=== PATIENT | female | born 1940 | race Caucasian/White ===

== ENCOUNTER → 2017-02-15 | Outpatient (CLI) | payer OTHER ==
[~2017-02-15] MED LIST: ACET-1311 PO; ALBUAER19 INH; AMOX500C3 PO; CLB/200 PO; CLOP1TAB15 PO; CLR10 PO; FLNIN NAE; GLUCTAB7 PO; HYZ/10015 PO; LIDO5DIS10 TD; LORA0.5T12 PO; METR0.754 TOP; RANI300T2 PO
[2017-02-15 11:01] LABS: ALT/SGPT 27 U/L (12-78); BLOOD UREA NITROGEN 21 mg/dl (7-18); BUN/CREATININE RATIO 24.6 (10-20); CARBON DIOXIDE 30 mmol/L (21-32); CHLORIDE 99 mmol/L (98-107); CHOLESTEROL 216 mg/dl (0-200); CREATININE 0.87 mg/dl (0.60-1.20); GLUCOSE 93 mg/dl (70-99); POTASSIUM 3.9 mmol/L (3.5-5.1); SODIUM 136 mmol/L (136-145); TRIGLYCERIDES 84 mg/dl (0-150); VERY LOW DENSITY LIPOPROT CALC 17 mg/dl
[2017-02-15 11:11] LABS: ALB/GLOB RATIO 1.3 (0.9-2); ALKALINE PHOSPHATASE 51 U/L (45-117); AST/SGOT 19 U/L (15-37); CHOLESTEROL/HDL RATIO 3.4; HDL CHOLESTEROL 64 mg/dl; LDL CHOLESTEROL CALCULATED 135 mg/dl
[2017-02-15 11:21] LABS: CALCIUM 9.8 mg/dl (8.5-10.1)
[2017-02-15 11:32] LABS: ESTIMATED AVERAGE GLUCOSE 120 mg/dl; HA1C FLAG Normal (Normal)
[2017-02-15 12:05] LABS: RATIO 4.9 mcg/mg (0-30.0)
== END | disposition home or self-care (01) ==
LOC: C.LABBC 08:27
PROVIDERS: ATTEND Family Medicine
DX: E11.9 Type 2 diabetes mellitus without complications (principal); E78.5 Hyperlipidemia, unspecified; I10 Essential (primary) hypertension

== ENCOUNTER → 2017-06-28 | Outpatient (CLI) | payer OTHER ==
--- NOTE | 2017-06-29 14:20 | MAMMOGRAPHY REPORT ---
BILATERAL DIGITAL SCREENING MAMMOGRAM WITH CAD: 06/28/2017 CLINICAL HISTORY: Routine screening. Patient has no complaints. TECHNIQUE: Bilateral CC and MLO views were obtained. Current study was also evaluated with a Compute r Aided Detection (CAD) system. COMPARISON: Comparison is made to exams dated: 06/16/2016 mammogram, 05/01/2015 mammogram, 04/11/2014 m ammogram, 04/10/2013 mammogram, 03/15/2012 mammogram, and 03/12/2011 mammogram - [facility] enter. BREAST COMPOSITION: There are scattered areas of fibroglandular density in both breasts. FINDINGS: Linear scar markers overlie each breast, denoting areas of prior surgical excisions. There are numerous stable groupings of similar appearing punctate microcavitation scattered bilaterally, s table comparing to all available prior mammograms. No new suspicious mass, unexpected area of wisam ectural distortion or cluster of new, suspicious microcalcifications is seen. IMPRESSION: ACR BI-RADS CATEGORY 1: NEGATIVE There is no mammographic evidence of malignancy. A 1 year screening mammogram is recommended. The pa tient will receive written notification of the results. Approximately 10% of breast cancers are not detected with mammography. A negative mammographic report should not delay biopsy if a clinically suggestive mass is present. Verna Frost M.D. ay/:06/28/2017 16:12:27 Correctional Officer Chief: Stephanie JUÁREZ(Danika)(Rebekah), [facility] letter sent: Normal 1/2 BI-RADS Code: ACR BI-RADS Category 1: Negative
== END | disposition home or self-care (01) ==
LOC: C.MAMM 11:30
PROVIDERS: ATTEND Obstetrics & Gynecology
DX: Z12.31 Encounter for screening mammogram for malignant neoplasm of breast (principal)

== ENCOUNTER → 2017-08-10 | Outpatient (CLI) | payer OTHER ==
--- NOTE | 2017-08-10 11:25 | DIAGNOSTIC IMAGING REPORT ---
L-SPINE MIN 4 VIEWS ROUTINE CLINICAL HISTORY: Z79.899 Long-term use of high-risk [id number] COMPARISON STUDY: No previous studies for comparison. FINDINGS: There is an S-shaped thoracolumbar scoliosis. There are moderately advanced multilevel degenerative changes. No acute fractures or traumatic subluxations are visualized. There are postsurgical changes of a total right hip arthroplasty. There are osteoarthritic changes involving the left hip. There is no pathologic bowel dilatation. IMPRESSION: 1. Scoliosis and moderately advanced multilevel degenerative change 2. No acute fractures identified Electronically signed by: Jaime Kaminski M.D. 08/10/2017 11:23 AM Dictated Date/Time: 08/10/2017 11:23 AM
--- NOTE | 2017-08-10 11:27 | DIAGNOSTIC IMAGING REPORT ---
L HIP UNILATERAL 2 VIEWS CLINICAL HISTORY: Z79.899 Long-term use of high-risk [id number] pain COMPARISON: None. DISCUSSION: Moderate rather significant degenerative narrowing left hip joint space. Mild subchondral cyst formation of the acetabulum as well as femoral head. No evidence for acetabular protrusion. Moderate degenerative change sacroiliac joint. Mild reactive osteophytic change lateral aspect left iliac wing. There is no evidence for soft tissue swelling. IMPRESSION: No significant degenerative change left hip. No acute process. The above report was generated using voice recognition software. It may contain grammatical, syntax or spelling errors. Electronically signed by: Titus Parker M.D. 08/10/2017 11:26 AM Dictated Date/Time: 08/10/2017 11:24 AM
== END | disposition home or self-care (01) ==
LOC: C.RAD1850 11:04
PROVIDERS: ATTEND Internal Medicine Rheumatology
DX: Z51.81 Encounter for therapeutic drug level monitoring (principal); Z79.899 Other long term (current) drug therapy; M41.9 Scoliosis, unspecified; M89.8X8 Other specified disorders of bone, other site

== ENCOUNTER 2017-10-18 17:23 | Emergency (ER) | payer OTHER ==
[~2017-10-18] VITALS: Ht 160 cm; Wt 68.2 kg
[2017-10-18 18:05] VITALS: TEMP 36.9; Ht 160 cm; Wt 68.2 kg
--- NOTE | 2017-10-18 19:28 | DIAGNOSTIC IMAGING REPORT ---
R VENOUS DOPP LOWER EXT UNILAT HISTORY: 77 years-old Female R calf pain, tomlinson cyst suspected. Referred for DVT study acute right leg pain COMPARISON: None available TECHNIQUE: Multiple real-time sonographic images of the right lower extremity deep venous structures were obtained assessing grayscale appearance, color and spectral flow FINDINGS: There is normal flow, phasicity, augmentation and compressibility within the right lower extremity deep venous structures. Moderately complex ovoid hypoechoic collection is noted within the popliteal fossa, 5.8 x 2.4 x 4.8 cm IMPRESSION: 1. No sonographic evidence of deep venous thrombosis. 2. Moderately complex Tomlinson's cyst, 5.8 cm. The above report was generated using voice recognition software. It may contain grammatical, syntax or spelling errors. Electronically signed by: Lloyd Black M.D. 10/18/2017 7:27 PM Dictated Date/Time: 10/18/2017 7:25 PM
--- NOTE | 2017-10-18 19:37 | EMERGENCY ROOM VISIT NOTE ---
History First contact with patient: 18:32 Chief Complaint: LEG PAIN,LEG INJURY Stated Complaint: SWOLLEN RT LEG, INTERMITTEN PAIN History of Present Illness The patient is a 77 year old female who presents to the Emergency Room via private vehicle accompanied by with complaints of "swollen right leg, intermittent pain". The patient states that she is here because of pain behind the right knee. She states that she has a Tomlinson cyst in that region. She states that unfortunately there is now pain in the calf and she is concerned about a potential blood clot. She does have a history of clots in the past. There is no chest pain, shortness of breath, fevers or chills. Review of Systems A complete 6-point Review of Systems was discussed with the patient, with pertinent positives and negatives listed in the History of Present Illness. All remaining Review of Systems questions can be considered negative unless otherwise specified. 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 Social History Smoking Status: Former Smoker Marital Status: Housing Status: lives with significant other Current/Historical Medications Scheduled Acetaminophen (Tylenol), 650 MG PO PRN Amoxicillin (Amoxil), 2,000 MG PO UD Celecoxib (CeleBREX), 200 MG PO DAILY Clopidogrel (Plavix), 75 MG PO DAILY Fluticasone Propionate (Flonase Nasal [place]), 1 SPRAY KAMALJIT prn Wxdnkgqntuf-Nvsifjqwtva-Czo C- (Glucosamine Chondroitin), 1 TAB PO BID Hctz/Losartan (Hyzaar 25MG/100MG), 1 TAB PO DAILY Loratadine (Claritin), 10 MG PO DAILY Scheduled PRN Albuterol Inhaler (Ventolin Inhaler), 2 PUFFS INH QID PRN Lidocaine (Lidoderm Patch 5% Patch), 1 PATCH TD Lorazepam (Lorazepam), 0.5 MG PO BID PRN Metronidazole Hcl (Metrocream), 1 APPLN TOP DAILY PRN Ranitidine (Zantac), 300 MG PO HS PRN Physical Exam Vital Signs Date Time Temp Pulse Resp B/P (MAP) Pulse Ox O2 Delivery O2 Flow Rate FiO2 10/18/17 20:00 87 20 147/89 94 10/18/17 18:05 36.9 75 20 168/82 96 Room Air Physical Exam VITAL SIGNS - Vital signs and nursing notes were reviewed. Stable. Hypertensive. Afebrile. GENERAL -77-year-old female appearing her stated age who is in no acute distress. Communicates well with provider and answers questions appropriately. SKIN - Without rashes. No petechial rashes. There is edema noted behind the right knee. EXTREMITIES - No clubbing or peripheral cyanosis. No pretibial edema present. Tenderness to palpation overlying a small mass behind the right knee suspected beer Tomlinson cyst. Positive Homans sign. She is neurovascularly intact in this region. +5/5 strength noted in UE/LE bilaterally. Medical Decision & Procedures ER Provider Diagnostic Interpretation: R VENOUS DOPP LOWER EXT UNILAT HISTORY: 77 years-old Female R calf pain, tomlinson cyst suspected. Referred for DVT study acute right leg pain COMPARISON: None available TECHNIQUE: Multiple real-time sonographic images of the right lower extremity deep venous structures were obtained assessing grayscale appearance, color and spectral flow FINDINGS: There is normal flow, phasicity, augmentation and compressibility within the right lower extremity deep venous structures. Moderately complex ovoid hypoechoic collection is noted within the popliteal fossa, 5.8 x 2.4 x 4.8 cm IMPRESSION: 1. No sonographic evidence of deep venous thrombosis. 2. Moderately complex Tomlinson's cyst, 5.8 cm. The above report was generated using voice recognition software. It may contain grammatical, syntax or spelling errors. Electronically signed by: Lloyd Black M.D. 10/18/2017 7:27 PM Dictated Date/Time: 10/18/2017 7:25 PM Medical Decision Patient was seen and evaluated as above. She presents to us today with right calf pain. There is a known Tomlinson's cyst. I suspect this to be the cause of her pain. Ultrasound was obtained to rule out DVT. Results as above. No DVT noted. The Tomlinson's cyst will need to be followed with orthopedics. She is to call them tomorrow. Her vital signs reveal hypertension. Medication list was reviewed. At this time she appears stable for outpatient management. She was educated upon management, educated upon worrisome symptoms in which to return, had questions answered prior to discharge, and was discharged home in good condition. In the evaluation and treatment of this patient, the following differential diagnoses were considered: Patellar Fracture, DVT, Popliteal cyst, Tibial Plateau Fracture, Distal Femur Fracture, ACL Injury, PCL Injury, Collateral Ligament Injury, Pes Anserine Bursitis, Maisonneuve Fracture. Impression Primary Impression: Leg pain, right Additional Impression: Popliteal cyst Departure Information Dispostion Home / Self-Care Condition GOOD Referrals Jess Hirsch MD (PCP) Patient Instructions My [facility] Additional Instructions You have been treated in the Emergency Department for behind the Knee Pain and calf pain. I recommended elevation and compression of this region Please call Dr. Izquierdo tomorrow to schedule follow-up. Return to the Emergency Department if your current symptoms worsen despite treatment course outlined above. R VENOUS DOPP LOWER EXT UNILAT HISTORY: 77 years-old Female R calf pain, tomlinson cyst suspected. Referred for DVT study acute right leg pain COMPARISON: None available TECHNIQUE: Multiple real-time sonographic images of the right lower extremity deep venous structures were obtained assessing grayscale appearance, color and spectral flow FINDINGS: There is normal flow, phasicity, augmentation and compressibility within the right lower extremity deep venous structures. Moderately complex ovoid hypoechoic collection is noted within the popliteal fossa, 5.8 x 2.4 x 4.8 cm IMPRESSION: 1. No sonographic evidence of deep venous thrombosis. 2. Moderately complex Tomlinson's cyst, 5.8 cm. The above report was generated using voice recognition software. It may contain grammatical, syntax or spelling errors. Electronically signed by: Lloyd Black M.D. 10/18/2017 7:27 PM Dictated Date/Time: 10/18/2017 7:25 PM Problem Qualifiers
[2017-10-18 20:00] VITALS: BP 147/89; PULSE 87; O2SAT 94
[2018-02-02] MEDS ORDERED: ACET-1256 PO (12:35)
[2018-02-02] MEDS ORDERED: VNTHFA/IN INH (12:35)
[2018-02-02] MEDS ORDERED: METR0.754 TOP (12:38)
[2018-02-02] MEDS ORDERED: FLUT0.15 INTNAS (12:38)
[2018-02-02] MEDS ORDERED: LIDO5CRE13 TOP (12:38)
[2018-02-02] MEDS ORDERED: ATOR10TA82 PO (12:40)
[2018-02-02] MEDS ORDERED: ESTRACE PV (12:40)
[2018-02-22] MEDS ORDERED: ACET-24 PO (09:39)
[2018-02-22] MEDS ORDERED: ULT50X PO (09:39)
[2018-02-22] MEDS ORDERED: FRRG PO (09:39)
[2018-02-22] MEDS ORDERED: XRL10 PO (09:39)
== END 2017-10-18 20:01 | disposition home or self-care (01) ==
LOC: C.EDB 17:25 → C.EDD 20:01
DX: M79.661 Pain in right lower leg (principal); M71.21 Synovial cyst of popliteal space [Baker], right knee; I10 Essential (primary) hypertension; Z86.718 Personal history of other venous thrombosis and embolism; Z86.711 Personal history of pulmonary embolism; Z96.649 Presence of unspecified artificial hip joint

== ENCOUNTER → 2017-11-29 | Outpatient (CLI) | payer OTHER | END | disposition home or self-care (01) | LOC: C.PAPS 14:29 | PROVIDERS: ATTEND Obstetrics & Gynecology | DX: Z12.4 Encounter for screening for malignant neoplasm of cervix (principal); N95.2 Postmenopausal atrophic vaginitis; R87.616 Satisfactory cervical smear but lacking transformation zone ==

== ENCOUNTER → 2017-12-26 | Outpatient (CLI) | payer OTHER ==
--- NOTE | 2017-12-26 12:05 | DIAGNOSTIC IMAGING REPORT ---
TWO VIEW CHEST CLINICAL HISTORY: Hemoptysis. FINDINGS: PA and lateral chest radiographs are compared to study dated 08/30/2016. The cardiomediastinal silhouette is unremarkable. The lungs and pleural spaces are clear. There is no pneumothorax. The skeletal structures are osteopenic. Degenerative changes noted throughout the thoracic spine. IMPRESSION: No active disease in the chest. Electronically signed by: Alex Carranza M.D. 12/26/2017 12:04 PM Dictated Date/Time: 12/26/2017 12:03 PM
== END | disposition home or self-care (01) ==
LOC: C.RAD1850 11:50
PROVIDERS: ATTEND Physician Assistant Medical
DX: R04.2 Hemoptysis (principal)

== ENCOUNTER → 2018-01-24 | Outpatient (CLI) | payer OTHER ==
[~2018-01-24] MED LIST changes: +ACET-1256 PO; +ATOR10TA82 PO; +ESTRACE PV; +FLUT0.15 INTNAS; +LIDO5CRE13 TOP; +VNTHFA/IN INH
[2018-01-24 12:27] LABS: BASO % 0.8 %; BASO ABS # 0.04 K/uL (0-0.2); EOS % 5.1 %; EOS ABS # 0.25 K/uL (0-0.5); HEMATOCRIT 39.5 % (37-47); HEMOGLOBIN 13.2 g/dL (12.0-16.0); IG# 0.01 K/uL (0.00-0.02); LYMPH % 17.8 %; LYMPH ABS # 0.87 K/uL (1.2-3.4); MEAN CELL VOLUME 91.6 fL (80-100); MEAN CORPUSCULAR HEMOGLOBIN 30.6 pg (25-34); MEAN CORPUSCULAR HGB CONC 33.4 g/dl (32-36); MEAN PLATELET VOLUME 11.2 fL (7.4-10.4); MONO % 7.4 %; MONO ABS # 0.36 K/uL (0.11-0.59); NEUT % 68.7 %; NEUT ABS # 3.35 K/uL (1.4-6.5); PLATELET COUNT 176 K/uL (130-400); RED CELL DISTRIBUTION WIDTH CV 13.3 % (11.5-14.5); RED CELL DISTRIBUTION WIDTH SD 44.6 fL (36.4-46.3); WHITE BLOOD COUNT 4.88 K/uL (4.8-10.8)
[2018-01-24 12:54] LABS: ALBUMIN 3.8 gm/dl (3.4-5.0); ALT/SGPT 24 U/L (12-78); BLOOD UREA NITROGEN 19 mg/dl (7-18); CALCIUM 8.9 mg/dl (8.5-10.1); CARBON DIOXIDE 27 mmol/L (21-32); CREATININE 0.89 mg/dl (0.60-1.20); GLUCOSE 80 mg/dl (70-99); POTASSIUM 3.9 mmol/L (3.5-5.1); SODIUM 133 mmol/L (136-145)
[2018-01-24 13:05] LABS: ALKALINE PHOSPHATASE 64 U/L (45-117); AST/SGOT 18 U/L (15-37)
== END | disposition home or self-care (01) ==
LOC: C.LAB 11:21
PROVIDERS: ATTEND Psychiatry & Neurology Neurology
DX: M54.40 Lumbago with sciatica, unspecified side (principal); G31.84 Mild cognitive impairment of uncertain or unknown etiology

== ENCOUNTER → 2018-01-30 | Outpatient (CLI) | payer OTHER ==
[~2018-01-30] MED LIST changes: +GADAVIST IV PRN
--- NOTE | 2018-01-30 12:47 | DIAGNOSTIC IMAGING REPORT ---
Brain MRI WITH AND WITHOUT CONTRAST HISTORY: CHRONIC CEREBRAL ISCHEMIA TECHNIQUE: Multiplanar multisequence MRI of the brain was performed both before and after the intravenous administration of contrast. COMPARISON STUDY: Head CT 09/29/2013. FINDINGS: There is no mass, hematoma, midline shift, or acute infarct. The paranasal sinuses are clear. The mastoid air cells are clear. The ventricles and sulci demonstrate mild age-related involutional changes. Scattered foci of T2 hyperintensity seen within the periventricular and subcortical white matter are nonspecific but suggestive of mild microvascular ischemic changes. The major vascular flow voids at the skull base are well-maintained. No abnormal enhancement. Punctate focus of susceptibility artifact within the left occipital lobe favors a calcification. IMPRESSION: No acute intracranial abnormality. Scattered foci of T2 hyperintensity seen within the periventricular and subcortical white matter are nonspecific but favor mild microvascular ischemic change. Electronically signed by: Ryan Rubi M.D. 01/30/2018 12:46 PM Dictated Date/Time: 01/30/2018 12:28 PM
== END | disposition home or self-care (01) ==
LOC: C.MRIBC 11:23
PROVIDERS: ATTEND Psychiatry & Neurology Neurology
DX: G31.84 Mild cognitive impairment of uncertain or unknown etiology (principal); I67.82 Cerebral ischemia

== ENCOUNTER 2018-02-21 05:07 | Inpatient (IN) | payer OTHER ==
[2018-02-02 12:41] VITALS: BMI 27.0
--- NOTE | 2018-02-02 13:49 | PAT Medication Instructions ---
Service Date Feb 02, 2018. Current Home Medication List Acetaminophen (Tylenol), 1,000 MG PO TID PRN for RN Albuterol Hfa (Ventolin Hfa), 2 PUFFS INH Q6H PRN for PRN Amoxicillin (Amoxil), 2,000 MG PO UD Atorvastatin (Lipitor), 10 MG PO 3XWEEK Celecoxib (CeleBREX), 200 MG PO Q2D Clopidogrel (Plavix), 75 MG PO QAM Fluticasone Propionate (Nasal) (Flonase Allergy Relief), 1 SPRAY INTNAS PRN Uyqhohgxyqn-Aqrykhwwsde-Lod C- (Glucosamine Chondroitin), 1 TAB PO BID Hctz/Losartan (Hyzaar 25MG/100MG), 1 TAB PO QAM Lidocaine (Anorectal) (Lidocaine 5%), 1 DOSE TOP PRN Lorazepam (Lorazepam), 0.5 MG PO BID PRN Metronidazole (Topical) (Metrocream), 1 APPLN TOP HS Ranitidine (Zantac), 300 MG PO BID [Estrace Cr], 1 DOSE PV PN Medication Instructions For Your Scheduled Surgery -Continue as needed for dental procedures: Amoxicillin (Amoxil), 2,000 MG PO UD -Check with the surgeon for instructions for: Celecoxib (CeleBREX), 200 MG PO Q2D -Contact your prescriber (Dr. Hirsch) for instructions for: Clopidogrel (Plavix), 75 MG PO QAM - Hold the following medications 2 weeks prior to surgery: Rbkbsffmemz-Mhoocrepqeo-Cil C- (Glucosamine Chondroitin), 1 TAB PO BID - Hold the following medications 24 hours prior to surgery: Lidocaine (Anorectal) (Lidocaine 5%), 1 DOSE TOP PRN Metronidazole (Topical) (Metrocream), 1 APPLN TOP HS [Estrace Cr], 1 DOSE PV PN - Hold the following medications the morning of surgery: Hctz/Losartan (Hyzaar 25MG/100MG), 1 TAB PO QAM - Take the following medications the morning of surgery with a sip of water: Acetaminophen (Tylenol), 1,000 MG PO TID PRN for RN Albuterol Hfa (Ventolin Hfa), 2 PUFFS INH Q6H PRN for PRN Fluticasone Propionate (Nasal) (Flonase Allergy Relief), 1 SPRAY INTNAS PRN Lorazepam (Lorazepam), 0.5 MG PO BID PRN Ranitidine (Zantac), 300 MG PO BID - Take the following medications as scheduled the night before surgery: Acetaminophen (Tylenol), 1,000 MG PO TID PRN for RN Albuterol Hfa (Ventolin Hfa), 2 PUFFS INH Q6H PRN for PRN Atorvastatin (Lipitor), 10 MG PO 3XWEEK Fluticasone Propionate (Nasal) (Flonase Allergy Relief), 1 SPRAY INTNAS PRN Lorazepam (Lorazepam), 0.5 MG PO BID PRN Ranitidine (Zantac), 300 MG PO BID If you have any questions please call us at [phone] or [phone] or [phone]
--- NOTE | 2018-02-02 14:20 | DIAGNOSTIC IMAGING REPORT ---
CHEST 2 VIEWS ROUTINE CLINICAL HISTORY: Preoperative chest COMPARISON STUDY: 12/26/2017 FINDINGS: The cardiac and mediastinal contours are normal. There is no evidence of focal pulmonary consolidation. There is no evidence of failure. No pleural effusions are visualized.[ There is stable as are interstitial thickening IMPRESSION: No active disease in the chest. Electronically signed by: Jaime Kaminski M.D. 02/02/2018 2:19 PM Dictated Date/Time: 02/02/2018 2:18 PM
[2018-02-02 14:24] LABS: PTT PATIENT 30.9 SECONDS (21.0-31.0)
--- NOTE | 2018-02-17 16:07 | HISTORY & PHYSICAL EXAMINATION ---
DATE OF ADMISSION: 02/21/2018 CHIEF COMPLAINT: Left hip pain. HISTORY OF PRESENT ILLNESS: A 77-year-old female well known to me from a previous right hip replacement done about 5 years ago who presents for treatment of her left hip. She has got a several year history of increasing left hip pain and discomfort, has gotten significantly worse over the past several months. She has got groin pain, thigh pain radiating down to her knee. She has got some buttock pain. She has difficulty putting her shoes and socks on. The more she walks, the more she limps. She is happy with the right hip and would like to have her left hip fixed. PAST MEDICAL HISTORY: Significant for: 1. TIA, stroke without residual sequelae, been on Plavix. 2. Hypertension. 3. Elevated cholesterol. 4. 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 5. Back pain/scoliosis. PAST SURGICAL HISTORY: Previous surgeries include; 1. Right total hip replacement done on 02/05/2013. 2. Tonsillectomy. 3. Appendectomy. 4. Tubal ligation. 5. Bilateral carpal tunnel releases. 6. Carotid endarterectomy. 7. Right shoulder surgery. ALLERGIES: LATEX AND CONTRAST DYE. CURRENT MEDICINES: Include; 1. Plavix 75 mg. 2. QVAR inhaler 2 puffs twice a day. 3. ProAir inhaler 2 puffs every 4 hours. 4. Lorazepam 0.5 mg half a tablet twice a day as needed. 5. Celebrex 200 mg every other day. 6. Lidocaine patch. 7. Atorvastatin. 8. Ranitidine. 9. Glucosamine. 10. Methylprednisolone. 11. Losartan/hydrochlorothiazide. 12. Ondansetron. 13. Estradiol cream. 14. Fluticasone nasal suspension. 15. Metronidazole cream. 16. Tylenol. SOCIAL HISTORY: This is a 77-year-old female. She is . She is a retired teacher. Does not smoke. FAMILY HISTORY: Noncontributory. REVIEW OF SYSTEMS: Significant for rheumatoid disease managed by Dr. Pinto in the past. Denies any current chest pain or shortness of breath. She does have the history of DVT and PE after previous hip surgery. No known clotting disorder. She is off blood thinners other than Plavix for her cerebrovascular disease. PHYSICAL EXAMINATION: GENERAL: This is a pleasant, thin, healthy appearing female. Looks to be in good health. HEENT: Benign. NECK: Supple. No lymphadenopathy. LUNGS: Clear to auscultation. HEART: Has a regular rate and rhythm. ABDOMEN: Soft, nontender, nondistended. EXTREMITIES: Grossly neurovascularly intact except as follows. Examination of the left hip and leg reveals the patient walks with an antalgic gait. Leg lengths clinically appear pretty equal. She has got a pretty stiff hip with internal rotation and neutral at best and external rotation to 20 degrees. She has pain with any type of hip motion. Negative straight leg raise. X-RAYS: X-ray of the left hip were reviewed. Shows advanced left hip DJD. She has complete loss of her joint space. She has cystic changes particularly the acetabulum. Right hip replacement looks to be in good position without signs of problems. ASSESSMENT: A 77-year-old female status post a right hip replacement 5 years ago complicated by a pulmonary embolism with advanced left hip degenerative joint disease. She has failed conservative treatment and would like to have her left hip replaced. PLAN: We talked about treatment. We are going to take her to the operating room and do a left total hip replacement. The risks and benefits of this procedure were explained to the patient to include but not limited to DVT, PE, , infection, neurological injury, vascular injury, bleeding problem, pain, limited range of motion, stiffness, failure to relieve symptoms, incomplete relief of symptoms, fracture, leg length inequality, nerve palsy, recurrent dislocation, fracture and is specifically of DVT, PE. The patient understands and desires. Informed consent was obtained. I did explain to her that she is at increased risk of a blood clot due to her history. Told to stop her Plavix a week before and we will likely put her on Xarelto postoperatively. The patient understands and desires to proceed.
[2018-02-21] VITALS (21 sets, daily range): BP systolic 111–143; BP diastolic 57–78; PULSE 60–87; TEMP 34.9–37.3; O2SAT 94–100; Ht 157.5 cm; Wt 66.7 kg
[~2018-02-21] VITALS: Ht 157.5 cm; Wt 66.7 kg
[~2018-02-21 05:07] MED LIST changes: -ACET-1311 PO; -ALBUAER19 INH; -CLR10 PO; -FLNIN NAE; -GADAVIST IV PRN; -LIDO5DIS10 TD
[2018-02-21] MEDS ORDERED: METOCLOPRAMIDE HCL 10 MG TAB PO SCH (06:00)
[2018-02-21] MEDS ORDERED: ACETAMINOPHEN 500 MG TAB PO SCH (06:00)
[2018-02-21] MEDS ORDERED: GABAPENTIN 300 MG CAP PO SCH (06:00)
[2018-02-21] MEDS ORDERED: TRANEXAMIC ACID INJ 1,000 MG x 1 Bag Preop IV SCH ×2 (06:00)
[2018-02-21] MEDS ORDERED: LACTATED RINGER'S 1000ML 1,000 ML IV SCH (06:00)
[2018-02-21] MEDS ORDERED: FAMOTIDINE 20 MG TAB PO SCH (06:00)
[2018-02-21] MEDS ORDERED: LACTATED RINGER'S 1000ML IV SCH (06:00)
[2018-02-21] MEDS ORDERED: CEFAZOLIN 2000MG IV PUSH 15 ML IV SCH (06:00)
[2018-02-21] MEDS ORDERED: FENTANYL CITRATE INJ 50 MCG/1 ML 2 ML VIAL ONE (06:21)
[2018-02-21] MEDS ORDERED: MIDAZOLAM HCL 1 MG/ML 2ML VIAL ONE (06:21)
[2018-02-21] MEDS ORDERED: PROPOFOL IV EMULSION 10 MG/ML 20 ML VIAL ONE (06:21)
[2018-02-21] MEDS ORDERED: BUPIVACAINE/EPINEPHRINE 0.5% MPF 1:200,000 30 ML VIAL ONE ×2 (06:29→06:31)
[2018-02-21] MEDS ORDERED: BACITRACIN 50000 UNIT VIAL ONE (06:29)
[2018-02-21] MEDS ORDERED: MoRPHine SULFATE PF 1 MG/ML 10 ML AMP/VIAL ONE (06:30)
[2018-02-21] MEDS ORDERED: BUPIVACAINE 0.5 % 5 MG/1 ML PF 10ML VIAL ONE ×2 (06:42→06:46)
--- NOTE | 2018-02-21 06:53 | History & Physical Bridge Note ---
H&P Re-Evaluation Bridge Note: I have examined the patient, reviewed the History & Physical and in the interval since the performance of the History & Physical I have noted the following changes of clinical significance: No changes noted
[2018-02-21] MEDS ORDERED: NURSING VERBAL MED ORDER STA (07:20)
[2018-02-21] MEDS ORDERED: ATROPINE SULFATE 0.1 MG/ML 5ML SYR IV PRN (07:30)
[2018-02-21] MEDS ORDERED: FENTANYL CITRATE INJ 50 MCG/1 ML 2 ML VIAL IV PRN (07:30)
[2018-02-21] MEDS ORDERED: ONDANSETRON INJ 2 MG/ML 2 ML VIAL IV PRN ×2 (07:30→09:15)
[2018-02-21] MEDS ORDERED: EpHEDrine SULFATE INJ 50 MG/ML AMP IV PRN ×2 (07:30→09:15)
[2018-02-21] MEDS ORDERED: PHENYLEPHRINE 100MCG/ML 5ML SYR ONE (07:34)
--- NOTE | 2018-02-21 08:23 | [facility] Post Operative Brief Note ---
Immediate Operative Summary Operative Date February 21, 2018. Pre-Operative Diagnosis Left Hip Degenerative Joint Disease Post-Operative Diagnosis Same as Preop Procedure(s) Performed Left Total Hip Arthroplasty Uncemented Surgeon Dr. Izquierdo [employer] Consultant Surgeon(s) Cameron Ely PA-C Estimated Blood Loss 200 ml Findings Consistent with Post-Op Diagnosis Fluids (cc crystalloids) 1500 CC Specimens A. Left Femoral Head Drains None Anesthesia Type Spinal MAC Complication(s) none Disposition Accompanied Pt To Recover: yes Disposition: Recovery Room / PACU
[2018-02-21] MEDS ORDERED: ALBUTEROL HFA 8 GM INHALER INH PRN (08:30)
[2018-02-21] MEDS ORDERED: ALUMINUM/MAGNESIUM/SIMETH (MAALOX MAX) 30 ML UDC PO PRN (08:30)
[2018-02-21] MEDS ORDERED: MAGNESIUM HYDROXIDE SUSP 30 ML UDC PO PRN (08:30)
[2018-02-21] MEDS ORDERED: SILVER SULFADIAZINE 1% CR 50 GM JAR EXT PRN (08:30)
[2018-02-21] MEDS ORDERED: FLUTICASONE PROPIONATE NA SPR 16 GM BTL PRN (08:30)
[2018-02-21] MEDS ORDERED: BISACODYL 10 MG SUPP PR PRN (08:30)
--- NOTE | 2018-02-21 08:58 | DIAGNOSTIC IMAGING REPORT ---
L PELVIS/UNILATERAL HIP 1 VIEW CLINICAL HISTORY: 77 years-old Female presenting with IN PACU - A/P PELVIS and LATERAL HIP INCLUDING ALL OF IMPLANT. TECHNIQUE: Serial frontal view of the pelvis and crosstable lateral view of the left hip were obtained. COMPARISON: 02/13/2018. FINDINGS: There has been interval total left hip arthroplasty. Expected soft tissue emphysema and overlying skin tammy. A Jeffrey catheter is in place. Redemonstration of the total right hip arthroplasty. No periprosthetic fracture. No malalignment. No hardware complication is apparent. Visualized portion of the bony pelvis intact. IMPRESSION: Expected postsurgical changes status post total left hip arthroplasty. Electronically signed by: Elie Camargo M.D. 02/21/2018 8:57 AM Dictated Date/Time: 02/21/2018 8:55 AM
[2018-02-21] MEDS ORDERED: NALOXONE HCL INJ 1 MG in SODIUM CHLORIDE 0.9% 1000ML 1,000 ML IV PRN (09:13)
[2018-02-21] MEDS ORDERED: LACTATED RINGER'S 1000ML 500 ML IV PRN (09:13)
[2018-02-21] MEDS ORDERED: NALOXONE HCL INJ 0.08 MG in SYRINGE 1.8 ML IV PRN (09:13)
[2018-02-21] MEDS ORDERED: SODIUM CHLORIDE 0.9% 1000ML 1,000 ML IV PRN (09:13)
--- NOTE | 2018-02-21 09:13 | Anesthesiology Progress Note ---
Anesthesia Post Op Note Date & Time February 21, 2018 at 09:13 Vital Signs Pain Intensity: 0 Vital Signs Past 12 Hours Date Time Temp Pulse Resp B/P (MAP) Pulse Ox O2 Delivery O2 Flow Rate FiO2 02/21/18 09:05 36.1 73 12 113/54 98 Nasal Cannula 2 02/21/18 08:55 71 12 115/53 98 Nasal Cannula 2 02/21/18 08:45 75 13 119/53 96 Nasal Cannula 2 02/21/18 08:35 77 12 124/55 97 Nasal Cannula 2 02/21/18 08:26 36.1 78 13 123/60 98 Nasal Cannula 2 02/21/18 05:46 36.9 72 18 143/78 97 Room Air Notes Mental Status: alert / awake / arousable, participated in evaluation Pt Amnestic to Procedure: Yes Nausea / Vomiting: adequately controlled Pain: adequately controlled Airway Patency, RR, SpO2: stable & adequate BP & HR: stable & adequate Hydration State: stable & adequate Neuraxial Anesthesia: was administered, sensory block is resolving Anesthetic Complications: no major complications apparent
[2018-02-21] MEDS ORDERED: PROMETHAZINE HCL INJ 6.25 MG in SODIUM CHLORIDE 0.9% 50ML 50 ML IV PRN (09:15)
[2018-02-21] MEDS ORDERED: MoRPHine SULFATE 2 MG/ML CARP IV PRN (09:15)
[2018-02-21] MEDS ORDERED: NO NARCOTICS OR SEDATIVES SCH (09:15)
[2018-02-21] MEDS ORDERED: NALOXONE HCL 0.4 MG/1 ML VIAL/CARP IV PRN (09:15)
[2018-02-21] MEDS ORDERED: LORAZEPAM 1 MG TAB PO PRN (09:15)
[2018-02-21] MEDS ORDERED: KETOROLAC TROMETHAMINE 15 MG/ML VIAL IV. PRN (09:15)
[2018-02-21] MEDS ORDERED: DiphenhydrAMINE HCL 50 MG/ML VIAL IV PRN ×2 (09:15)
[2018-02-21] MEDS ORDERED: LORAZEPAM INJ 0.5 MG in SYRINGE 0.75 ML IV PRN (09:15)
[2018-02-21] MEDS ORDERED: MEPERIDINE HCL 25 MG/ML CARP IV PRN (09:15)
[2018-02-21] MEDS ORDERED: MoRPHine SULFATE PF 1 MG/ML 10 ML AMP/VIAL EPI PRN (09:15)
[2018-02-21] MEDS ORDERED: NALBUPHINE HCL INJ 10 MG/ML AMP IV PRN (09:15)
[2018-02-21] MEDS: D5W AND 1/2NSS + 20MEQ KCL 1,000 ML IV SCH ×2 (12:00→21:41)
[2018-02-21] MEDS: CLOPIDOGREL BISULFATE 75 MG TAB PO SCH (12:01)
[2018-02-21] MEDS: MULTIVITAMIN TAB PO SCH (12:01)
[2018-02-21] MEDS: DOCUSATE SODIUM 100 MG CAP PO SCH ×2 (12:01→21:41)
[2018-02-21] MEDS: PANTOprazole SOD 40 MG TAB PO SCH (12:01)
--- NOTE | 2018-02-21 12:44 | OPERATIVE REPORT ---
DATE OF OPERATION: 02/21/2018 SURGEON: Anthony Izquierdo MD JOURNEYMAN PIPE FITTER: DARY Stringer PREOPERATIVE DIAGNOSIS: Left hip degenerative joint disease. POSTOPERATIVE DIAGNOSIS: Left hip degenerative joint disease. PROCEDURE PERFORMED: Left uncemented ceramic on highly cross-linked poly total hip arthroplasty. COMPLICATIONS: None. ESTIMATED BLOOD LOSS: 200 mL. FLUID REPLACEMENT: 1500 mL crystalloid fluid replacement. ANESTHESIA: Spinal. DRAINS: None. SPECIMENS: Left femoral head sent for pathology. OPERATIVE INDICATIONS: The patient is a 77-year-old female who has had a long history of hip problems. She underwent a right hip replacement 5 years ago and has done well from this. Over the past several years, she developed increased pain and discomfort in the left hip, unresponsive to conservative treatment. X-ray showed advanced hip arthritis. She elected to proceed with total hip arthroplasty. OPERATIVE FINDINGS: Operative findings revealed advanced left hip DJD. 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 Moderate size joint effusion. Mild synovitis. A pretty good bone density. OPERATIVE IMPLANTS: Operative implants consisted of: 1. A Biomet G7 size 50 mm acetabular shell. 2. A 6.5 cancellous acetabular screws, 1 at 35 mm length and 1 at 20 mm in length. 3. An apex hole eliminator. 4. A highly cross-linked polyethylene liner with a 30 mm outer diameter and 32 mm inner diameter. 5. DePuy CORAIL size 12 KLA/coxa vara femoral stem. 6. A +5/32 mm ceramic articular ball. OPERATIVE PROCEDURE: The patient was taken to the operating room, identified and placed on the operative table in supine position. All contact areas were appropriately padded. IV antibiotics followed by anesthesia team. Spinal anesthetic had been implemented in the holding area. Jeffrey catheter was placed in sterile fashion. The patient was then placed in the right lateral decubitus position. An axillary roll was placed. Stlberg hip positioner used for positioning. Left hip and leg were then prepped and draped in usual sterile fashion. A posterolateral approach to the left hip was then performed through a curvilinear incision centered over the greater trochanter. Sharp dissection was carried through subcutaneous tissue down over the IT band and gluteal fascia. The IT band and gluteal fascia were incised longitudinally in line with skin incision. The underlying greater trochanteric bursa was excised. The piriformis external rotators were tagged and taken off the posterior aspect of the femur. Great care was taken throughout the procedure to protect the sciatic nerve at all times. Hip was internally rotated and dislocated. Femoral neck osteotomy cut was made with the final cut 8 mm above the lesser trochanter. Femoral head was removed and sent for pathology. The femur was retracted anteriorly. Attention was then drawn to the acetabulum. The acetabular labrum was excised. The pulvinar fat was excised. Sequential reaming of the acetabulum was then performed beginning with size 43 and progressing up to 49. A 50 mm Biomet G7 acetabular shell was then placed in about 40 degrees of lateral opening and 20 degrees of anteversion. It was fixed with two 6.5 cancellous acetabular screws. A trial liner was placed. Attention was then drawn to the femur. The proximal femur was entered with a cookie cutter followed by canal finder. I then broached beginning with a size 8 and progressing up to a size 12. I got excellent fit at 12. Calcar reamer was used to smoothen off the calcar. We then trialed the hip and the +5 articular ball provided full stability and full extension and external rotation and flexion to 90 degrees, internal rotation to 60+ degrees. I elected to use these implants. All trial implants were removed. An apex hole eliminator was placed. Highly cross-linked polyethylene liner was placed. A DePuy CORAIL a size 12 KLA/coxa vara femoral stem was impacted in position. A +5/32 mm ceramic articular ball was placed. Hip was located and once again found to be stable. Attention was then drawn toward closing. The wound was irrigated with copious amounts of pulsatile lavage solution. I did inject locally with 50 mL of 0.5% Marcaine with epinephrine. The posterior capsule and external rotators were then repaired through drill holes in the posterior trochanter with #2 Ti-Cron suture. The IT band and gluteal fascia were then closed with #1 PDS suture in a running fashion. The subcutaneous tissue was then closed in 2 layers, the deep layer with #1 Vicryl suture and the subcutaneous tissues with 2-0 Dexon suture in a buried interrupted fashion. The skin was closed with skin tammy. Leg was then cleaned and dried and a sterile dressing of Xeroform, 4 x 4's, ABD pad and foam tape was applied. The patient then transferred to the recovery room in stable condition. The patient tolerated the procedure well with no complications. All needle and sponge counts were correct at the end of the operation. I attest to the content of the Intraoperative Record and any orders documented therein. Any exception s are noted below.
--- NOTE | 2018-02-21 13:33 | PROGRESS NOTE ---
DATE: 02/21/2018 SUBJECTIVE: This is a 77-year-old white female, postop from a left hip replacement. She is doing well. Not having any pain yet. No chest pain or shortness of breath. Not feeling dizzy or lightheaded. OBJECTIVE: VITAL SIGNS: Temperature 36.6. Vital signs stable. PHYSICAL EXAMINATION: GENERAL: Physical exam shows a pleasant elderly female. She is sitting up in bed. She is awake, alert, and appropriate. She is talking to her family. LUNGS: Clear to auscultation. HEART: Heart has a regular rate and rhythm. ABDOMEN: Soft, nontender, nondistended. EXTREMITIES: Grossly neurovascularly intact except as follows: Examination of the left hip and leg reveals the leg to be well-aligned. Hip is located. Dressing is clean, dry, and intact. She can dorsiflex and plantarflex her foot appropriately. X-RAYS: X-rays of the right hip from recovery room reviewed. Shows left uncemented total hip arthroplasty. Components are in good position. No signs of problems. ASSESSMENT: This is a 77-year-old white female, postop from a left hip replacement, doing well. Pain is controlled. She is neurologically intact. 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 PLAN: 1. DVT prophylaxis including thigh-high TEDs, SCDs, and we will put her back on her Plavix and we will start Xarelto 24 hours postop for 1-month. 2. PT/OT. Weightbear as tolerated. Left total knee protocol. 3. Pain control, doing well with current pain regimen. 4. IV antibiotics x24 hours. 5. Disposition: She is hoping to be discharged home with some home health once adequately recovered.
[2018-02-21] MEDS: FERROUS GLUCONATE 324 MG TAB PO SCH ×2 (13:40→17:45)
[2018-02-21] MEDS: ACETAMINOPHEN 500 MG TAB PO SCH ×2 (13:41→21:41)
[2018-02-21] MEDS: CEFAZOLIN IV 1,000 MG in SYRINGE 0 ML IV SCH ×2 (13:42→21:38)
[2018-02-21] MEDS: METRONIDAZOLE TOP SCH (21:00)
[2018-02-21] MEDS: SENNA 8.6 MG TAB PO SCH (21:43)
[2018-02-21] MEDS: RANITIDINE HCL 150 MG TAB PO SCH (21:44)
[2018-02-21] MEDS: ATORVASTATIN 10 MG TAB PO SCH (21:44)
[2018-02-22] VITALS (13 sets, daily range): BP systolic 95–130; BP diastolic 57–67; PULSE 70–84; TEMP 36.7–37.9; O2SAT 87–100
[2018-02-22] MEDS: ACETAMINOPHEN 500 MG TAB PO SCH ×3 (06:04→21:06)
[2018-02-22 06:16] LABS: BASO % 0.1 %; BASO ABS # 0.01 K/uL (0-0.2); EOS % 0.1 %; EOS ABS # 0.01 K/uL (0-0.5); HEMATOCRIT 30.2 % (37-47); IG# 0.02 K/uL (0.00-0.02); LYMPH % 7.7 %; LYMPH ABS # 0.58 K/uL (1.2-3.4); MEAN CELL VOLUME 91.5 fL (80-100); MEAN CORPUSCULAR HEMOGLOBIN 30.3 pg (25-34); MEAN CORPUSCULAR HGB CONC 33.1 g/dl (32-36); MEAN PLATELET VOLUME 10.7 fL (7.4-10.4); MONO % 10.8 %; MONO ABS # 0.82 K/uL (0.11-0.59); NEUT ABS # 6.13 K/uL (1.4-6.5); PLATELET COUNT 128 K/uL (130-400); RED CELL DISTRIBUTION WIDTH CV 13.5 % (11.5-14.5); RED CELL DISTRIBUTION WIDTH SD 45.2 fL (36.4-46.3); WHITE BLOOD COUNT 7.57 K/uL (4.8-10.8)
[2018-02-22 06:42] LABS: CREATININE 0.74 mg/dl (0.60-1.20); POTASSIUM 3.9 mmol/L (3.5-5.1)
[2018-02-22] MEDS ORDERED: DC INTRASPINAL MORPHINE SCH (07:00)
[2018-02-22] MEDS ORDERED: HYDROmorphone INJ 0.5 MG/0.5 ML SYR IV PRN (07:01)
[2018-02-22] MEDS ORDERED: METOCLOPRAMIDE HCL INJ 5 MG/ML 2 ML VIAL IV PRN (07:01)
[2018-02-22] MEDS ORDERED: ZOLPIDEM TARTRATE 5 MG TAB PO PRN (07:01)
[2018-02-22] MEDS ORDERED: LORAZEPAM 0.5 MG TAB PO PRN (07:01)
[2018-02-22] MEDS ORDERED: ONDANSETRON INJ 2 MG/ML 2 ML VIAL IV PRN (07:01)
[2018-02-22] MEDS: KETOROLAC TROMETHAMINE 15 MG/ML VIAL IV. SCH ×3 (08:18→20:57)
[2018-02-22] MEDS: FERROUS GLUCONATE 324 MG TAB PO SCH ×3 (08:18→18:28)
[2018-02-22] MEDS: DOCUSATE SODIUM 100 MG CAP PO SCH ×2 (08:19→20:57)
[2018-02-22] MEDS: RIVAROXABAN 10 MG TAB PO SCH (08:19)
[2018-02-22] MEDS: PANTOprazole SOD 40 MG TAB PO SCH (08:20)
[2018-02-22] MEDS: RANITIDINE HCL 150 MG TAB PO SCH ×2 (08:20→20:57)
[2018-02-22] MEDS: MULTIVITAMIN TAB PO SCH (08:21)
[2018-02-22] MEDS: CLOPIDOGREL BISULFATE 75 MG TAB PO SCH (08:21)
[2018-02-22] MEDS: LOSARTAN/HCTZ 50-12.5 EA TAB PO SCH (08:21)
[2018-02-22] MEDS: D5W AND 1/2NSS + 20MEQ KCL 1,000 ML IV SCH (08:30)
[2018-02-22] MEDS: TRAMADOL HCL 50 MG TAB PO PRN ×2 (09:14→23:42)
[2018-02-22] MEDS ORDERED: ULT50X PO (09:39)
[2018-02-22] MEDS ORDERED: FRRG PO (09:39)
[2018-02-22] MEDS ORDERED: ACET-24 PO (09:39)
[2018-02-22] MEDS ORDERED: XRL10 PO (09:39)
--- NOTE | 2018-02-22 10:06 | PROGRESS NOTE ---
DATE: 02/22/2018 SUBJECTIVE: This is a 77-year-old white female, postop day 1 from a left total hip replacement. She is doing well. The hip is a little sore. She took some tramadol and doing better. No chest pain or shortness of breath. Not feeling dizzy or lightheaded. OBJECTIVE: VITAL SIGNS: Temperature is 37.9. Vital signs stable. PHYSICAL EXAMINATION: GENERAL: Physical examination shows a pleasant elderly female. She is sitting up in her bedside chair reading the newspaper. She looks entirely comfortable. LUNGS: Clear to auscultation. HEART: Regular rate and rhythm. ABDOMEN: Soft, nontender, nondistended. EXTREMITY EXAMINATION: Grossly neurovascularly intact except as follows: Examination of the left hip and leg reveals the dressing to be clean, dry, and intact. Thigh is soft and supple. Hip is located. She is neurologically intact. LABORATORIES: Hemoglobin 10.0. Hematocrit 30.2. Electrolytes are stable. ASSESSMENT: This is a 77-year-old white female, postop day 1 from a left total hip replacement, doing quite well. 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 No signs of thrombosis. Pain is controlled. She is neurologically intact. PLAN: 1. DVT prophylaxis including thigh-high TEDs, SCDs, and she is back on Plavix. We are also going to use Xarelto for 4 weeks. 2. PT/OT. Weightbear as tolerated. Left total hip protocol. 3. Pain control, doing well with current pain regimen. 4. Disposition: Plan to discharge to home with some home health once adequately recovered.
[2018-02-22] MEDS: SENNA 8.6 MG TAB PO SCH (20:57)
[2018-02-22] MEDS: ATORVASTATIN 10 MG TAB PO SCH (20:57)
[2018-02-22] MEDS: METRONIDAZOLE TOP SCH (20:57)
--- NOTE | 2018-02-22 21:26 | Discharge Instructions ---
Discharge Instructions Date of Service February 22, 2018. Admission Reason for Admission: Left Hip Degenerative Joint Disease Discharge Discharge Diagnosis / Problem: Left Hip Replacement Discharge Goals Goal(s): Decrease discomfort, Improve function, Increase independence, Improve disease control, Therapeutic intervention Activity Recommendations Activity Limitations: per Instructions/Follow-up section (Total Hip Precautions ) Weightbearing Status: Left weightbearing . Instructions / Follow-Up Instructions / Follow-Up ACTIVITY RECOMMENDATIONS: Physical Therapy: * Aggressive physical therapy is not usually needed. You will learn to take care of yourself safely and walk. * Follow the "Hip Precautions Instructions." * In some cases, the social media assistant at the hospital will arrange to have a therapist come to your house for the first couple of weeks to help you learn these skills. * You need to practice on your own or with the help of a family member as needed. * When you learn these skills, most of the therapy can be done on your own. Home Exercise: * You were shown a series of exercises in the hospital. Do these exercises three to four times each day including the exercises you were shown in physical therapy. Walking: * Get up and walk several times each day. For the first four weeks, try not to stand or walk for more than one hour at a time. If you do stand or walk for more than one hour, you will not hurt anything, but your leg will likely swell. * As you feel comfortable, you may change from the walker or crutches to a cane and then to independent walking. MEDICATIONS: New Medicine: * You will likely be taking one or more of these medicines: 1. Tramadol - Take, as directed, when you need it, every four to six hours to control your pain. 2. Iron Sulfate - Take two times each day for the month after surgery to help you replace the blood lost during surgery. 3. Xarelto - Thins your blood to lessen the chance of forming a blood clot. * The most common side effects of pain medicine and iron are nausea and constipation. If nausea or constipation is too much of a problem or if you have any questions about your new medicines or doses, call [facility] at [phone]. We will try to help you manage these issues. VERY IMPORTANT TO READ AND REVIEW" Pain: * The immediate post-operative period after hip replacement surgery is often quite painful. * You are given a prescription for pain medicine. You should take it, as directed, when you need it, especially before physical therapy and before going to bed. Pain that interferes with sleep is very common and can last several months. * You will likely need pain medicine for the first two to four weeks. It will not stop all of the pain. The pain will lessen and as you feel better, you may change to milder pain medicine such as Tylenol. * The most common side effects of pain medicine are nausea and constipation, so don't take more than you need. SPECIAL CARE INSTRUCTIONS: TEDs/Elastic Stockings: * The white elastic stockings help limit swelling and prevent blood clots from forming in your legs. The more you wear them, the more they work. * Wear them for six weeks. Prevention of Infection: * Take antibiotics one hour before any dental cleaning, dental work, urological procedure, gastrointestinal procedure or any invasive surgery in order to prevent your new joint from getting infected. * You may get the antibiotics from the doctor performing the procedure or you may call our office at before and we will call in a prescription to the pharmacy of your choice. Things to Watch For: * Drainage from the incision site that occurs more than one week after your surgery. * Severely increased leg pain or swelling. * Increased redness at the incision site. * Fever above 102 degrees Fahrenheit. * Unusual chest pain or shortness of breath. * Unusual pain or burning with urination. Call [facility] at with any of the above problems or if you have any questions about your medicines or recovery. FOLLOW UP VISIT: Make an appointment to see your doctor for approximately two weeks after surgery for a progress check and staple removal by calling the office at . Current Hospital Diet Patient's current hospital diet: Regular Diet Discharge Diet Recommended Diet: Regular Diet Procedures Procedures Performed: Left Total Hip Arthroplasty Uncemented Pending Studies Studies pending at discharge: no Medical Emergencies . Who to Call and When: Medical Emergencies: If at any time you feel your situation is an emergency, please call [phone] immediately. . Non-Emergent Contact Non-Emergency issues call your: Surgeon . "Provider Documentation" section prepared by Anthony Izquierdo. .
[2018-02-23] MEDS: KETOROLAC TROMETHAMINE 15 MG/ML VIAL IV. SCH (01:56)
[2018-02-23] MEDS: ACETAMINOPHEN 500 MG TAB PO SCH (05:55)
[2018-02-23 06:59] VITALS: BP 103/46; PULSE 75; TEMP 36.9; O2SAT 94
[2018-02-23 07:33] VITALS: O2SAT 94
--- NOTE | 2018-02-23 08:01 | PROGRESS NOTE ---
DATE: 02/23/2018 SUBJECTIVE: A 77-year-old white female postop day 2 from a left uncemented total hip arthroplasty. She is doing well. Pain is controlled. Had a little abdominal discomfort and then passed some gas last night and doing better. No chest pain or shortness of breath. Not feeling dizzy or lightheaded. OBJECTIVE: VITAL SIGNS: Temperature 36.9. Vital signs stable. PHYSICAL EXAMINATION: GENERAL: Reveals a pleasant elderly female. Lying in bed, looks comfortable. EXTREMITIES: Examination of the left hip and leg reveals the incision to be clean, dry and intact. Leg lengths were equal. She is neurologically intact. ASSESSMENT: A 77-year-old white female postop day 2 from left total hip replacement, doing well. Pain is controlled. She is neurologically intact. PLAN: 1. DVT prophylaxis including thigh-high TEDs, SCDs, Xarelto and also on Plavix due to her history of PE in the past. 2. PT/OT. Weight bear as tolerated. Left total hip protocol. 3. Pain control, doing well with current pain regimen. 4. Disposition: Plan to discharge to home with home health later today.
[2018-02-23] MEDS: RIVAROXABAN 10 MG TAB PO SCH (08:58)
[2018-02-23] MEDS: LOSARTAN/HCTZ 50-12.5 EA TAB PO SCH (08:58)
[2018-02-23] MEDS: FERROUS GLUCONATE 324 MG TAB PO SCH (08:59)
[2018-02-23] MEDS: CLOPIDOGREL BISULFATE 75 MG TAB PO SCH (08:59)
[2018-02-23] MEDS: MULTIVITAMIN TAB PO SCH (08:59)
[2018-02-23] MEDS: DOCUSATE SODIUM 100 MG CAP PO SCH (08:59)
[2018-02-23] MEDS: PANTOprazole SOD 40 MG TAB PO SCH (08:59)
[2018-02-23] MEDS: RANITIDINE HCL 150 MG TAB PO SCH (09:00)
[2018-02-23 09:50] VITALS: BP 103/46; PULSE 75; TEMP 36.9; O2SAT 94
== END 2018-02-23 11:06 | disposition home or self-care (01) | DRG 470 ==
LOC: C.ACU 05:07 → C.3E 06:35 → ENRESERV 09:13
PROVIDERS: ADMIT Orthopaedic Surgery Sports Medicine; ATTEND Orthopaedic Surgery Sports Medicine
PROC: 0SRB04A Replacement of Left Hip Joint with Ceramic on Polyethylene Synthetic Substitute, Uncemented, Open Approach (ICD-10-PCS; principal; 2018-02-21 07:00)
DX: M16.12 Unilateral primary osteoarthritis, left hip (principal); I67.82 Cerebral ischemia; M25.452 Effusion, left hip; M65.9 Synovitis and tenosynovitis, unspecified; F01.50 Vascular dementia, unspecified severity, without behavioral disturbance, psychotic disturbance, mood disturbance, and anxiety; J45.909 Unspecified asthma, uncomplicated; I10 Essential (primary) hypertension; E78.00 Pure hypercholesterolemia, unspecified; K21.9 Gastro-esophageal reflux disease without esophagitis; G62.9 Polyneuropathy, unspecified; M54.9 Dorsalgia, unspecified; M41.9 Scoliosis, unspecified; F41.9 Anxiety disorder, unspecified; Z96.641 Presence of right artificial hip joint; Z86.73 Personal history of transient ischemic attack (TIA), and cerebral infarction without residual deficits; Z86.711 Personal history of pulmonary embolism; Z91.040 Latex allergy status; Z91.041 Radiographic dye allergy status; Z79.02 Long term (current) use of antithrombotics/antiplatelets; Z79.1 Long term (current) use of non-steroidal anti-inflammatories (NSAID); Z79.2 Long term (current) use of antibiotics; Z79.51 Long term (current) use of inhaled steroids; Z79.52 Long term (current) use of systemic steroids; Z79.899 Other long term (current) drug therapy

== ENCOUNTER 2021-12-11 12:33 | Observation (INO) ==
[2021-12-11] MEDS ORDERED: ASPIRIN CHEW 324 MG PO STA (13:01)
[2021-12-11 13:12] LABS: Basophils # (auto) 0.02 K/uL (0-0.2); Basophils % (auto) 0.2 %; Eosinophils % (auto) 0.9 %; Hematocrit (blood only) 44.4 % (37-47); Hemoglobin 14.8 g/dL (12.0-16.0); Immature Granulocytes # (auto) 0.02 K/uL (0.00-0.02); Immature Granulocytes % (auto) 0.2 %; Lymphocytes # (auto) 0.98 K/uL (1.2-3.4); Lymphocytes % (auto) 8.6 %; Mean Corpuscular Hemoglobin 30.6 pg (25-34); Mean Corpuscular Hgb Conc 33.3 g/dL (32-36); Mean Corpuscular Volume 91.9 fL (80-100); Mean Platelet Volume 10.8 fL (7.4-10.4); Monocytes # (auto) 0.55 K/uL (0.11-0.59); Monocytes % (auto) 4.8 %; Neutrophils # (auto) 9.73 K/uL (1.4-6.5); Neutrophils % (auto) 85.3 %; Platelet Count 206 K/uL (130-400); RDW Coefficient of Variation 13.6 % (11.5-14.5); Red Blood Count 4.83 M/uL (4.2-5.4)
--- NOTE | 2021-12-11 13:12 | XRay Report ---
SINGLE VIEW CHEST CLINICAL HISTORY: Atypical chest pain FINDINGS: An AP, portable, upright chest radiograph is compared to study dated 11/24/2018. The cardiome diastinal silhouette is top normal for projection. Enlargement of the central pulmonary arteries is u nchanged and suggests pulmonary artery hypertension. The lungs and pleural spaces are clear. No pneum othorax is seen. The skeletal structures are osteopenic. The bony thorax is grossly intact. IMPRESSION: No active disease in the chest. ACT 112: Negative or not required by law. Electronically signed by: Alex Carranza M.D. 12/11/2021 1:11 PM
[2021-12-11 13:24] LABS: Troponin I < 0.03 ng/ml (0-0.04)
--- NOTE | 2021-12-11 13:31 | Emergency Department Note ---
History of Present Illness General Chief Complaint: Cardiac Assessment Stated Complaint: LT SIDE CHEST PAIN, RADIATES INTO SHOULDER Time Seen by Provider: 12/11/21 13:00 History of Present Illness Provider Complaint: chest pain Onset (ago): hour(s) 1 Duration: now resolved Onset: during rest Pain Location: left chest Pain Radiation: LUE Severity: moderate Maximum Pain Intensity: 5 Current Pain Intensity: 0 Quality: + sharp and + dull Relieved By: + nothing Exacerbated By: + nothing Context: no recent illness, no recent surgery, no recent immobilization, no recent travel or no trauma/injury Associated symptoms: no nausea, no vomiting, no diaphoresis, no dyspnea, no syncope, no palpitations, no fever, no cough or no leg swelling Home Medications Medication Instructions Recorded Confirmed Type beclomethasone dipropionate 40 2 puff INHALATION QAM 10/14/18 12/11/21 History mcg/actuation HFA breath activated aerosol metronidazole 0.75 % topical cream 1 applic TOPICAL BID 10/14/18 12/11/21 History estradiol 1 g VAGINAL 2XWK #42.5 gm 02/11/20 12/11/21 Rx acetaminophen 500 mg tablet 500 mg PO BID PRN tab 06/17/20 12/11/21 History (Tylenol Extra Strength) albuterol sulfate 90 mcg/actuation 2 puff INHALATION .COMPLEX PRN 07/01/20 12/11/21 Rx aerosol inhaler (Ventolin HFA) #8.5 g fluticasone propionate 50 2 spray INTRANASAL DAILY #15.8 ml 10/02/20 12/11/21 Rx mcg/actuation nasal spray,suspension clopidogrel 75 mg tablet 75 mg PO DAILY #90 tab 06/15/21 12/11/21 Rx famotidine 40 mg tablet 40 mg PO BID #60 tab 07/01/21 12/11/21 Rx atorvastatin 10 mg tablet 10 mg PO 3XWK #90 tab 07/13/21 12/11/21 Rx memantine 10 mg tablet 10 mg PO BID tab 09/24/21 12/11/21 History losartan 100 mg tablet 100 mg PO DAILY #90 tab 11/26/21 12/11/21 Rx methocarbamol 500 mg tablet 500 mg PO BID PRN #60 tab 12/04/21 12/11/21 Rx prednisone 5 mg tablet 5 mg PO DAILY #30 tab 12/09/21 12/11/21 Rx Allergies Allergy/AdvReac Type Severity Reaction Status Date / Time Iodinated Contrast Media Allergy Intermediate hives Verified 12/11/21 14:35 latex Allergy Unknown SKIN TEAR Verified 12/11/21 14:35 WHERE ADHESIVE WAS. PAPER TAPE OK promethazine AdvReac Intermediate DELIRIUM Verified 12/11/21 14:35 Past Med/Surg History Medical History (Updated 12/11/21 @ 16:28 by Martin Jackson) Anxiety Asthma INHALER PRN Carotid artery stenosis Chronic cerebral ischemia GERD (gastroesophageal reflux disease) Hyperlipidemia Hypertension Memory loss of unknown cause ON MEMANTINE ? D/T TIA---FOLLOWS W DR. 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 History of carpal tunnel release History of cataract surgery History of colonoscopy History of esophagogastroduodenoscopy (EGD) History of tonsillectomy and adenoidectomy History of tooth extraction WISDOM TEETH History of total left hip replacement History of total right hip replacement Status post laminectomy Family History Mother Family history of diabetes mellitus Myocardial infarction Family/Other Family history of diabetes mellitus MATERNAL AUNTS/UNCLES (TOTAL OF 3) Father Prostate cancer Cancer liver Brother Lung disease pulmonary fibrosis Other No family history of adverse response to anesthesia Denies family history of Ovarian cancer Breast cancer Colorectal cancer Social History Smoking Status: Former smoker Tobacco Type: Cigarettes Age Started Using Tobacco: 20; Age Quit Using Tobacco: 53; packs per day: 1; Second Hand Exposure: No (parents smoked); Hx Alcohol Use: Yes Alcohol type: wine Alcohol Intake Frequency: Monthly or Less Hx Substance Use: No Preferred Language: Barbadian Communication Ability: Effective Visual Impairment: Limited Hearing Ability: Normal 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 Beliefs That Will Affect Care: None marital status: Current Living Situation: Spouse current occupational status: retired Feels Safe at Home: Yes Childhood Exposure to Second-Hand Smoke: Yes caffeine: Yes Dental Care, Regularly: Yes Physical Activity Frequency: Does not Exercise Seatbelt Use: always Sunscreen Use: Yes Do you think of yourself as: straight/heterosexual Assistive Devices: Glasses Review of Systems A total of 10 systems reviewed and were otherwise negative Physical Exam Vital Signs Vital Signs - 24 hr 12/11/21 12:34 12/11/21 12:56 12/11/21 13:21 Pulse Rate 74 92 H Pulse Rate [Apical] 60 Pulse Rhythm Regular Regular Pulse Rhythm [Apical] Regular Pulse Strength Normal Pulse Strength [Apical] Normal Respiratory Rate 20 18 18 Respiratory Effort / Characteristics Non-Labored Spontaneous Non-Labored Respiratory Depth Normal Normal Respiratory Pattern Regular Regular Blood Pressure 188/76 H Blood Pressure [Left Arm] 132/63 Blood Pressure Mean 113 Blood Pressure Mean [Left Arm] 86 Blood Pressure Position Sitting Blood Pressure Position [Left Arm] Lying Pulse Oximetry 96 95 95 Oxygen Delivery Method Room Air Room Air Room Air Sepsis Recent Fever Within 48 Hours No Sepsis New/Unexplained Change in Mental Status No Sepsis Action Taken by Nursing No Action Required 12/11/21 14:51 Pulse Rate Pulse Rate [Apical] 64 Pulse Rhythm Pulse Rhythm [Apical] Regular Pulse Strength Pulse Strength [Apical] Normal Respiratory Rate 18 Respiratory Effort / Characteristics Non-Labored Respiratory Depth Normal Respiratory Pattern Regular Blood Pressure Blood Pressure [Left Arm] 141/74 H Blood Pressure Mean Blood Pressure Mean [Left Arm] 96 Blood Pressure Position Blood Pressure Position [Left Arm] Lying Pulse Oximetry 98 Oxygen Delivery Method Room Air Sepsis Recent Fever Within 48 Hours Sepsis New/Unexplained Change in Mental Status Sepsis Action Taken by Nursing Physical Exam GENERAL: She is oriented to person, place, and time. She appears well-developed and well-nourished. She does not appear distressed. HENT: Exam performed. -Head: Normocephalic and atraumatic. -Right Ear: External ear normal. No mastoid tenderness. -Left Ear: External ear normal. No mastoid tenderness. -Mouth/Throat: The oropharynx is clear and moist. No trismus in the jaw. No dental abscesses or uvula swelling. No oropharyngeal exudate or tonsillar abscesses. EYES: Conjunctivae and EOM are normal. Pupils are equal, round, and reactive to light. Right eye exhibits no discharge. Left eye exhibits no discharge. No scleral icterus. NECK: Normal range of motion. Neck supple. No JVD present. No spinous process tenderness present. No carotid bruit present. No rigidity. No tracheal deviation and normal range of motion present. No Brudzinski's sign and no Kernig's sign noted. CV: Normal rate, regular rhythm, normal heart sounds and intact distal pulses. There is no peripheral edema. Palpable radial pulses bue. PULM/CHEST: Effort normal and breath sounds normal. No respiratory distress. No stridor. She has no wheezes. She has no rales. -Chest Wall: She exhibits no tenderness. ABD: The abdomen is soft. Bowel sounds are normal. She has no distension. No mass is present. There is no tenderness. There is no rebound, no guarding, no Gardner's sign and no tenderness at McBurney's point. Rovsig negative MUSC/SKEL: Normal range of motion. There is no peripheral edema, tenderness or deformity. LYMPH: No cervical adenopathy. NEURO: She is alert and oriented to person, place, and time. She has normal strength. No cranial nerve deficit or sensory deficit. Coordination and gait normal. GCS eye subscore is 4. GCS verbal subscore is 5. GCS motor subscore is 6. Cerebellar tests wnl. SKIN: Skin is warm and dry. She is not diaphoretic. PSYCH: She has a normal mood and affect. Behavior is normal. Judgment and thought content normal. Course Course 1300: The patient was evaluated in room B4. A complete history and physical exam was performed Cardiac monitoring: An order was placed for continuous cardiac monitoring. The monitor shows a rate of 90 with sinus rhythm 1515: Vital signs stable. Labs and imaging within normal limits. Patient observation for chest pain rule out ACS and family agreed to this. Dr.Tussey Dale hospitalist service will be contacted. Administered Medications Discontinued Medications Aspirin (Aspirin Chew 324 Mg) 324 mg PO NOW STA Stop: 12/11/21 13:02 Last Admin: 12/11/21 13:17 Dose: 324 mg Documented by: [id number] Medical Decision Making Laboratory Data Result diagrams: 12/11/21 12:52 12/11/21 12:52 Labs: Lab Results 12/11/21 12/11/21 Range/Units 12:52 12:52 WBC 11.40 H (4.8-10.8) K/uL RBC 4.83 (4.2-5.4) M/uL Hgb 14.8 (12.0-16.0) g/dL Hct 44.4 (37-47) % MCV 91.9 (80-100) fL MCH 30.6 (25-34) pg MCHC 33.3 (32-36) g/dL RDW Std Deviation 46.0 (36.4-46.3) fL RDW Coeff of Yadira 13.6 (11.5-14.5) % Plt Count 206 (130-400) K/uL MPV 10.8 H (7.4-10.4) fL Immature Gran % (Auto) 0.2 % Neut % (Auto) 85.3 % Lymph % (Auto) 8.6 % [place] % (Auto) 4.8 % Eos % (Auto) 0.9 % Baso % (Auto) 0.2 % Neut # (Auto) 9.73 H (1.4-6.5) K/uL Lymph # (Auto) 0.98 L (1.2-3.4) K/uL [place] # (Auto) 0.55 (0.11-0.59) K/uL Eos # (Auto) 0.10 (0-0.5) K/uL Baso # (Auto) 0.02 (0-0.2) K/uL Immature Gran # (Auto) 0.02 (0.00-0.02) K/uL Sodium 135 L (136-145) mmol/L Potassium 3.9 (3.5-5.1) mmol/L Chloride 99 (98-107) mmol/L Carbon Dioxide 26 (21-32) mmol/L Anion Gap 10 (3-11) BUN 15 (6-23) mg/dl Creatinine 1.01 (0.6-1.2) mg/dl Est Cr Clr Drug Dosing Not Reportable Est GFR ( Amer) 59.6 ml/min Est GFR (Non-Af Amer) 51.4 ml/min BUN/Creatinine Ratio 14.9 (10-20) Glucose 107 H (70-99(Fasting)) mg/dl Calcium 9.5 (8.5-10.1) mg/dl Troponin I < 0.03 (0-0.04) ng/ml Lipase 35 (11-82) U/L Imaging Data Chest x-ray: Radiologist's impression: Chest X-Ray 12/11/21 13:01 SINGLE VIEW CHEST CLINICAL HISTORY: Atypical chest pain FINDINGS: An AP, portable, upright chest radiograph is compared to study dated 11/24/2018. The cardiomediastinal silhouette is top normal for projection. Enlar gement of the central pulmonary arteries is unchanged and suggests pulmonary artery hypertension. The lungs and pleural spaces are clear. No pneumothorax is seen. The skeletal structures are osteopenic. The bony thorax is grossly intact. IMPRESSION: No active disease in the chest. ACT 112: Negative or not required by law. Electronically signed by: Alex Carranza M.D. 12/11/2021 1:11 PM ECG Data Additional Comments: EKG #1 at 1245: Sinus rhythm with rate of 69. CA QRS and QTc intervals within normal limits. No ST elevation or ST depression. EKG #2 at 1333: Sinus rhythm with rate of 63. CA QRS and QTc intervals within normal limits. No ST elevation or ST depression. MDM Narrative Vital signs stable. Labs and imaging within normal limits. Patient observation for chest pain rule out ACS and family agreed to this. Dr.Tussey Dale hospitalist service will be contacted. Impression & Plan Chest pain Discharge Plan Visit Data Chief Complaint: Cardiac Assessment Stated Complaint: LT SIDE CHEST PAIN, RADIATES INTO SHOULDER ED Provider: Martin Jackson Discharge Problem: Chest pain Patient Disposition: Being Evaluated by Hospitalist Forms Stand Alone Forms: My [facility] [employer] Prescriptions Prescriptions: No Action estradiol 0.01 % (0.1 mg/gram) cream 1 g VAGINAL 2XWK Qty: 42.5 RF: 3 fluticasone propionate 50 mcg/actuation spray,suspension 2 spray Intranasal DAILY Qty: 15.8 RF: 11 clopidogrel 75 mg tablet 75 mg PO DAILY Qty: 90 RF: 1 famotidine 40 mg tablet 40 mg PO BID Qty: 60 RF: 11 atorvastatin 10 mg tablet 10 mg PO 3XWK Qty: 90 RF: 3 losartan 100 mg tablet 100 mg PO DAILY Qty: 90 RF: 3 prednisone 5 mg tablet 5 mg PO DAILY Qty: 30 RF: 5 albuterol sulfate [Ventolin HFA] 90 mcg/actuation HFA aerosol inhaler 2 puff INHALATION .COMPLEX PRN (Reason: shortness of breath) Qty: 8.5 RF: 3 methocarbamol 500 mg tablet 500 mg PO BID PRN (Reason: spasms) Qty: 60 RF: 1 memantine 10 mg tablet 10 mg PO BID RF: 0 metronidazole 0.75 % cream 1 applic topical BID RF: 0 beclomethasone dipropionate 40 mcg/actuation HFA aerosol breath activated 2 puff Inhalation QAM RF: 0 acetaminophen [Tylenol Extra Strength] 500 mg tablet 500 mg PO BID PRN (Reason: Pain) RF: 0 Referrals Referrals: Jess Hirsch MD [Primary Care Provider] -
[2021-12-11 13:36] LABS: Anion Gap 10 (3-11); BUN Creatinine Ratio 14.9 (10-20); Blood Urea Nitrogen 15 mg/dl (6-23); Calcium 9.5 mg/dl (8.5-10.1); Carbon Dioxide 26 mmol/L (21-32); Chloride 99 mmol/L (98-107); Est GFR (African American) 59.6 ml/min; Est GFR (Non-African American) 51.4 ml/min; Glucose 107 mg/dl (70-99(Fasting)); Lipase 35 U/L (11-82); Sodium 135 mmol/L (136-145)
[2021-12-11 13:39] LABS: Potassium 3.9 mmol/L (3.5-5.1)
--- NOTE | 2021-12-11 14:38 | Electrocardiogram Report ---
Test Reason : Blood Pressure : / mmHG Vent. Rate : 069 BPM Atrial Rate : 069 BPM P-R Int : 158 ms QRS Dur : 084 ms QT Int : 380 ms P-R-T Axes : 057 001 062 degrees QTc Int : 407 ms Normal sinus rhythm Possible Left atrial enlargement Borderline ECG When compared with ECG of 14-OCT-2018 10:35, Premature ventricular complexes are no longer Present Confirmed by Omer Obando ([id number]) on 12/11/2021 2:38:22 PM Referred By: Confirmed By:Costa Obando
--- NOTE | 2021-12-11 15:39 | History & Physical Report ---
Date of Service December 11, 2021 Assessment & Plan (1) Chest pain: Plan: Atypical chest pain left-sided radiating to the left shoulder that was sharp in nature that came on at rest and went away at rest. Does have risk factors for CAD of age and hypertension, remote history of smoking Initial ECG with nonspecific T wave changes in V1 V2, troponin negative Her vitals are stable and her pulse ox 97% on room air. She does have a remote history of a PE postoperatively from a hip replacement, but I do not suspect PE at this time and she does not need work-up for this Suspect this is most likely related to GI process given recent start on daily prednisone-could be esophageal spasm -Bring in on observation to medical floor with telemetry -Trend serial troponin -Trend serial ECG -Check echocardiogram for wall motion abnormalities -Tomorrow is Tuesday and she does not need an inpatient stress test, but could have stress test as an outpatient arranged after discharge -Start Protonix 40 mg p.o. twice daily as she would like to continue on the daily prednisone which is really helping her chronic lower back pain -Check lipid panel in the morning and consider increasing dose and frequency of atorvastatin if uncontrolled -Continue home Plavix (2) Benign hypertension: Plan: Blood pressures are controlled typically but mildly elevated here likely secondary to anxiety but also recently started on prednisone Continue home losartan Consider addition of thiazide diuretic or beta-gilda (3) GERD (gastroesophageal reflux disease): Plan: Continue home famotidine Adding Protonix as above (4) Carotid artery stenosis: Plan: Status post right carotid endarterectomy many years ago Follows with vascular surgery, stable on the right, 50% stenosis on the left Continue Plavix and statin (5) DJD (degenerative joint disease), lumbar: Plan: Followed by neurosurgery at [facility] Had lumbar surgery in 2020 but no longer wants to pursue any further surgical measures Pain control as needed with Tylenol, Robaxin Now recently started on prednisone 5 mg daily (6) Dyslipidemia: Plan: Continue atorvastatin Checking lipid panel (7) Generalized osteoarthritis of multiple sites: Plan: Continue Tylenol as needed (8) Mild cognitive impairment: Plan: Supportive care Continue home memantine Follows with neurology (9) Postmenopausal atrophic vaginitis: Plan: Hold home estradiol (10) Asthma: Plan: No acute issues Continue albuterol as needed and daily maintenance inhaler (11) Transient ischemic attack (TIA): Plan: History of such Continue Plavix, statin Plan: DVT prophylaxis-Lovenox SQ Disposition-bring in on observation to medical floor telemetry, expect discharge tomorrow if work-up for cardiac issues is negative DNR/DNI as per discussion with patient with her and daughter present at the bedside History of Present Illness Chief Complaint: Chest pain Primary Care Provider: Jess Hirsch MD This patient is an 81-year-old female with history of HTN, mild cognitive impairment, PE, hyperlipidemia, PREETI, lumbar spine pain and spinal stenosis on chronic prednisone recently started 1 week ago, GERD, and asthma, who presents to the ER with left-sided chest pain radiating into the left shoulder that resolved on its own after taking aspirin and Tums prior to arrival. She reports she was getting ready to go somewhere with her and had acute onset of left-sided pain that was very sharp in nature and radiating to the shoulder. It was not associated with shortness of breath, diaphoresis, nausea, or lightheadedness. It was a 6-7/10 in severity. She initially took 2 Tums given to her by her and this did not do much for the pain. She then took a baby aspirin and he brought her to the hospital. In the ER her chest pain resol lakia after 10 minutes for a total sustained time of 90 minutes of pain. She has never had anything like this in the past. She does report that she recently started on low-dose prednisone a week ago for her chronic severe lower back pain as she has now decided to defer further surgical management. The prednisone is helping tremendously with her pain and she wants to stay on it. Her work-up in the ER showed troponin and ECG both normal. Laboratory work-up otherwise unremarkable. Chest x-ray negative for acute disease. She will be admitted for work-up for chest pain. Allergies Allergy/AdvReac Type Severity Reaction Status Date / Time Iodinated Contrast Media Allergy Intermediate hives Verified 12/11/21 14:35 latex Allergy Unknown SKIN TEAR Verified 12/11/21 14:35 WHERE ADHESIVE WAS. PAPER TAPE OK promethazine AdvReac Intermediate DELIRIUM Verified 12/11/21 14:35 Home Medications Medication Instructions Recorded Confirmed Type beclomethasone dipropionate 40 2 puff INHALATION QAM 10/14/18 12/11/21 History mcg/actuation HFA breath activated aerosol metronidazole 0.75 % topical cream 1 applic TOPICAL BID 10/14/18 12/11/21 History estradiol 1 g VAGINAL 2XWK #42.5 gm 02/11/20 12/11/21 Rx acetaminophen 500 mg tablet 500 mg PO BID PRN tab 06/17/20 12/11/21 History (Tylenol Extra Strength) albuterol sulfate 90 mcg/actuation 2 puff INHALATION .COMPLEX PRN 07/01/20 12/11/21 Rx aerosol inhaler (Ventolin HFA) #8.5 g fluticasone propionate 50 2 spray INTRANASAL DAILY #15.8 ml 10/02/20 12/11/21 Rx mcg/actuation nasal spray,suspension clopidogrel 75 mg tablet 75 mg PO DAILY #90 tab 06/15/21 12/11/21 Rx famotidine 40 mg tablet 40 mg PO BID #60 tab 07/01/21 12/11/21 Rx atorvastatin 10 mg tablet 10 mg PO 3XWK #90 tab 07/13/21 12/11/21 Rx memantine 10 mg tablet 10 mg PO BID tab 09/24/21 12/11/21 History losartan 100 mg tablet 100 mg PO DAILY #90 tab 11/26/21 12/11/21 Rx methocarbamol 500 mg tablet 500 mg PO BID PRN #60 tab 12/04/21 12/11/21 Rx prednisone 5 mg tablet 5 mg PO DAILY #30 tab 12/09/21 12/11/21 Rx Past Med/Surg History Medical History (Updated 12/11/21 @ 16:28 by Martin Jackson) Anxiety Asthma INHALER PRN Carotid artery stenosis Chronic cerebral ischemia GERD (gastroesophageal reflux disease) Hyperlipidemia Hypertension Memory loss of unknown cause ON MEMANTINE ? D/T TIA---FOLLOWS W DR. 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 History of carpal tunnel release History of cataract surgery History of colonoscopy History of esophagogastroduodenoscopy (EGD) History of tonsillectomy and adenoidectomy History of tooth extraction WISDOM TEETH History of total left hip replacement History of total right hip replacement Status post laminectomy Family History Mother Family history of diabetes mellitus Myocardial infarction Family/Other Family history of diabetes mellitus MATERNAL AUNTS/UNCLES (TOTAL OF 3) Father Prostate cancer Cancer liver Brother Lung disease pulmonary fibrosis Other No family history of adverse response to anesthesia Denies family history of Ovarian cancer Breast cancer Colorectal cancer Social History Smoking Status: Former smoker Tobacco Type: Cigarettes Age Started Using Tobacco: 20; Age Quit Using Tobacco: 53; packs per day: 1; Second Hand Exposure: No (parents smoked); Hx Alcohol Use: Yes Alcohol type: wine Alcohol Intake Frequency: Monthly or Less Hx Substance Use: No Preferred Language: Sudanese Communication Ability: Effective Visual Impairment: Limited Hearing Ability: Normal Php Software Engineer Required: No Beliefs That Will Affect Care: None marital status: Current Living Situation: Spouse current occupational status: retired Feels Safe at Home: Yes Childhood Exposure to Second-Hand Smoke: Yes caffeine: Yes Dental Care, Regularly: Yes Physical Activity Frequency: Does not Exercise Seatbelt Use: always Sunscreen Use: Yes Do you think of yourself as: straight/heterosexual Assistive Devices: Glasses Review of Systems Review of Systems: All systems reviewed & are unremarkable except as noted in HPI & below Physical Exam Constitutional: WD/WN, vitals as above Eyes: PERRL, conjunctivae normal, anicteric sclerae ENMT: external ear and nose normal, oropharynx normal Neck: trachea midline, no thyromegaly Respiratory: normal respiratory effort, lungs clear to auscultation Cardiovascular: RRR, no murmur, no edema Vessels: no JVD and no carotid bruit Chest (Breasts): Chest: normal inspection of chest Additional Comments: No tenderness palpation over chest wall Gastrointestinal (Abdomen): normal bowel sounds, soft, nontender, no hepatosplenomegaly Musculoskeletal: Extremities: extremities normal to inspection; no cyanosis and no clubbing Skin: no rashes, warm and dry Neurologic: moves all extremities and awake; no focal motor deficits Psychiatric: A+Ox3, euthymic affect Lymphatic: no lymphedema Results & Data Results & Data ([facility]) Vital Signs (Past 12 Hours) Vital Signs Pulse Pulse Resp BP BP Pulse Ox 12/11/21 14:51 64 18 141/74 H 98 12/11/21 13:21 92 H 18 95 12/11/21 12:56 60 18 132/63 95 12/11/21 12:34 74 20 188/76 H 96 Laboratory Results 12/11/21 12/11/21 Range/Units 12:52 12:52 WBC 11.40 H (4.8-10.8) K/uL RBC 4.83 (4.2-5.4) M/uL Hgb 14.8 (12.0-16.0) g/dL Hct 44.4 (37-47) % MCV 91.9 (80-100) fL MCH 30.6 (25-34) pg MCHC 33.3 (32-36) g/dL RDW Std Deviation 46.0 (36.4-46.3) fL RDW Coeff of Yadira 13.6 (11.5-14.5) % Plt Count 206 (130-400) K/uL MPV 10.8 H (7.4-10.4) fL Immature Gran % (Auto) 0.2 % Neut % (Auto) 85.3 % Lymph % (Auto) 8.6 % [place] % (Auto) 4.8 % Eos % (Auto) 0.9 % Baso % (Auto) 0.2 % Neut # (Auto) 9.73 H (1.4-6.5) K/uL Lymph # (Auto) 0.98 L (1.2-3.4) K/uL [place] # (Auto) 0.55 (0.11-0.59) K/uL Eos # (Auto) 0.10 (0-0.5) K/uL Baso # (Auto) 0.02 (0-0.2) K/uL Immature Gran # (Auto) 0.02 (0.00-0.02) K/uL Sodium 135 L (136-145) mmol/L Potassium 3.9 (3.5-5.1) mmol/L Chloride 99 (98-107) mmol/L Carbon Dioxide 26 (21-32) mmol/L Anion Gap 10 (3-11) BUN 15 (6-23) mg/dl Creatinine 1.01 (0.6-1.2) mg/dl Est Cr Clr Drug Dosing Not Reportable Est GFR ( Amer) 59.6 ml/min Est GFR (Non-Af Amer) 51.4 ml/min BUN/Creatinine Ratio 14.9 (10-20) Glucose 107 H (70-99(Fasting)) mg/dl Calcium 9.5 (8.5-10.1) mg/dl Troponin I < 0.03 (0-0.04) ng/ml Lipase 35 (11-82) U/L Diagnostic Findings Chest X-Ray 12/11/21 13:01 SINGLE VIEW CHEST CLINICAL HISTORY: Atypical chest pain FINDINGS: An AP, portable, upright chest radiograph is compared to study dated 11/24/2018. The cardiomediastinal silhouette is top normal for projection. Enlargement of the central pulmonary arteries is unchanged and suggests pulmonary artery hypertension. The lungs and pleural spaces are clear. No pneumothorax is seen. The skeletal structures are osteopenic. The bony thorax is grossly intact. IMPRESSION: No active disease in the chest. ACT 112: Negative or not required by law. Electronically signed by: Alex Carranza M.D. 12/11/2021 1:11 PM ECG Additional Comments: ECG on 12/11/2021 at 1245 with normal sinus rhythm, rate 69, T wave inversions in V1 V2, with the T wave inversion in V2 change from previous ECG on 12/11/2021 at 1333 with normal sinus rhythm, rate 63, T wave flattening in V2 and V3 Code Status & VTE Plan Code Status DNR/DNI VTE Prophylaxis Plan VTE Prophylaxis will be ordered: Yes PG Care Time/CCT Total # of Minutes Spent Total Time Spent with Patient: Total time spent is greater than 50% in coordination of care (as documented) at patient's floor/unit and/or counseling patient: Coding Level of Care Code INT OBSERVATION CARE 70M LVL 3 Diagnoses Asthma J45.909 Benign hypertension I10 Carotid artery stenosis I65.29 DJD (degenerative joint disease), lumbar M47.816 Dyslipidemia E78.5 Generalized osteoarthritis of multiple sites M15.9 Mild cognitive impairment G31.84 Postmenopausal atrophic vaginitis N95.2 Transient ischemic attack (TIA) G45.9 Chest pain R07.9 GERD (gastroesophageal reflux disease) K21.9
[2021-12-11] MEDS ORDERED: PANTOprazole 40 MG TAB PO STA (16:41)
--- NOTE | 2021-12-11 17:30 | Electrocardiogram Report ---
Test Reason : Blood Pressure : / mmHG Vent. Rate : 063 BPM Atrial Rate : 063 BPM P-R Int : 170 ms QRS Dur : 086 ms QT Int : 396 ms P-R-T Axes : 055 -04 031 degrees QTc Int : 405 ms Normal sinus rhythm Possible Left atrial enlargement Borderline ECG When compared with ECG of 11-DEC-2021 12:45, No significant change was found Confirmed by Omer Obando ([id number]) on 12/11/2021 5:30:11 PM Referred By: REFERRED SELF Confirmed By:Costa Obando
[2021-12-11] MEDS ORDERED: METHOCARBAMOL 500 MG TABLET PO PRN (19:56)
[2021-12-11] MEDS ORDERED: ONDANSETRON INJ 2 MG/ML 2 ML VIAL IV PRN (19:56)
[2021-12-11] MEDS ORDERED: ACETAMINOPHEN 500 MG TAB PO PRN (19:56)
[2021-12-11] MEDS ORDERED: NITROGLYCERIN SL 0.4 MG/TAB TAB SL PRN (19:56)
[2021-12-11] MEDS ORDERED: ALBUTEROL HFA 8 GM INHALER INH PRN (19:56)
[2021-12-11] MEDS ORDERED: ATORVASTATIN 10 MG TAB PO SCH (21:00)
[2021-12-11] MEDS: ENOXAPARIN INJ 40 MG/0.4 ML SYR SQ SCH (21:19)
[2021-12-11] MEDS: FAMOTIDINE 40 MG TABLET PO SCH (21:20)
[2021-12-11] MEDS: MEMANTINE HCL 10 MG TAB PO SCH (21:21)
[2021-12-12] MEDS: MoRPHine SULFATE 2 MG/ML CARP IV PRN ×3 (01:18→08:28)
[2021-12-12 06:24] LABS: Basophils # (auto) 0.04 K/uL (0-0.2); Basophils % (auto) 0.6 %; Eosinophils # (auto) 0.28 K/uL (0-0.5); Eosinophils % (auto) 4.3 %; Hematocrit (blood only) 39.4 % (37-47); Hemoglobin 13.2 g/dL (12.0-16.0); Immature Granulocytes # (auto) 0.01 K/uL (0.00-0.02); Immature Granulocytes % (auto) 0.2 %; Lymphocytes # (auto) 1.77 K/uL (1.2-3.4); Lymphocytes % (auto) 27.1 %; Mean Corpuscular Hemoglobin 30.6 pg (25-34); Mean Corpuscular Hgb Conc 33.5 g/dL (32-36); Mean Corpuscular Volume 91.2 fL (80-100); Mean Platelet Volume 10.6 fL (7.4-10.4); Monocytes % (auto) 9.2 %; Neutrophils # (auto) 3.84 K/uL (1.4-6.5); Neutrophils % (auto) 58.6 %; Platelet Count 169 K/uL (130-400); RDW Coefficient of Variation 13.4 % (11.5-14.5); RDW Standard Deviation 44.8 fL (36.4-46.3); Red Blood Count 4.32 M/uL (4.2-5.4); White Blood Count 6.54 K/uL (4.8-10.8)
[2021-12-12 06:53] LABS: BUN Creatinine Ratio 18.5 (10-20); Calcium 8.8 mg/dl (8.5-10.1); Chol HDL Ratio 4.8 (0-5); Creatinine Clr Calc Pharmacy 46.4 ml/min; Est GFR (African American) 77.8 ml/min; Est GFR (Non-African American) 67.2 ml/min; Magnesium 1.8 mg/dl (1.7-2.4)
[2021-12-12] MEDS: MEMANTINE HCL 10 MG TAB PO SCH ×2 (08:36→20:18)
[2021-12-12] MEDS: PANTOprazole 40 MG TAB PO SCH ×2 (08:36→20:18)
[2021-12-12] MEDS: predniSONE 5 MG TAB PO SCH ×2 (08:36→10:51)
[2021-12-12] MEDS: LOSARTAN POTASSIUM 50 MG TAB PO SCH (08:36)
[2021-12-12] MEDS: FAMOTIDINE 40 MG TABLET PO SCH ×2 (08:36→20:18)
[2021-12-12] MEDS: CLOPIDOGREL BISULFATE 75 MG TAB PO SCH (08:36)
[2021-12-12] MEDS: FLUTICASONE PROPIONATE NA SPR 16 GM BTL NAE SCH (08:37)
[2021-12-12] MEDS: FLUTICASONE FUROATE 100MCG 14 PUFFS/INHALER INH SCH (08:37)
--- NOTE | 2021-12-12 10:33 | Electrocardiogram Report ---
Test Reason : Blood Pressure : / mmHG Vent. Rate : 067 BPM Atrial Rate : 067 BPM P-R Int : 176 ms QRS Dur : 090 ms QT Int : 392 ms P-R-T Axes : 056 -01 041 degrees QTc Int : 414 ms Normal sinus rhythm Normal ECG When compared with ECG of 11-DEC-2021 13:33, T wave inversion no longer evident in Anterior leads Confirmed by Alfredo Gramajo ([id number]) on 12/12/2021 10:33:10 AM Referred By: REFERRED SELF Confirmed By:Alfredo Gramajo
[2021-12-12] MEDS: MAGNESIUM SULFATE / D5W 1 GM/100 ML BAG IV SCH ×2 (10:50→12:58)
--- NOTE | 2021-12-12 10:58 | Hospitalist Progress Note ---
Date of Service December 12, 2021 Assessment & Plan (1) Chest pain: Plan: Atypical chest pain left-sided radiating to the left shoulder that was sharp in nature that came on at rest and went away at rest. Does have risk factors for CAD of age and hypertension, remote history of smoking Initial ECG with nonspecific T wave changes in V1 V2, troponin negative. These T wave changes have resolved on today's EKG. Her vitals are stable and her pulse ox 97% on room air. She does have a remote history of a PE postoperatively from a hip replacement in 2002, but I do not suspect PE at this time and she does not need work-up for this Suspect this is most likely related to GI process given recent start on daily prednisone-could be esophageal spasm * Patient reports that she has been on steroids for the last 3 weeks. Initially started on methylprednisolone [address] Izquierdo. Then converted to prednisone [address] Hirsch for chronic back/hip pain. * Discontinue steroids * Patient also reports history of gastritis and previously followed with Dr. Bustillos of the [facility] Gastroenterology group. * Do a trial of Carafate, ambulate patient, out of bed to chair, and see if this improves. -Continue observation with telemetry -Serial troponin is negative -Consider stress test as an outpatient arranged after discharge by PCP -Continue Protonix 40 mg p.o. twice daily. Will discontinue daily prednisone Per discussion with patient and family related to gastritis and tracheomalacia as possible complications -Previously followed with Dr. Juarez from [facility] for chronic low back and hip pain. Recommend patient reestablish with him next week on discharge -Continue home Plavix (2) Benign hypertension: Plan: Blood pressures are controlled typically but mildly elevated here likely secondary to anxiety but also recently started on prednisone which will be discontinued Continue home losartan Consider addition of thiazide diuretic or beta-gilda per outpatient management (3) GERD (gastroesophageal reflux disease): Plan: Continue home famotidine Adding Protonix 40 mg p.o. twice daily (4) Carotid artery stenosis: Plan: Status post right carotid endarterectomy many years ago Follows with vascular surgery, stable on the right, 50% stenosis on the left Continue Plavix and statin (5) DJD (degenerative joint disease), lumbar: Plan: Followed by neurosurgery at [facility] Had lumbar surgery in 2020 but no longer wants to pursue any further surgical measures Pain control as needed with Tylenol, Jyotsna Now recently started on Steroids Reestablish with Dr. Juarez on discharge (6) Dyslipidemia: Plan: Continue atorvastatin (7) Generalized osteoarthritis of multiple sites: Plan: Continue Tylenol as needed (8) Mild cognitive impairment: Plan: Supportive care Continue home memantine Follows with neurology (9) Postmenopausal atrophic vaginitis: Plan: Hold home estradiol (10) Asthma: Plan: No acute issues Continue albuterol as needed and daily maintenance inhaler (11) Transient ischemic attack (TIA): Plan: History of such Continue Plavix, statin Plan: DVT prophylaxis-Lovenox SQ Disposition-bring in on observation to medical floor telemetry, expect discharge tomorrow Per discussion with patient, daughter, . DNR/DNI as per discussion with patient with her and daughter present at the bedside Admission and Anticipated Discharge Date Admission Date: December 11, 2021 Subjective Attending: Dr. Alex Patient was seen and examined in room 280. She continues to have intermittent pain that is mostly located in the mid epigastric region. She does describe some pain that starts in the throat or extends her chest and under her abdomen. She reports that she has been on methylprednisolone as prescribed by Dr. Izquierdo and then changed to prednisone by Dr. Hirsch or back and hip pain. She is currently on 3 weeks of Steroids.Cardiac markers are within normal limits. She had some T wave inversion yesterday. This is resolved on today's EKG. Is a slight decrease in magnesium of 1.8. Otherwise her electrolytes are balanced.She denies any nausea or vomiting. He has no hematemesis, melena, hematochezia, bright red blood per rectum.Patient does have a history of gastritis and was previously followed by Dr. Bustillos.Previous symptoms were similar to this admission.This was treated successfully with Carafate. Patient denies any fever, chills, sweats, rigors.Aside from the above described pain, she has no acute complaints. Review of Systems Review of Systems: All systems reviewed & are unremarkable except as noted in Subjective Physical Exam Physical Exam: GENERAL : No acute distress EYES: No icterus, gaze conjugate NOSE: No evidence of epistaxis MOUTH: No lesions or candidiasis NECK: Supple LUNGS: CTA B/L, no wheezes, rales or rhonchi HEART: Regular, rate controlled ABDOMEN: Soft, ND, BS Present. Mild tenderness in the midepigastric region with palpation. EXTREMITIES: No LE edema, pedal pulses intact NEURO: A&OX3 Results & Data Results & Data ([facility]) Vital Signs (Past 12 Hours) Vital Signs Temp Pulse Pulse Resp BP BP Pulse Ox 12/12/21 07:17 59 L 12/12/21 07:00 36.5 C 56 L 18 134/69 97 12/12/21 06:00 65 20 153/76 H 97 12/12/21 03:11 36.6 C 62 18 117/68 97 12/12/21 02:20 68 12/12/21 02:12 61 16 116/65 97 12/12/21 01:26 61 18 127/75 98 12/12/21 01:05 71 22 170/71 H 12/12/21 00:51 67 18 170/78 H 94 12/11/21 23:39 68 12/11/21 23:30 36.8 C 71 18 122/73 93 Critical Care Results & Data Vital Signs (Past 12 Hours) Vital Signs Temp Pulse Pulse Resp BP BP Pulse Ox 12/12/21 11:00 36.6 C 66 18 133/71 93 12/12/21 07:17 59 L 12/12/21 07:00 36.5 C 56 L 18 134/69 97 12/12/21 06:00 65 20 153/76 H 97 12/12/21 03:11 36.6 C 62 18 117/68 97 12/12/21 02:20 68 12/12/21 02:12 61 16 116/65 97 12/12/21 01:26 61 18 127/75 98 12/12/21 01:05 71 22 170/71 H 12/12/21 00:51 67 18 170/78 H 94 12/11/21 23:39 68 12/11/21 23:30 36.8 C 71 18 122/73 93 Lab & Micro Results (Past 24 Hours) 2 RBC 4.32 M/uL (4.2-5.4) 12/12/21 WBC 6.54 K/uL (4.8-10.8) 12/12/21 Hgb 13.2 g/dL (12.0-16.0) 12/12/21 Hct 39.4 % (37-47) 12/12/21 MCV 91.2 fL (80-100) 12/12/21 MCH 30.6 pg (25-34) 12/12/21 MCHC 33.5 g/dL (32-36) 12/12/21 RDW Standard Deviation 44.8 fL (36.4-46.3) 12/12/21 RDW Coefficient of Variation 13.4 % (11.5-14.5) 12/12/21 Plt Count 169 K/uL (130-400) 12/12/21 MPV 10.6 fL (7.4-10.4) H 12/12/21 Neutrophils (%) (Auto) 58.6 % 12/12/21 Lymphocytes (%) (Auto) 27.1 % 12/12/21 Monocytes # (Auto) 0.60 K/uL (0.11-0.59) H 12/12/21 Eosinophils # (Auto) 0.28 K/uL (0-0.5) 12/12/21 Immature Granulocyte % (Auto) 0.2 % 12/12/21 Neutrophils # (Auto) 3.84 K/uL (1.4-6.5) 12/12/21 Lymphocytes # (Auto) 1.77 K/uL (1.2-3.4) 12/12/21 Monocytes # (Auto) 0.60 K/uL (0.11-0.59) H 12/12/21 Eosinophils # (Auto) 0.28 K/uL (0-0.5) 12/12/21 Basophils # (Auto) 0.04 K/uL (0-0.2) 12/12/21 Immature Granulocyte # (Auto) 0.01 K/uL (0.00-0.02) 12/12/21 Na 136 mmol/L (136-145) 12/12/21 K 4.0 mmol/L (3.5-5.1) 12/12/21 Cl 102 mmol/L (98-107) 12/12/21 CO2 26 mmol/L (21-32) 12/12/21 Anion Gap 8 (3-11) 12/12/21 BUN 15 mg/dl (6-23) 12/12/21 Creatinine 0.81 mg/dl (0.6-1.2) 12/12/21 Estimated GFR ( Amer) 77.8 ml/min 12/12/21 Estimated GFR (Non-Af Amer) 67.2 ml/min 12/12/21 BUN/Creatinine Ratio 18.5 (10-20) 12/12/21 Glu 87 mg/dl (70-99(Fasting)) 12/12/21 Ca 8.8 mg/dl (8.5-10.1) 12/12/21 Mg 1.8 mg/dl (1.7-2.4) 12/12/21 06:04 12/12/21 Calcium Level 8.8 mg/dl (8.5-10.1) 12/12/21 06:04 12/12/21 Diagnostic Findings (Past 24 Hours) Chest X-Ray 12/11/21 13:01 SINGLE VIEW CHEST CLINICAL HISTORY: Atypical chest pain FINDINGS: An AP, portable, upright chest radiograph is compared to study dated 11/24/2018. The cardiomediastinal silhouette is top normal for projection. Enlargement of the central pulmonary arteries is unchanged and suggests pulmonary artery hypertension. The lungs and pleural spaces are clear. No pne umothorax is seen. The skeletal structures are osteopenic. The bony thorax is grossly intact. IMPRESSION: No active disease in the chest. ACT 112: Negative or not required by law. Electronically signed by: Alex Carranza M.D. 12/11/2021 1:11 PM I & O Totals 24 Hours 12/11/21 12/12/21 12/13/21 06:59 06:59 06:59 Intake Total 400 / 400 Balance 400 / 400 Cumulative 12/11/21 12:33 thru 12/12/21 06:35 Intake Total 400 Balance 400 RT Ventilator Mngmt (Last Documented) Ventilator Ordered Settings Respiratory Rate 18 12/12/21 11:00 Ventilator - PT Measurements Respiratory Rate 18 PG Care Time/CCT Total # of Minutes Spent Total Time Spent with Patient: Total time spent is greater than 50% in coordination of care (as documented) at patient's floor/unit and/or counseling patient:30 minutes including discussion with family Coding Level of Care Code 73578 Subseq Obs Care Lvl 2 Diagnoses Chest pain R07.9 Chest pain type: unspecified Benign hypertension I10 GERD (gastroesophageal reflux disease) K21.9 Carotid artery stenosis I65.29 DJD (degenerative joint disease), lumbar M47.816 Dyslipidemia E78.5 Generalized osteoarthritis of multiple sites M15.9 Mild cognitive impairment G31.84 Postmenopausal atrophic vaginitis N95.2 Asthma J45.909 Transient ischemic attack (TIA) G45.9 Time Spent (min) 30 (1) Chest pain Chest pain type: unspecified Qualified Code(s): R07.9 - Chest pain, unspecified
--- NOTE | 2021-12-12 12:25 | XCELERA ---
[id number]
[2021-12-12] MEDS: SUCRALFATE 1 GM/10 ML UDC PO SCH ×3 (14:05→20:18)
[2021-12-12] MEDS: ENOXAPARIN INJ 40 MG/0.4 ML SYR SQ SCH (20:17)
[2021-12-13] MEDS: CLOPIDOGREL BISULFATE 75 MG TAB PO SCH (08:45)
[2021-12-13] MEDS: FAMOTIDINE 40 MG TABLET PO SCH (08:45)
[2021-12-13] MEDS: PANTOprazole 40 MG TAB PO SCH (08:45)
[2021-12-13] MEDS: LOSARTAN POTASSIUM 50 MG TAB PO SCH (08:45)
[2021-12-13] MEDS: MEMANTINE HCL 10 MG TAB PO SCH (08:45)
[2021-12-13] MEDS: FLUTICASONE FUROATE 100MCG 14 PUFFS/INHALER INH SCH (08:46)
[2021-12-13] MEDS: SUCRALFATE 1 GM/10 ML UDC PO SCH (08:46)
[2021-12-13] MEDS: FLUTICASONE PROPIONATE NA SPR 16 GM BTL NAE SCH (08:47)
--- NOTE | 2021-12-13 12:33 | Electrocardiogram Report ---
Test Reason : Blood Pressure : / mmHG Vent. Rate : 061 BPM Atrial Rate : 061 BPM P-R Int : 194 ms QRS Dur : 088 ms QT Int : 398 ms P-R-T Axes : 055 -06 035 degrees QTc Int : 400 ms Normal sinus rhythm Nonspecific ST abnormality Abnormal ECG When compared with ECG of 12-DEC-2021 00:46, No significant change was found Confirmed by Alfredo Gramajo ([id number]) on 12/13/2021 12:33:37 PM Referred By: REFERRED SELF Confirmed By:Alfredo Gramajo
--- NOTE | 2021-12-13 12:56 | Discharge Summary ---
Date of Service December 13, 2021 Admission HPI Per Admitting Provider This patient is an 81-year-old female with history of HTN, mild cognitive impairment, PE, hyperlipidemia, PREETI, lumbar spine pain and spinal stenosis on chronic prednisone recently started 1 week ago, GERD, and asthma, who presents to the ER with left-sided chest pain radiating into the left shoulder that resolved on its own after taking aspirin and Tums prior to arrival. She reports she was getting ready to go somewhere with her and had acute onset of left-sided pain that was very sharp in nature and radiating to the shoulder. It was not associated with shortness of breath, diaphoresis, nausea, or l ightheadedness. It was a 6-7/10 in severity. She initially took 2 Tums given to her by her and this did not do much for the pain. She then took a baby aspirin and he brought her to the hospital. In the ER her chest pain resolved after 10 minutes for a total sustained time of 90 minutes of pain. She has never had anything like this in the past. She does report that she recently started on low-dose prednisone a week ago for her chronic severe lower back pain as she has now decided to defer further surgical management. The prednisone is helping tremendously with her pain and she wants to stay on it. Her work-up in the ER showed troponin and ECG both normal. Laboratory work-up otherwise unremarkable. Chest x-ray negative for acute disease. She will be admitted for work-up for chest pain. Principal Diagnosis chest pain Discharge Exam Constitutional WD/WN, vitals as above Eyes PERRL, conjunctivae normal, anicteric sclerae ENMT external ear and nose normal, oropharynx normal Neck trachea midline, no thyromegaly Respiratory normal respiratory effort, lungs clear to auscultation Cardiovascular RRR, no murmur, no edema Vessels: no JVD and no carotid bruit Chest (Breasts) Chest: normal inspection of chest Gastrointestinal (Abdomen) normal bowel sounds, soft, nontender, no hepatosplenomegaly Musculoskeletal Extremities: extremities normal to inspection; no cyanosis and no clubbing Skin no rashes, warm and dry Neurologic moves all extremities and awake; no focal motor deficits Psychiatric A+Ox3, euthymic affect Lymphatic no lymphedema Discharge Data Allergies Allergy/AdvReac Type Severity Reaction Status Date / Time Iodinated Contrast Media Allergy Intermediate hives Verified 12/11/21 14:35 latex Allergy Unknown SKIN TEAR Verified 12/11/21 14:35 WHERE ADHESIVE WAS. PAPER TAPE OK promethazine AdvReac Intermediate DELIRIUM Verified 12/11/21 14:35 Consultations 12/11/21 15:22 ED Decision to Admit Stat Hospital Course (1) Chest pain: Atypical chest pain left-sided radiating to the left shoulder that was sharp in nature that came on at rest and went away at rest. Does have risk factors for CAD of age and hypertension, remote history of smoking Initial ECG with nonspecific T wave changes in V1 V2, troponin negative. These T wave changes have resolved on today's EKG. Her vitals are stable and her pulse ox 97% on room air. She does have a remote history of a PE postoperatively from a hip replacement in 2002, but I do not suspect PE at this time and she does not need work-up for this Suspect this is most likely related to GI process given recent start on daily prednisone-could be esophageal spasm * Patient reports that she has been on steroids for the last 3 weeks. Initially started on methylprednisolone [address] Izquierdo. Then converted to prednisone [address] Hirsch for chronic back/hip pain. * Discontinue steroids * Patient also reports history of gastritis and previously followed with Dr. Bustillos of the [facility]. * Do a trial of Carafate, ambulate patient, out of bed to chair, and see if this improves. -Continue observation with telemetry -Serial troponin is negative -Consider stress test as an outpatient arranged after discharge by PCP -Continue Protonix 40 mg p.o. twice daily. Will discontinue daily prednisone Per discussion with patient and family related to gastritis and tracheomalacia as possible complications -Previously followed with Dr. Juarez from [facility] for chronic low back and hip pain. Recommend patient reestablish with him next week on discharge -Continue home Plavix On 12/13 Trops were negative. Echo was benign. Symptoms did not return. Discussed with daughter Blessing and patient. Patient appeared forgetful and does suffer from dementia. She should likely followup with her PCP and neurologist. In regards to her chest pain, patient may benefit from an outpatient stress test. will defer to PCP, may need outpatient followup with [facility] cardio. Had a curbside discussion with mission commander manager validation, who recommended outpatient stress test. If this workup is negative, then will recommend GI followup. (2) Benign hypertension: Blood pressures are controlled typically but mildly elevated here likely secondary to anxiety but also recently started on prednisone which will be discontinued Continue home losartan Consider addition of thiazide diuretic or beta-gilda per outpatient management (3) GERD (gastroesophageal reflux disease): Continue home famotidine Adding Protonix 40 mg p.o. twice daily (4) Carotid artery stenosis: Status post right carotid endarterectomy many years ago Follows with vascular surgery, stable on the right, 50% stenosis on the left Continue Plavix and statin (5) DJD (degenerative joint disease), lumbar: Followed by neurosurgery at [facility] Had lumbar surgery in 2020 but no longer wants to pursue any further surgical measures Pain control as needed with Tylenol, Robaxin Now recently started on Steroids Reestablish with Dr. Juarez on discharge (6) Dyslipidemia: Continue atorvastatin (7) Generalized osteoarthritis of multiple sites: Continue Tylenol as needed (8) Mild cognitive impairment: Supportive care Continue home memantine Follows with neurology (9) Postmenopausal atrophic vaginitis: Hold home estradiol (10) Asthma: No acute issues Continue albuterol as needed and daily maintenance inhaler (11) Transient ischemic attack (TIA): History of such Continue Plavix, statin DVT prophylaxis-Lovenox SQ Disposition-bring in on observation to medical floor telemetry, expect discharge tomorrow Per discussion with patient, daughter, . DNR/DNI as per discussion with patient with her and daughter present at the bedside Total Time Total Time Spent Total Time Spent (In Minutes): 32 Discharge Plan Discharge Items Patient Disposition: Home - Self-Care Reason For Visit: CHEST PAIN Discharge Diagnosis: chest pain Activity: Resume your previous activity Non-emergency contact: Primary Care Provider Call non-emergency contact if: you have any medication questions Follow-up/Referrals: Jess Hirsch MD [Primary Care Provider] - 12/21/21 4:00 pm Diet: Regular Addtl Attending Provider Instructions: Recommend close followup with your PCP. May recommend outpatient stress test. -Your work up in the hospital was negative. -Continue Protonix 40 mg p.o. twice daily. Will slowly taper and then discontinue daily prednisone; Per discussion with patient and family related to gastritis and tracheomalacia as possible complications -Previously followed with Dr. Juarez from pain for chronic low back and hip pain. Recommend patient reestablish with him next week on discharge -Continue home Plavix Pending Studies at Discharge: No Stand-Alone Forms: My [facility], Smoking Cessation Medications and DC Order Prescriptions: New pantoprazole 40 mg Tablet,Delayed Release (Dr/Ec) 40 mg PO BID Qty: 60 RF: 0 prednisone 1 mg tablet 1 mg PO DAILY Qty: 30 RF: 0 Continued estradiol 0.01 % (0.1 mg/gram) cream 1 g VAGINAL 2XWK Qty: 42.5 RF: 3 fluticasone propionate 50 mcg/actuation spray,suspension 2 spray Intranasal DAILY Qty: 15.8 RF: 11 clopidogrel 75 mg tablet 75 mg PO DAILY Qty: 90 RF: 1 famotidine 40 mg tablet 40 mg PO BID Qty: 60 RF: 11 atorvastatin 10 mg tablet 10 mg PO 3XWK Qty: 90 RF: 3 losartan 100 mg tablet 100 mg PO DAILY Qty: 90 RF: 3 albuterol sulfate [Ventolin HFA] 90 mcg/actuation HFA aerosol inhaler 2 puff INHALATION .COMPLEX PRN (Reason: shortness of breath) Qty: 8.5 RF: 3 methocarbamol 500 mg tablet 500 mg PO BID PRN (Reason: spasms) Qty: 60 RF: 1 memantine 10 mg tablet 10 mg PO BID RF: 0 metronidazole 0.75 % cream 1 applic topical BID RF: 0 beclomethasone dipropionate 40 mcg/actuation HFA aerosol breath activated 2 puff Inhalation QAM RF: 0 acetaminophen [Tylenol Extra Strength] 500 mg tablet 500 mg PO BID PRN (Reason: Pain) RF: 0 Discontinued prednisone 5 mg tablet 5 mg PO DAILY Qty: 30 RF: 5 Discharge Orders: Discharge Order (Routine); Ordered 12/13/21 Ordered By: Ranjith Linn Admission Data Admit Date/Time: 12/11/21 16:41 Attending Provider: Ranjith Linn Admit Provider: Darlene Gonzalez Primary Care Provider: Jess Hirsch Other Providers: Darlene Gonzalez Other Interventions: Discharge Summary Assessment (RN) Last Done: 12/13/21 11:42 Coding Level of Care Code D/C DAY MANAGEMENT >30 MINS Diagnoses Chest pain R07.9 Chest pain type: unspecified Benign hypertension I10 GERD (gastroesophageal reflux disease) K21.9 Carotid artery stenosis I65.29 DJD (degenerative joint disease), lumbar M47.816 Dyslipidemia E78.5 Generalized osteoarthritis of multiple sites M15.9 Mild cognitive impairment G31.84 Postmenopausal atrophic vaginitis N95.2 Asthma J45.909 Transient ischemic attack (TIA) G45.9
--- NOTE | 2021-12-13 12:57 | Electrocardiogram Report ---
Test Reason : Blood Pressure : / mmHG Vent. Rate : 074 BPM Atrial Rate : 074 BPM P-R Int : 166 ms QRS Dur : 090 ms QT Int : 362 ms P-R-T Axes : 054 006 041 degrees QTc Int : 401 ms Normal sinus rhythm Normal ECG When compared with ECG of 12-DEC-2021 05:49, (unconfirmed) No significant change was found Confirmed by Alfredo Gramajo ([id number]) on 12/13/2021 12:56:47 PM Referred By: REFERRED SELF Confirmed By:Alfredo Gramajo
== END 2021-12-13 12:04 | disposition home or self-care (01) ==
LOC: 2N 12:33 → ED 12:33 → SUATTDRO 16:41 → 2N 18:54

== ENCOUNTER 2024-05-12 19:18 | Observation (INO) ==
[2024-05-12 20:01] LABS: Albumin Globulin Ratio 1.6 (0.9-2); Albumin Level 4.3 gm/dl (3.4-5.0); Bilirubin,Total 0.7 mg/dl (0.2-1.0); Calcium 9.5 mg/dl (8.6-10.3); Creatinine Clr Calc Pharmacy 39.5 ml/min; Est GFR (African American) 59.5 ml/min; Est GFR (Non-African American) 51.3 ml/min; Globulin 2.7 gm/dl (2.5-4.0); Potassium 3.9 mmol/L (3.5-5.1)
[2024-05-12 20:03] LABS: Hemoglobin 13.4 g/dl (12.0-16.0); Mean Corpuscular Hemoglobin 30.1 pg (25.0-34.0); Mean Corpuscular Hgb Conc 33.5 g/dL (32.0-36.0); Mean Corpuscular Volume 89.9 fL (80.0-100.0); Mean Platelet Volume 11.4 fL (9.4-12.4); Platelet Count 146 K/uL (130-400); RDW Coefficient of Variation 13.9 % (11.5-14.5); RDW Standard Deviation 45.1 fL (36.4-46.3); Red Blood Count 4.45 M/uL (4.20-5.40); White Blood Count 8.25 K/ul (4.8-10.8)
[2024-05-12 20:04] LABS: Basophils # (auto) 0.03 K/uL (0.00-0.20); Basophils % (auto) 0.4 %; Eosinophils # (auto) 0.22 K/uL (0.00-0.50); Eosinophils % (auto) 2.7 %; Immature Granulocytes # (auto) 0.04 K/uL (0.01-0.20); Immature Granulocytes % (auto) 0.5 %; Lymphocytes # (auto) 0.85 K/uL (1.20-3.40); Lymphocytes % (auto) 10.3 %; Monocytes # (auto) 0.47 K/uL (0.11-0.59); Monocytes % (auto) 5.7 %; Neutrophils # (auto) 6.64 K/uL (1.40-6.50); Neutrophils % (auto) 80.4 %
--- NOTE | 2024-05-12 20:04 | XRay Report ---
XR chest 1V not portable HISTORY: 83 years-old Female Chest pain, nonspecific COMPARISON: 01/20/2024 TECHNIQUE: AP view chest FINDINGS: Cardiac silhouette is unchanged. Mild right hemidiaphragmatic elevation. No pneumothorax, pleural eff usion or airspace consolidation. Emphysema. Bones appear intact. IMPRESSION: Emphysema without acute process of the chest. ACT 112: Negative or not required by law. The above report was generated using voice recognition software. It may contain grammatical, syntax o r spelling errors. Electronically signed by: Tung Black M.D. 05/12/2024 8:03 PM
[2024-05-12 20:07] LABS: Troponin I High Sensitivity 4.6 pg/ml (0-14)
[2024-05-12 20:14] LABS: INR 0.9 (0.9-1.1); Partial Thromboplastin Ratio 0.8; Partial Thromboplastin Time 21 Seconds (21-31); Prothrombin Time 10.3 Seconds (9.0-12.0)
[2024-05-12] MEDS: ONDANSETRON 4 MG OD TAB PO STA (20:56)
[2024-05-12] MEDS: ASPIRIN 81 MG CHEW PO STA (20:57)
--- NOTE | 2024-05-12 21:12 | Emergency Department Note ---
History of Present Illness General Chief Complaint: Chest Pain Stated Complaint: Nausea, Chest Pain Time Seen by Provider: 05/12/24 19:38 History of Present Illness Provider Complaint: chest pain Time: 17:30 Duration: improved and now resolved Onset: during rest Pain Location: substernal Pain Radiation: none Severity: moderate Current Pain Intensity: 0 Quality: + aching, + heaviness and + dull Relieved By: + nothing Exacerbated By: + nothing Context: no recent illness, no recent surgery, no recent travel or no trauma/injury Associated symptoms: + nausea; no vomiting, no diaphoresis, no dyspnea, no syncope, no palpitations, no cough or no leg swelling Home Medications Medication Instructions Recorded Confirmed Type acetaminophen 500 mg tablet 500 mg PO BID PRN Pain 06/17/20 04/25/24 History (Tylenol Extra Strength) L.acidophil-L.casei-B.bifid-B.longum-FOS 1 cap PO HS 02/08/22 04/25/24 History 2 billion cell-50 mg capsule (Probiotic Blend) albuterol sulfate 90 mcg/actuation 2 puff inhalation .COMPLEX PRN 12/22/22 04/25/24 Rx aerosol inhaler (Ventolin HFA) shortness of breath #8.5 grams sucralfate 100 mg/mL oral 10 ml PO QID PRN 12/22/22 04/25/24 History suspension (Carafate) atorvastatin 10 mg tablet 10 mg PO 3XWK #90 tabs 09/30/23 04/25/24 Rx losartan 100 mg tablet 100 mg PO QAM #90 tabs 11/07/23 04/25/24 Rx metronidazole 0.75 % topical cream 1 applic topical BID PRN 11/23/23 04/25/24 History terbinafine HCl 250 mg tablet 250 mg PO DAILY 12 weeks #84 tabs 11/23/23 04/25/24 Rx methocarbamol 500 mg tablet 500 mg PO BID spasms #60 tabs 12/05/23 04/25/24 Rx famotidine 40 mg tablet 40 mg PO BID #180 tabs 01/20/24 04/25/24 Rx pantoprazole 40 mg tablet,delayed See Rx Instructions .Route 01/20/24 04/25/24 Rx release .COMPLEX #60 tabs solifenacin 5 mg tablet (Vesicare) 5 mg PO DAILY #90 tabs 02/01/24 04/25/24 Rx galantamine 4 mg tablet 4 mg PO BID #180 tabs 02/15/24 04/25/24 Rx memantine 10 mg tablet 10 mg PO BID #180 tabs 02/15/24 04/25/24 Rx lidocaine 5 % topical patch 1 patch topical .twice daily #15 ea 04/25/24 04/25/24 Rx prednisone 10 mg tablet See Rx Instructions .Route 04/25/24 04/25/24 Rx .COMPLEX #10.5 tabs benzonatate 100 mg capsule 100 mg PO BID PRN cough #90 caps 05/02/24 Rx clopidogrel 75 mg tablet See Rx Instructions .Route 05/02/24 Rx .COMPLEX #90 tabs Allergies Allergy/AdvReac Type Severity Reaction Status Date / Time Iodinated Contrast Media Allergy Intermediate hives Verified 04/25/24 13:50 latex Allergy Intermediate SKIN TEAR Verified 04/25/24 13:50 WHERE ADHESIVE WAS. PAPER TAPE OK promethazine AdvReac Intermediate DELIRIUM Verified 04/25/24 13:50 Past Med/Surg History Problem List Chest pain (Acute) Cerumen impaction Interstitial lung disease Chronic coughing Benign hypertension (Chronic 02/25/13) Postmenopausal atrophic vaginitis (Acute) Mild cognitive impairment (Acute) Lumbar radiculopathy (Acute) Generalized osteoarthritis of multiple sites (Acute) Dyslipidemia (Chronic) DJD (degenerative joint disease), lumbar Arthritis of knee, left History of bilateral total hip arthroplasty Gastritis Epigastric pain GERD (gastroesophageal reflux disease) Transient ischemic attack (TIA) 01/2003--MEMORY LOSS--ON PLAVIX Asthma INHALER PRN Spinal stenosis Sensorineural hearing loss (SNHL) of both ears Chronic cerebral ischemia (Acute) Carotid artery stenosis (Acute) Status post laminectomy @ [facility] 02/2021 Medical History Respiratory crackles at both lung bases Osteoarthritis Scoliosis On anticoagulant therapy PLAVIX DAILY Pulmonary embolism 2012 Anxiety Memory loss of unknown cause ON MEMANTINE ? D/T TIA---FOLLOWS W DR. 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) Rotator cuff tear arthropathy (02/25/13) Surgical History History of carpal tunnel release History of cataract surgery History of esophagogastroduodenoscopy (EGD) last 10/2018 H/O breast surgery BILT BREASTS---CYSTS REMOVAL (BENIGN) H/O repair of right rotator cuff History of total right hip replacement History of total left hip replacement History of appendectomy History of bilateral tubal ligation History of colonoscopy History of tooth extraction WISDOM TEETH History of tonsillectomy and adenoidectomy History of carotid endarterectomy 2002 R SIDE @ [facility]---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 Family History Mother Family history of diabetes mellitus Myocardial infarction Family/Other Family history of diabetes mellitus MATERNAL AUNTS/UNCLES (TOTAL OF 3) Father Prostate cancer Cancer liver Brother Lung disease pulmonary fibrosis Other No family history of adverse response to anesthesia Denies family history of Ovarian cancer Breast cancer Colorectal cancer Social History Smoking Status: Former smoker Tobacco Type: Cigarettes Age Started Using Tobacco: 20; Age Quit Using Tobacco: 53; packs per day: 1; Second Hand Exposure: No; Do You Dip or Chew Tobacco: No; Hx Alcohol Use: Yes Alcohol type: wine Alcohol Intake Frequency: Monthly or Less Hx Substance Use: No Preferred Language: Citizen Of [place] Communication Ability: Effective Visual Impairment: Limited 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 Beliefs That Will Affect Care: None marital status: Current Living Situation: Spouse current occupational status: retired Feels Safe at Home: Yes Childhood Exposure to Second-Hand Smoke: Yes Diet: regular caffeine: Yes Dental Care, Regularly: Yes Physical Activity Frequency: Does not Exercise Seatbelt Use: always Sunscreen Use: Yes Do you think of yourself as: straight/heterosexual Assistive Devices: Glasses and Walker Physical Exam Vital Signs Vital Signs - 24 hr 05/12/24 19:27 05/12/24 19:27 05/12/24 19:28 Temperature Temperature Source Pulse Rate 69 69 77 Pulse Rate from SpO2 Sensor 76 Pulse Rhythm Regular Respiratory Rate 20 20 Respiratory Effort / Characteristics Respiratory Depth Respiratory Pattern Blood Pressure 186/138 H Blood Pressure Mean 154 Pulse Oximetry 97 100 Oxygen Delivery Method Room Air Room Air Sepsis Recent Fever Within 48 Hours Sepsis New/Unexplained Change in Mental Status Sepsis Action Taken by Nursing 05/12/24 19:29 05/12/24 19:49 05/12/24 20:00 Temperature 36.6 C Temperature Source Oral Pulse Rate 77 70 71 Pulse Rate from SpO2 Sensor 70 72 Pulse Rhythm Regular Respiratory Rate 20 15 19 Respiratory Effort / Characteristics Non-Labored Spontaneous Respiratory Depth Normal Respiratory Pattern Regular Blood Pressure 186/138 H 165/72 H 158/81 H Blood Pressure Mean 154 118 118 Pulse Oximetry 100 99 97 Oxygen Delivery Method Room Air Room Air Room Air Sepsis Recent Fever Within 48 Hours No Sepsis New/Unexplained Change in Mental Status No Sepsis Action Taken by Nursing No Action Required 05/12/24 20:30 05/12/24 21:00 Temperature Temperature Source Pulse Rate 69 73 Pulse Rate from SpO2 Sensor 68 71 Pulse Rhythm Respiratory Rate 17 20 Respiratory Effort / Characteristics Respiratory Depth Respiratory Pattern Blood Pressure 164/92 H 168/82 H Blood Pressure Mean 105 110 Pulse Oximetry 94 99 Oxygen Delivery Method Room Air Room Air Sepsis Recent Fever Within 48 Hours Sepsis New/Unexplained Change in Mental Status Sepsis Action Taken by Nursing Physical Exam GENERAL: She is oriented to person, place, and time. She appears well-developed and well-nourished. She does not appear distressed. HENT: Exam performed. -Head: Normocephalic and atraumatic. -Right Ear: External ear normal. No mastoid erythema -Left Ear: External ear normal. No mastoid erythema -Mouth/Throat: The oropharynx is clear and moist. No trismus in the jaw. No dental abscesses or uvula swelling. No oropharyngeal exudate or tonsillar abscesses. EYES: Conjunctivae and EOM are normal.Right eye exhibits no discharge. Left eye exhibits no discharge. No scleral icterus. NECK: Normal range of motion. Neck supple. No JVD present. No tracheal deviation and normal range of motion present. CV: Normal rate, regular rhythm, normal heart sounds and intact distal pulses. There is no peripheral edema. Palpable radial pulses bue. PULM/CHEST: Effort normal and breath sounds normal. No respiratory distress. No stridor. She has no wheezes. She has no rales. -Chest Wall: She exhibits no tenderness. ABD: The abdomen is soft. Bowel sounds are normal. She has no distension. No mass is present. There is no tenderness. There is no rebound, no guarding, no Gardner's sign and no tenderness at McBurney's point. Rovsig negative MUSC/SKEL: Normal range of motion. There is no peripheral edema, tenderness or deformity. NEURO: Motor and sensation grossly intact. SKIN: Skin is warm and dry. She is not diaphoretic. PSYCH: She has a normal mood and affect. Behavior is normal. Judgment and thought content normal. Course Course 1937: The patient was evaluated in room A12. A complete history and physical exam was performed Cardiac monitoring: An order was placed for continuous cardiac monitoring. The monitor shows a rate of 70 with sinus rhythm interpreted by ok 2044: Vital signs stable. Labs and imaging within normal limits. Patient will be observed in the hospital for chest pain rule out ACS. Dr. Dinero [facility] hospitalist will be notified. Administered Medications Discontinued Medications Aspirin (Aspirin 81 Mg Chew) 324 mg PO NOW STA Stop: 05/12/24 20:48 Last Admin: 05/12/24 20:57 Dose: 324 mg Documented By: PILAR Ondansetron HCl (Ondansetron 4 Mg Od Tab) 4 mg PO NOW STA Stop: 05/12/24 20:48 Last Admin: 05/12/24 20:56 Dose: 4 mg Documented By: PILAR Medical Decision Making Laboratory Data Attestation: I reviewed the patient's lab results. 05/12/24 19:10 05/12/24 19:10 Labs: Lab Results 05/12/24 Range/Units 19:10 WBC 8.25 (4.8-10.8) K/ul RBC 4.45 (4.20-5.40) M/uL Hgb 13.4 (12.0-16.0) g/dl Hct 40.0 (37.0-47.0) % MCV 89.9 (80.0-100.0) fL MCH 30.1 (25.0-34.0) pg MCHC 33.5 (32.0-36.0) g/dL RDW Std Deviation 45.1 (36.4-46.3) fL RDW Coeff of Yadira 13.9 (11.5-14.5) % Plt Count 146 (130-400) K/uL MPV 11.4 (9.4-12.4) fL Immature Gran % (Auto) 0.5 % Neut % (Auto) 80.4 % Lymph % (Auto) 10.3 % [place] % (Auto) 5.7 % Eos % (Auto) 2.7 % Baso % (Auto) 0.4 % Neut # (Auto) 6.64 H (1.40-6.50) K/uL Lymph # (Auto) 0.85 L (1.20-3.40) K/uL [place] # (Auto) 0.47 (0.11-0.59) K/uL Eos # (Auto) 0.22 (0.00-0.50) K/uL Baso # (Auto) 0.03 (0.00-0.20) K/uL Immature Gran # (Auto) 0.04 (0.01-0.20) K/uL PT 10.3 (9.0-12.0) Seconds INR 0.9 (0.9-1.1) APTT 21 (21-31) Seconds PTT Ratio 0.8 Sodium 139 (136-145) mmol/L Potassium 3.9 (3.5-5.1) mmol/L Chloride 105 (98-107) mmol/L Carbon Dioxide 23 (21-32) mmol/L Anion Gap 11 (3-11) BUN 18 (6-23) mg/dl Creatinine 1.00 (0.6-1.2) mg/dl Est Cr Clr Drug Dosing 39.5 ml/min Est GFR ( Amer) 59.5 ml/min Est GFR (Non-Af Amer) 51.3 ml/min BUN/Creatinine Ratio 18.0 (10-20) Glucose 101 H (70-99(Fasting)) mg/dl Calcium 9.5 (8.6-10.3) mg/dl Total Bilirubin 0.7 (0.2-1.0) mg/dl AST 19 (13-39) U/L ALT 14 (7-52) U/L Alkaline Phosphatase 60 (34-104) U/L Troponin I High Sens 4.6 (0-14) pg/ml Total Protein 7.0 (6.0-8.3) gm/dl Albumin 4.3 (3.4-5.0) gm/dl Globulin 2.7 (2.5-4.0) gm/dl Albumin/Globulin Ratio 1.6 (0.9-2) Imaging Data Chest x-ray: Attestation: I personally reviewed and interpreted this imaging study as follows: My impression: Chest x-ray negative. Airway clear. No pneumothorax. No consolidation. No cardiomegaly or cephalization.. No free air under the diaphragm. No fractures of the skeletal structures. Radiologist's impression: Chest X-Ray 05/12/24 19:28 XR chest 1V not portable HISTORY: 83 years-old Female Chest pain, nonspecific COMPARISON: 01/20/2024 TECHNIQUE: AP view chest FINDINGS: Cardiac silhouette is unchanged. Mild right hemidiaphragmatic elevation. No pneumothorax, pleural effusion or airspace consolidation. Emphysema. Bones appear intact. IMPRESSION: Emphysema without acute process of the chest. ACT 112: Negative or not required by law. The above report was generated using voice recognition software. It may contain grammatical, syntax or spelling errors. Electronically signed by: Tung Black M.D. 05/12/2024 8:03 PM ECG Data Attestation: I personally reviewed and interpreted this ECG as follows: Rate (beats per minute): 70 Rhythm: normal sinus Findings: no ST depression, no ST elevation or no prolonged QT [facility] Narrative 1938: The patient was evaluated in room A12. A complete history and physical exam was performed Cardiac monitoring: An order was placed for continuous cardiac monitoring. The monitor shows a rate of 70 with sinus rhythm interpreted by me 2044: Vital signs stable. Labs and imaging within normal limits. Patient will be observed in the hospital for chest pain rule out ACS. Dr. Dinero [facility] hospitalist will be notified. Impression & Plan Chest pain Discharge Plan Visit Data Chief Complaint: Chest Pain Stated Complaint: Nausea, Chest Pain ED Provider: Martin Jackson Discharge Problem: Chest pain Patient Disposition: Being Evaluated by Hospitalist Forms Stand Alone Forms: [facility] Prescriptions Prescriptions: No Action atorvastatin 10 mg tablet 10 mg PO 3XWK Qty: 90 3RF losartan 100 mg tablet 100 mg PO QAM Qty: 90 3RF methocarbamol 500 mg tablet 500 mg PO BID Qty: 60 5RF pantoprazole 40 mg tablet,delayed release (DR/EC) See Rx Instructions .ROUTE .COMPLEX Qty: 60 5RF Dose Instruction: TAKE 1 TABLET BY MOUTH TWO TIMES DAILY Rx Instructions: TAKE 1 TABLET BY MOUTH TWO TIMES DAILY famotidine 40 mg tablet 40 mg PO BID Qty: 180 1RF Rx Instructions: TAKE 1 TABLET BY MOUTH TWO TIMES DAILY solifenacin [Vesicare] 5 mg tablet 5 mg PO DAILY Qty: 90 3RF clopidogrel 75 mg tablet See Rx Instructions .ROUTE .COMPLEX Qty: 90 1RF Dose Instruction: TAKE 1 TABLET BY MOUTH EVERY MORNING Rx Instructions: TAKE 1 TABLET BY MOUTH EVERY MORNING benzonatate 100 mg capsule 100 mg PO BID PRN (Reason: cough) Qty: 90 2RF galantamine 4 mg tablet 4 mg PO BID Qty: 180 3RF Rx Instructions: administer with AM and PM meals memantine 10 mg tablet 10 mg PO BID Qty: 180 3RF sucralfate [Carafate] 100 mg/mL suspension 10 ml PO QID PRN Rx Instructions: swish in mouth and swallow; use after food/drink albuterol sulfate [Ventolin HFA] 90 mcg/actuation HFA aerosol inhaler 2 puff INHALATION .COMPLEX PRN (Reason: shortness of breath) Qty: 8.5 3RF Rx Instructions: 2 puffs inhalation q4-6 hrs PRN; terbinafine HCl 250 mg tablet 250 mg PO DAILY 84 Days Qty: 84 0RF prednisone 10 mg tablet See Rx Instructions .Route .COMPLEX Qty: 10.5 0RF Rx Instructions: Take two tablets PO QD x 3 days, then one tablet PO QD x 3 days, then 1/2 tablet PO QD x 3 daysx; lidocaine 5 % adhesive patch,medicated 1 patch topical .twice daily Qty: 15 0RF Rx Instructions: leave on most painful area for up to 12 hrs metronidazole 0.75 % cream 1 applic topical BID PRN acetaminophen [Tylenol Extra Strength] 500 mg tablet 500 mg PO BID PRN (Reason: Pain) Patient Comments: Patient states she took 4 doses yesterday Probiotic Blend 2 billion cell-50 mg Capsule 1 cap PO HS Referrals Referrals: Jess Hirsch MD [Primary Care Provider] - Discharge Problem: Chest pain Qualifiers: Chest pain type: unspecified Qualified Code(s): R07.9 - Chest pain, unspecified
--- NOTE | 2024-05-12 21:48 | History & Physical Report ---
Date of Service May 12, 2024 Assessment & Plan (1) Nausea without vomiting: (2) Chest pain: (3) Interstitial lung disease: (4) Benign hypertension: (5) Mild cognitive impairment: (6) Lumbar radiculopathy: (7) Transient ischemic attack (TIA): (8) Chronic cerebral ischemia: (9) Status post laminectomy: Plan Nausea, worsening reflux, without vomiting- This is her most persistent symptom. N.p.o. this evening. To be resuming cardiac diet in the a.m. as long as nausea is improved Patient does not feel she will be able to take her evening medications Give Protonix 40 mg IV, and famotidine 20 mg IV this evening, and change both to p.o. twice daily per usual starting tomorrow morning Zofran 4 mg IV every 6 hours as needed KUB added, with no suggestion of ileus or bowel obstruction If cardiac workup is negative, patient should be considered for an endoscopy Chest pressure- This was noted to be initially on the right side, which moved toward midline, and since has disappeared spontaneously without intervention Troponin 4.6, with no acute findings on EKG The patient will be admitted to telemetry for serial cardiac enzymes, serial EKG's, cardiac rhythm monitoring and a 2-D echocardiogram with Dopplers. Most recent echo on 12/12/2021 with ejection fraction 60-65% COPD/chronic interstitial lung disease- Has had chronic crackles at lung bases for a a considerable length of time Continue usual inhalers as needed Chronic cerebral ischemia/- Cognitive impairment we will hold galantamine and memantine this evening, due to nausea, which she and family report galantamine in particular aggravates Can restart in the a.m. as long as nausea is controlled CODE STATUS: DNR/DNI As reviewed with patient and who is in attendance History of Present Illness Chief Complaint: The patient presents to the emergency department, with family, who helped reinforce her history due to issues with underlying dementia. Around 4:00 this afternoon patient developed some nausea, and then went and slept for about an hour. When she woke she was complaining of right-sided chest pain, that then moved to the midline. At around 530 this evening, her called EMS, who when arrived reported her blood pressure was elevated. The patient's chest pain has resolved completely, but the nausea has been persistent and intermittent since 4:00 this afternoon. She denies any vomiting. She denies any recent travels or sick exposures. She denies any unusual food intakes or concerning food intakes. She has had no previous occurrence of this type of discomfort or nausea. Primary Care Provider: Jess Hirsch MD The patient is an 83-year-old female with a past medical history including interstitial lung disease, hypertension, mild cognitive impairment, dyslipidemia, lumbar DJD and dextroscoliosis, history of bilateral total hip arthroplasty, gastritis, GERD, TIA, spinal stenosis, chronic cerebral ischemia, carotid artery stenosis and status post laminectomy. She presents to the emergency department symptoms as noted above. Allergies Allergy/AdvReac Type Severity Reaction Status Date / Time Iodinated Contrast Media Allergy Intermediate hives Verified 05/12/24 21:25 latex Allergy Intermediate SKIN TEAR Verified 05/12/24 21:25 WHERE ADHESIVE WAS. PAPER TAPE OK promethazine AdvReac Intermediate DELIRIUM Verified 05/12/24 21:25 Home Medications Medication Instructions Recorded Confirmed Type acetaminophen 500 mg tablet 500 mg PO BID PRN Pain 06/17/20 05/12/24 History (Tylenol Extra Strength) L.acidophil-L.casei-B.bifid-B.longum-FOS 1 cap PO HS 02/08/22 05/12/24 History 2 billion cell-50 mg capsule (Probiotic Blend) albuterol sulfate 90 mcg/actuation 2 puff inhalation .COMPLEX PRN 12/22/22 05/12/24 Rx aerosol inhaler (Ventolin HFA) shortness of breath #8.5 grams atorvastatin 10 mg tablet 10 mg PO 3XWK #90 tabs 09/30/23 05/12/24 Rx losartan 100 mg tablet 100 mg PO QAM #90 tabs 11/07/23 05/12/24 Rx metronidazole 0.75 % topical cream 1 applic topical BID PRN Skin 11/23/23 05/12/24 History Irritation methocarbamol 500 mg tablet 500 mg PO BID spasms #60 tabs 12/05/23 05/12/24 Rx famotidine 40 mg tablet 40 mg PO BID #180 tabs 01/20/24 05/12/24 Rx solifenacin 5 mg tablet (Vesicare) 5 mg PO DAILY #90 tabs 02/01/24 05/12/24 Rx memantine 10 mg tablet 10 mg PO BID #180 tabs 02/15/24 05/12/24 Rx lidocaine 5 % topical patch 1 patch topical .twice daily #15 ea 04/25/24 05/12/24 Rx benzonatate 100 mg capsule 100 mg PO BID PRN cough #90 caps 05/02/24 05/12/24 Rx clopidogrel 75 mg tablet 75 mg PO QAM 05/12/24 05/12/24 History galantamine 4 mg tablet 4 mg PO BIDM 05/12/24 05/12/24 History pantoprazole 40 mg tablet,delayed 40 mg PO BID 05/12/24 05/12/24 History release Past Med/Surg History Problem List Nausea without vomiting Chest pain (Acute) Cerumen impaction Interstitial lung disease Chronic coughing Benign hypertension (Chronic 02/25/13) Postmenopausal atrophic vaginitis (Acute) Mild cognitive impairment (Acute) Lumbar radiculopathy (Acute) Generalized osteoarthritis of multiple sites (Acute) Dyslipidemia (Chronic) DJD (degenerative joint disease), lumbar Arthritis of knee, left History of bilateral total hip arthroplasty Gastritis Epigastric pain GERD (gastroesophageal reflux disease) Transient ischemic attack (TIA) 01/2003--MEMORY LOSS--ON PLAVIX Asthma INHALER PRN Spinal stenosis Sensorineural hearing loss (SNHL) of both ears Chronic cerebral ischemia (Acute) Carotid artery stenosis (Acute) Status post laminectomy @ [facility] 02/2021 Medical History Respiratory crackles at both lung bases Osteoarthritis Scoliosis On anticoagulant therapy PLAVIX DAILY Pulmonary embolism 2012 Anxiety Memory loss of unknown cause ON MEMANTINE ? D/T TIA---FOLLOWS W DR. 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) Rotator cuff tear arthropathy (02/25/13) Surgical History History of carpal tunnel release History of cataract surgery History of esophagogastroduodenoscopy (EGD) last 10/2018 H/O breast surgery BILT BREASTS---CYSTS REMOVAL (BENIGN) H/O repair of right rotator cuff History of total right hip replacement History of total left hip replacement History of appendectomy History of bilateral tubal ligation History of colonoscopy History of tooth extraction WISDOM TEETH History of tonsillectomy and adenoidectomy History of carotid endarterectomy 2002 R SIDE @ [facility]---NO DIABETIC EDUCATOR Family History Mother Family history of diabetes mellitus Myocardial infarction Family/Other Family history of diabetes mellitus MATERNAL AUNTS/UNCLES (TOTAL OF 3) Father Prostate cancer Cancer liver Brother Lung disease pulmonary fibrosis Other No family history of adverse response to anesthesia Denies family history of Ovarian cancer Breast cancer Colorectal cancer Social History Smoking Status: Former smoker Tobacco Type: Cigarettes Age Started Using Tobacco: 20; Age Quit Using Tobacco: 53; packs per day: 1; Second Hand Exposure: No; Do You Dip or Chew Tobacco: No; Hx Alcohol Use: Yes Alcohol type: wine Alcohol Intake Frequency: Monthly or Less Hx Substance Use: No Preferred Language: Icelandic Communication Ability: Effective Visual Impairment: Limited Hearing Ability: Normal Employment Assistant Required: No Beliefs That Will Affect Care: None marital status: Current Living Situation: Spouse current occupational status: retired Feels Safe at Home: Yes Childhood Exposure to Second-Hand Smoke: Yes Diet: regular caffeine: Yes Dental Care, Regularly: Yes Physical Activity Frequency: Does not Exercise Seatbelt Use: always Sunscreen Use: Yes Do you think of yourself as: straight/heterosexual Assistive Devices: Glasses and Walker Review of Systems Review of Systems: The patient, with family's help, denies palpitations, shortness of breath, dyspnea on exertion, cough, lower extremity swelling, sore throat, fevers, chills, sweats, nausea, vomiting, diarrhea , constipation, blood in urine or stool, dysuria, urinary frequency or urgency, lightheadedness, dizziness, headache, loss of c onsciousness, rash, abnormal bruising or bleeding, imbalance, focal or generalized weakness, numbness or tingling in arms or legs, generalized arthralgias or myalgias, neck pain, or night sweats. The review of systems is otherwise negative other than for that already noted above, and at least 10 systems have been reviewed. Physical Exam Physical Exam: The patient is awake, alert and oriented 3, well developed and well nourished, normocephalic and atraumatic, lying in bed and in no acute distress. HEENT--PERRL, EOMI, mucous membranes and oropharynx mildly dry. Neck--supple. No JVD. No bruits. Thyroid normal, trachea midline, no adenopathy. Heart--normal S1 and S2. No murmurs, rubs or gallops. Lungs--crackles at the bases bilaterally, left greater than right. No respiratory distress, no accessory muscle use. Abdomen--normal bowel sounds and soft. Nontender. Nondistended Extremities--no cyanosis or clubbing. No edema. Dermatologic--normal skin turgor, normal color, no abnormal lymph nodes, no rash. Neurologic--cranial nerves II through XII grossly intact. Rheumatologic--normal range of motion. Psychiatric--normal affect. Results & Data Results & Data Vital Signs (Past 12 Hours) Vital Signs Temp Pulse Resp BP Pulse Ox O2 Del Method 05/12/24 21:00 73 20 168/82 H 99 Room Air 05/12/24 20:30 69 17 164/92 H 94 Room Air 05/12/24 20:00 71 19 158/81 H 97 Room Air 05/12/24 19:49 70 15 165/72 H 99 Room Air 05/12/24 19:29 36.6 C 77 20 186/138 H 100 Room Air 05/12/24 19:28 77 20 100 Room Air 05/12/24 19:27 69 20 186/138 H 97 Room Air 05/12/24 19:27 69 Laboratory Results Laboratory Results WBC 8.25 K/ul (4.8-10.8) 05/12/24 19:10 RBC 4.45 M/uL (4.20-5.40) 05/12/24 19:10 Hgb 13.4 g/dl (12.0-16.0) 05/12/24 19:10 Hct 40.0 % (37.0-47.0) 05/12/24 19:10 MCV 89.9 fL (80.0-100.0) 05/12/24 19:10 MCH 30.1 pg (25.0-34.0) 05/12/24 19:10 MCHC 33.5 g/dL (32.0-36.0) 05/12/24 19:10 RDW Std Deviation 45.1 fL (36.4-46.3) 05/12/24 19:10 RDW Coeff of Yadira 13.9 % (11.5-14.5) 05/12/24 19:10 Plt Count 146 K/uL (130-400) 05/12/24 19:10 MPV 11.4 fL (9.4-12.4) 05/12/24 19:10 Immature Gran % (Auto) 0.5 % 05/12/24 19:10 Neut % (Auto) 80.4 % 05/12/24 19:10 Lymph % (Auto) 10.3 % 05/12/24 19:10 [place]leton % (Auto) 5.7 % 05/12/24 19:10 Eos % (Auto) 2.7 % 05/12/24 19:10 Baso % (Auto) 0.4 % 05/12/24 19:10 Neut # (Auto) 6.64 K/uL (1.40-6.50) H 05/12/24 19:10 Lymph # (Auto) 0.85 K/uL (1.20-3.40) L 05/12/24 19:10 [place] # (Auto) 0.47 K/uL (0.11-0.59) 05/12/24 19:10 Eos # (Auto) 0.22 K/uL (0.00-0.50) 05/12/24 19:10 Baso # (Auto) 0.03 K/uL (0.00-0.20) 05/12/24 19:10 Immature Gran # (Auto) 0.04 K/uL (0.01-0.20) 05/12/24 19:10 PT 10.3 Seconds (9.0-12.0) 05/12/24 19:10 INR 0.9 (0.9-1.1) 05/12/24 19:10 APTT 21 Seconds (21-31) 05/12/24 19:10 PTT Ratio 0.8 05/12/24 19:10 Sodium 139 mmol/L (136-145) 05/12/24 19:10 Potassium 3.9 mmol/L (3.5-5.1) 05/12/24 19:10 Chloride 105 mmol/L (98-107) 05/12/24 19:10 Carbon Dioxide 23 mmol/L (21-32) 05/12/24 19:10 Anion Gap 11 (3-11) 05/12/24 19:10 BUN 18 mg/dl (6-23) 05/12/24 19:10 Creatinine 1.00 mg/dl (0.6-1.2) 05/12/24 19:10 Est Cr Clr Drug Dosing 39.5 ml/min 05/12/24 19:10 Est GFR ( Amer) 59.5 ml/min 05/12/24 19:10 Est GFR (Non-Af Amer) 51.3 ml/min 05/12/24 19:10 BUN/Creatinine Ratio 18.0 (10-20) 05/12/24 19:10 Glucose 101 mg/dl (70-99(Fasting)) H 05/12/24 19:10 Calcium 9.5 mg/dl (8.6-10.3) 05/12/24 19:10 Total Bilirubin 0.7 mg/dl (0.2-1.0) 05/12/24 19:10 AST 19 U/L (13-39) 05/12/24 19:10 ALT 14 U/L (7-52) 05/12/24 19:10 Alkaline Phosphatase 60 U/L (34-104) 05/12/24 19:10 Troponin I High Sens 4.6 pg/ml (0-14) 05/12/24 19:10 Total Protein 7.0 gm/dl (6.0-8.3) 05/12/24 19:10 Albumin 4.3 gm/dl (3.4-5.0) 05/12/24 19:10 Globulin 2.7 gm/dl (2.5-4.0) 05/12/24 19:10 Albumin/Globulin Ratio 1.6 (0.9-2) 05/12/24 19:10 Impressions Chest X-Ray 05/12/24 19:28 XR chest 1V not portable HISTORY: 83 years-old Female Chest pain, nonspecific COMPARISON: 01/20/2024 TECHNIQUE: AP view chest FINDINGS: Cardiac silhouette is unchanged. Mild right hemidiaphragmatic elevation. No pneumothorax, pleural effusion or airspace consolidation. Emphysema. Bones appear intact. IMPRESSION: Emphysema without acute process of the chest. ACT 112: Negative or not required by law. The above report was generated using voice recognition software. It may contain grammatical, syntax or spelling errors. Electronically signed by: Tung Black M.D. 05/12/2024 8:03 PM Code Status & VTE Plan Code Status DNR/DNI VTE Prophylaxis Plan VTE Prophylaxis will be ordered: Yes PG Care Time/CCT Total # of Minutes Spent Total Time Spent with Patient: Total time spent is greater than 50% in coordination of care (as documented) at patient's floor/unit and/or counseling patient: Coding Level of Care Code 88845 INT INP/OBS CARE 3/75MIN Diagnoses Nausea without vomiting R11.0 Chest pain R07.9 Chest pain type: unspecified Interstitial lung disease J84.9 Benign hypertension I10 Mild cognitive impairment G31.84 Lumbar radiculopathy M54.16 Transient ischemic attack (TIA) G45.9 Chronic cerebral ischemia I67.82 Status post laminectomy Z98.890 (2) Chest pain Chest pain type: unspecified Qualified Code(s): R07.9 - Chest pain, unspecified
[2024-05-12] MEDS: GALANTAMINE HYDROBROMIDE 4 MG TAB PO STA (21:54)
[2024-05-12] MEDS: PANTOprazole 40 MG TAB PO STA (21:55)
[2024-05-12] MEDS: SACCHAROMYCES BOULARDII 250 MG CAP PO STA (21:55)
[2024-05-12] MEDS: MEMANTINE HCL 10 MG TAB PO STA (21:55)
[2024-05-12] MEDS: FAMOTIDINE 40 MG TABLET PO STA (21:55)
[2024-05-12] MEDS: FAMOTIDINE 20MG IV PUSH 20 MG/5 ML SYR IV STA (22:08)
[2024-05-12] MEDS: NSS + 20MEQ KCL 20 MEQ/1,000 ML BAG IV STA (22:08)
[2024-05-12] MEDS: PANTOprazole 40 MG in SYRINGE 0 ML IV ONE (22:22)
[2024-05-13] MEDS ORDERED: ONDANSETRON INJ 2 MG/ML 2 ML VIAL IV PRN (00:01)
[2024-05-13] MEDS ORDERED: ACETAMINOPHEN 500 MG TAB PO PRN (00:01)
[2024-05-13] MEDS ORDERED: SUCRALFATE 1 GM/10 ML UDC PO PRN (00:01)
[2024-05-13] MEDS ORDERED: ALBUTEROL HFA 8 GM INHALER INH PRN (00:01)
[2024-05-13 04:33] LABS: Basophils # (auto) 0.04 K/uL (0.00-0.20); Basophils % (auto) 0.5 %; Eosinophils # (auto) 0.23 K/uL (0.00-0.50); Eosinophils % (auto) 2.9 %; Hematocrit (blood only) 36.8 % (37.0-47.0); Hemoglobin 12.1 g/dl (12.0-16.0); Immature Granulocytes # (auto) 0.02 K/uL (0.01-0.20); Immature Granulocytes % (auto) 0.3 %; Lymphocytes # (auto) 1.33 K/uL (1.20-3.40); Lymphocytes % (auto) 16.9 %; Mean Corpuscular Hgb Conc 32.9 g/dL (32.0-36.0); Mean Corpuscular Volume 91.3 fL (80.0-100.0); Mean Platelet Volume 10.8 fL (9.4-12.4); Monocytes # (auto) 0.67 K/uL (0.11-0.59); Monocytes % (auto) 8.5 %; Neutrophils # (auto) 5.56 K/uL (1.40-6.50); Neutrophils % (auto) 70.9 %; Platelet Count 177 K/uL (130-400); RDW Coefficient of Variation 13.8 % (11.5-14.5); RDW Standard Deviation 46.5 fL (36.4-46.3); Red Blood Count 4.03 M/uL (4.20-5.40); White Blood Count 7.85 K/ul (4.8-10.8)
[2024-05-13 04:50] LABS: Albumin Globulin Ratio 1.5 (0.9-2); Albumin Level 3.7 gm/dl (3.4-5.0); BUN Creatinine Ratio 16.3 (10-20); Bilirubin,Total 0.8 mg/dl (0.2-1.0); Calcium 9.3 mg/dl (8.6-10.3); Creatinine Clr Calc Pharmacy 40.3 ml/min; Est GFR (Non-African American) 52.6 ml/min; Globulin 2.4 gm/dl (2.5-4.0); Potassium 4.1 mmol/L (3.5-5.1); Total Protein 6.1 gm/dl (6.0-8.3)
[2024-05-13 04:56] LABS: Troponin I High Sensitivity 9.2 pg/ml (0-14)
--- NOTE | 2024-05-13 08:40 | XRay Report ---
KUB HISTORY: Acute nodule with generalized abdominal pain nausea, abdominal pain COMPARISON: 07/29/2020 FINDINGS: Nonobstructive bowel gas pattern. Renal shadows are obscured by bowel gas. Pelvic basin rach cifications are suggestive of probable phleboliths. Moderate to extensive colonic fecal retention. N o renal calculi. No ureteral calculi. No pneumoperitoneum or pneumatosis. Bilateral hip arthroplastie s. No fracture. IMPRESSION: 1. Nonobstructive bowel gas pattern. 2. Moderate to extensive colonic fecal retention. ACT 112: Negative or not required by law. The above report was generated using voice recognition software. It may contain grammatical, syntax o r spelling errors. Electronically signed by: Tung Black M.D. 05/13/2024 8:39 AM
[2024-05-13] MEDS: PANTOprazole 40 MG TAB PO SCH (08:57)
[2024-05-13] MEDS: LOSARTAN POTASSIUM 50 MG TAB PO SCH (08:57)
[2024-05-13] MEDS: MEMANTINE HCL 10 MG TAB PO SCH (08:57)
[2024-05-13] MEDS: CLOPIDOGREL BISULFATE 75 MG TAB PO SCH (08:57)
[2024-05-13] MEDS: OXYBUTYNIN CHLORIDE XL 5 MG TABCR PO SCH (08:57)
[2024-05-13] MEDS: FAMOTIDINE 40 MG TABLET PO SCH (08:57)
[2024-05-13] MEDS: LIDOCAINE 5% 1 PATCH TD SCH (08:58)
[2024-05-13] MEDS: GALANTAMINE HYDROBROMIDE 4 MG TAB PO SCH (09:46)
[2024-05-13] MEDS: amLODIPine BESYLATE 5 MG TAB PO SCH (10:17)
--- NOTE | 2024-05-13 15:57 | Discharge Summary ---
Discharge Summary Date of Service May 13, 2024 Principal Dx & Hospital Course #1 = Principal Diagnosis (1) Nausea without vomitin-year-old woman admitted for observation with persistent nausea and right sided chest pressure. she has a history of interstitial lung disease, chronic cerebral ischemia, dementia, hypertension as well as significant GERD and gastritis on both PPI and Pepcid however no known cardiac disease. she was admitted for observation because of the chest pressure symptom. She had serial EKGs and troponins which were not concerning for an acute coronary syndrome. Her symptoms had resolved by this morning. It is reassuring that she did have a normal dobutamine stress echo in January of this year with a normal EF, low risk for ischemia, and has above average exercise tolerance. her nausea also resolved by this morning and she ate all of her breakfast. Her KUB film appeared constipated. She denied constipation but is a poor historian. I think the chest pressure was related to gastrointestinal symptoms and possibly gas and nausea precipitated by constipation. she will continue her twice daily PPI and twice daily famotidine for her significant GERD, I also recommended a bowel regimen with daily MiraLAX and senna. (2) Chest pain: (3) Interstitial lung disease: Stable, she has chronic cough. She was not hypoxic or dyspneic (4) Benign hypertension: continue losartan. she was very hypertensive in the ED BPs ranged from 150- 180 / 70-100s -I added amlodipine 2.5 mg daily -follow up in primary care CKD stage III with stable with creatinine around 1 which is her baseline (5) Mild cognitive impairment: continue galantamine and memantine (6) Chronic cerebral ischemia: continue Plavix Notes For Next Care Provider constipation hypertension Medication Changes From Visit added bowel regimen and amlodipine 2.5 mg daily Admission HPI Per Admitting Provider The patient is an 83-year-old female with a past medical history including interstitial lung disease, hypertension, mild cognitive impairment, dyslipidemia, lumbar DJD and dextroscoliosis, history of bilateral total hip arthroplasty, gastritis, GERD, TIA, spinal stenosis, chronic cerebral ischemia, carotid artery stenosis and status post laminectomy. She presents to the emergency department symptoms as noted above. Discharge Exam PHYSICAL EXAMINATION Last 24h vital signs reviewed, see documentation in flowsheet General: comfortable appearing, no distress, sitting on the edge of the ED [email or web address] HEENT: Normocephalic, atraumatic, pupils round and equal, sclerae anicteric, no conjunctival injection, moist mucus membranes Lungs: Normal respiratory effort. bibasilar coarse crackles, no wheezing Heart: Regular rate and rhythm, no murmurs. No JVD Abdomen: Soft, nontender, nondistended. Bowel sounds present. Extremities: Warm, dry, well-perfused. No extremity edema. Neuro: Alert and oriented x ED and basic situation able to answer direct questions well, vague historian, face symmetric, moves 4 extremities well Psych: Normal affect and behavior Updated Medication List Medication Instructions Recorded Confirmed Type acetaminophen 500 mg tablet 500 mg PO BID PRN Pain 06/17/20 05/12/24 History (Tylenol Extra Strength) L.acidophil-L.casei-B.bifid-B.longum-FOS 1 cap PO HS 02/08/22 05/12/24 History 2 billion cell-50 mg capsule (Probiotic Blend) albuterol sulfate 90 mcg/actuation 2 puff inhalation .COMPLEX PRN 12/22/22 05/12/24 Rx aerosol inhaler (Ventolin HFA) shortness of breath #8.5 grams atorvastatin 10 mg tablet 10 mg PO 3XWK #90 tabs 09/30/23 05/12/24 Rx losartan 100 mg tablet 100 mg PO QAM #90 tabs 11/07/23 05/12/24 Rx metronidazole 0.75 % topical cream 1 applic topical BID PRN Skin 11/23/23 05/12/24 History Irritation methocarbamol 500 mg tablet 500 mg PO BID spasms #60 tabs 12/05/23 05/12/24 Rx famotidine 40 mg tablet 40 mg PO BID #180 tabs 01/20/24 05/12/24 Rx solifenacin 5 mg tablet (Vesicare) 5 mg PO DAILY #90 tabs 02/01/24 05/12/24 Rx memantine 10 mg tablet 10 mg PO BID #180 tabs 02/15/24 05/12/24 Rx lidocaine 5 % topical patch 1 patch topical .twice daily #15 ea 04/25/24 05/12/24 Rx benzonatate 100 mg capsule 100 mg PO BID PRN cough #90 caps 05/02/24 05/12/24 Rx clopidogrel 75 mg tablet 75 mg PO QAM 05/12/24 05/12/24 History galantamine 4 mg tablet 4 mg PO BIDM 05/12/24 05/12/24 History pantoprazole 40 mg tablet,delayed 40 mg PO BID 05/12/24 05/12/24 History release amlodipine 2.5 mg tablet 2.5 mg PO DAILY #30 tabs 05/13/24 Rx Hospital Stay Data Consultations 05/12/24 20:47 ED Decision to Admit Stat Diagnostic Imagining Performed Chest X-Ray 05/12/24 19:28 XR chest 1V not portable HISTORY: 83 years-old Female Chest pain, nonspecific COMPARISON: 01/20/2024 TECHNIQUE: AP view chest FINDINGS: Cardiac silhouette is unchanged. Mild right hemidiaphragmatic elevation. No pneumothorax, pleural effusion or airspace consolidation. Emphysema. Bones appear intact. IMPRESSION: Emphysema without acute process of the chest. ACT 112: Negative or not required by law. The above report was generated using voice recognition software. It may contain grammatical, syntax or spelling errors. Electronically signed by: Tung Black M.D. 05/12/2024 8:03 PM KUB X-Ray 05/12/24 21:32 KUB HISTORY: Acute nodule with generalized abdominal pain nausea, abdominal pain COMPARISON: 07/29/2020 FINDINGS: Nonobstructive bowel gas pattern. Renal shadows are obscured by bowel gas. Pelvic basin calcifications are suggestive of probable phleboliths. Moderate to extensive colonic fecal retention. No renal calculi. No ureteral calculi. No pneumoperitoneum or pneumatosis. Bilateral hip arthroplasties. No fracture. IMPRESSION: 1. Nonobstructive bowel gas pattern. 2. Moderate to extensive colonic fecal retention. ACT 112: Negative or not required by law. The above report was generated using voice recognition software. It may contain grammatical, syntax or spelling errors. Electronically signed by: Tung Black M.D. 05/13/2024 8:39 AM Pending Results Patient Have Any Pending Studies at Discharge: No Discharge Instructions Given to Patient (Per Discharging Provider) You were evaluated for nausea and right sided chest pressure These symptoms seem to have been gastrointestinal-related and have resolved. We don't see any signs of serious illness. EKGs and blood tests did not show any signs of a heart attack. You had a normal stress test in January this year, which is reassuring. You might be constipated - a common cause of nausea and gas pain. Make sure you are having regular bowel movements. If you are constipated you can use 1 capful of miralax once or twice a day as needed and/or 1-2 tabs of senna per day -these medications are also available over the counter Your blood pressure has been running too high -continue the losartan -I sent a prescription for a low dose of another BP medication (amlodipine) -follow up with your primary care in 1-2 weeks for a blood pressure check It was a pleasure taking care of you in the hospital Luiza Peck MD Total Time Total Time Spent Total Time Spent (In Minutes): <30 minutes Coding Level of Care Code 45620 IN/OBS DISCH 30 MIN/LESS Diagnoses Nausea without vomiting R11.0 Chest pain R07.9 Chest pain type: unspecified Interstitial lung disease J84.9 Benign hypertension I10 Mild cognitive impairment G31.84 Chronic cerebral ischemia I67.82
[2024-05-13] MEDS ORDERED: ADVANCED PROBIOTIC 625 MG CAPSULE PO SCH (21:00)
--- NOTE | 2024-05-13 21:06 | Electrocardiogram Report ---
Test Reason : Blood Pressure : / mmHG Vent. Rate : 070 BPM Atrial Rate : 070 BPM P-R Int : 178 ms QRS Dur : 084 ms QT Int : 398 ms P-R-T Axes : 036 -04 048 degrees QTc Int : 429 ms Normal sinus rhythm Nonspecific ST abnormality Abnormal ECG When compared with ECG of 20-JAN-2024 18:42, No significant change was found Confirmed by Devante Rm ([id number]) on 05/13/2024 9:05:41 PM Referred By: REFERRED SELF Confirmed By:Devante Rm
[2024-05-14] MEDS ORDERED: ATORVASTATIN 10 MG TAB PO SCH (09:00)
== END 2024-05-13 10:47 | disposition home or self-care (01) ==
LOC: ED 19:18 → EDINP 19:18 → SUATTDRO 21:48 → EDINP 05-13 00:02

== ENCOUNTER 2024-11-29 21:25 | Inpatient (IN) ==
[2024-11-29 22:07] LABS: Hematocrit (blood only) 47.1 % (37.0-47.0); Hemoglobin 15.6 g/dl (12.0-16.0); Mean Corpuscular Hemoglobin 29.6 pg (25.0-34.0); Mean Corpuscular Hgb Conc 33.1 g/dL (32.0-36.0); Mean Corpuscular Volume 89.4 fL (80.0-100.0); Mean Platelet Volume 11.3 fL (9.4-12.4); Platelet Count 173 K/uL (130-400); RDW Coefficient of Variation 13.8 % (11.5-14.5); RDW Standard Deviation 44.9 fL (36.4-46.3); Red Blood Count 5.27 M/uL (4.20-5.40); White Blood Count 7.59 K/ul (4.8-10.8)
[2024-11-29 22:25] LABS: Albumin Globulin Ratio 1.5 (0.9-2); Albumin Level 4.9 gm/dl (3.4-5.0); BUN Creatinine Ratio 18.5 (10-20); Bilirubin,Total 0.4 mg/dl (0.2-1.0); Calcium 9.6 mg/dl (8.6-10.3); Creatinine Clr Calc Pharmacy 34.7 ml/min; Globulin 3.2 gm/dl (2.5-4.0); Potassium 4.4 mmol/L (3.5-5.1); Total Protein 8.1 gm/dl (6.0-8.3)
[2024-11-29 22:35] LABS: Basophils # (auto) 0.01 K/uL (0.00-0.20); Basophils % (auto) 0.1 %; Immature Granulocytes # (auto) 0.02 K/uL (0.01-0.20); Immature Granulocytes % (auto) 0.3 %; Lymphocytes # (auto) 0.25 K/uL (1.20-3.40); Lymphocytes % (auto) 3.3 %; Monocytes # (auto) 0.22 K/uL (0.11-0.59); Monocytes % (auto) 2.9 %; Neutrophils # (auto) 7.09 K/uL (1.40-6.50); Neutrophils % (auto) 93.4 %
[2024-11-29 22:49] LABS: Adenovirus PCR Not Detected (NotDetected); Bordetella parapertussis PCR Not Detected (NotDetected); Bordetella pertussis PCR Not Detected (NotDetected); Chlamydia pneumoniae PCR Not Detected (NotDetected); Coronavirus 229E PCR Not Detected (NotDetected); Coronavirus CoV-2 (COVID19)PCR Not Detected (NotDetected); Coronavirus HKU1 PCR Not Detected (NotDetected); Coronavirus NL63 PCR Not Detected (NotDetected); Coronavirus OC43PCR DETECTED (NotDetected); Human Metapneumovirus PCR Not Detected (NotDetected); Influenza A PCR Not Detected (NotDetected); Influenza B PCR Not Detected (NotDetected); Mycoplasma pneumoniae PCR Not Detected (NotDetected); Parainfluenza Virus 1 PCR Not Detected (NotDetected); Parainfluenza Virus 2 PCR Not Detected (NotDetected); Parainfluenza Virus 3 PCR Not Detected (NotDetected); Parainfluenza Virus 4 PCR Not Detected (NotDetected); Respiratory Syncytial VirusPCR Not Detected (NotDetected); Rhinovirus/Enterovirus PCR Not Detected (NotDetected)
--- NOTE | 2024-11-29 23:07 | Emergency Department Note ---
History of Present Illness General Chief complaint: Chest Pain Stated complaint: COUGH, HEADEACHE, CHEST PAIN, SOB Time Seen by Provider: 11/29/24 22:48 History of Present Illness Maximum Pain Intensity: 4 The patient is an 84-year-old female with a past medical history including interstitial lung disease, hypertension, mild cognitive impairment, dyslipidemia, lumbar DJD and dextroscoliosis, history of bilateral total hip arthroplasty, gastritis, GERD, TIA, spinal stenosis, chronic cerebral ischemia, carotid artery stenosis and status post laminectomy presents ER with daughter for evaluation of ongoing worsening cough chest pain and difficulty taking a deep breath for the past several days steadily getting worse. Patient saw the PCP on Tuesday was placed on steroid taper pack and had an x-ray. Daughter was concerned as symptoms are getting worse today and came in. Patient herself denies abdominal pain, vomiting, diarrhea, fevers, history of DVT or PE. She states she can have a CAT scan with contrast as long she is premedicated. No history of anaphylaxis. Home Medications Medication Instructions Recorded Confirmed Type acetaminophen 500 mg tablet 500 mg PO BID PRN Pain 06/17/20 11/26/24 History (Tylenol Extra Strength) L.acidophil-L.casei-B.bifid-B.longum-FOS 1 cap PO HS 02/08/22 11/26/24 History 2 billion cell-50 mg capsule (Probiotic Blend) atorvastatin 10 mg tablet 10 mg PO 3XWK #90 tabs 09/30/23 11/26/24 Rx metronidazole 0.75 % topical cream 1 applic topical BID PRN Skin 11/23/23 11/26/24 History Irritation galantamine 4 mg tablet 4 mg PO BIDM #60 tabs 05/21/24 11/26/24 Rx memantine 10 mg tablet 10 mg PO BID #180 tabs 05/21/24 11/26/24 Rx amlodipine 2.5 mg tablet 2.5 mg PO DAILY #90 tabs 06/13/24 11/26/24 Rx escitalopram oxalate 5 mg tablet 5 mg PO DAILY #30 tabs 08/14/24 11/26/24 Rx (Lexapro) methocarbamol 500 mg tablet 500 mg PO BID spasms #60 tabs 08/16/24 11/26/24 Rx lidocaine 5 % topical patch 1 patch topical .twice daily PRN 08/28/24 11/26/24 Rx Pain, Mild #15 ea pantoprazole 40 mg tablet,delayed 40 mg PO BID #60 tabs 09/24/24 11/26/24 Rx release albuterol sulfate 90 mcg/actuation 2 puff inhalation Q6H PRN 10/19/24 11/26/24 Rx aerosol inhaler shortness of breath or wheezing #8.5 grams benzonatate 100 mg capsule See Rx Instructions .Route 10/19/24 11/26/24 Rx .COMPLEX cough #30 caps famotidine 40 mg tablet 40 mg PO BID #180 tabs 10/24/24 11/26/24 Rx gabapentin 100 mg capsule 100 mg PO Q8H PRN pain #30 caps 10/24/24 11/26/24 Rx clopidogrel 75 mg tablet 75 mg PO QAM #90 tabs 10/31/24 11/26/24 Rx losartan 100 mg tablet 100 mg PO QAM #90 tabs 10/31/24 11/26/24 Rx prednisone 10 mg tablet See Rx Instructions PO DAILY #24 11/26/24 11/26/24 Rx tabs solifenacin 5 mg tablet (Vesicare) 5 mg PO DAILY 11/26/24 History Allergies Allergy/AdvReac Type Severity Reaction Status Date / Time Iodinated Contrast Media Allergy Intermediate hives Verified 11/26/24 15:38 latex Allergy Intermediate SKIN TEAR Verified 11/26/24 15:38 WHERE ADHESIVE WAS. 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 Gastritis Epigastric pain GERD (gastroesophageal reflux disease) Asthma INHALER PRN Spinal stenosis Sensorineural hearing loss (SNHL) of both ears Chronic cerebral ischemia (Acute) Carotid artery stenosis (Acute) Status post laminectomy @ [facility] 02/2021 Medical History Transient ischemic attack (TIA) Respiratory crackles at both lung bases Osteoarthritis Scoliosis On anticoagulant therapy Pulmonary embolism Anxiety Memory loss of unknown cause Hyperlipidemia 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) Rotator cuff tear arthropathy (02/25/13) Surgical History History of carpal tunnel release History of cataract surgery History of esophagogastroduodenoscopy (EGD) H/O breast surgery H/O repair of right rotator cuff History of total right hip replacement History of total left hip replacement History of appendectomy History of bilateral tubal ligation History of colonoscopy History of tooth extraction History of tonsillectomy and adenoidectomy History of carotid endarterectomy Family History Mother Family history of diabetes mellitus Myocardial infarction Family/Other Family history of diabetes mellitus MATERNAL AUNTS/UNCLES (TOTAL OF 3) Father Prostate cancer Cancer liver Brother Lung disease pulmonary fibrosis Other No family history of adverse response to anesthesia Denies family history of Ovarian cancer Breast cancer Colorectal cancer Social History Smoking Status: Never smoker Tobacco Type: Cigarettes Age Started Using Tobacco: 20; Age Quit Using Tobacco: 53; packs per day: 1; Second Hand Exposure: No; Do You Dip or Chew Tobacco: No; Hx Alcohol Use: No Hx Substance Use: No Preferred Language: Malagasy Communication Ability: Effective Visual Impairment: Limited Hearing Ability: Normal 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 Beliefs That Will Affect Care: None marital status: Current Living Situation: Spouse current occupational status: retired Feels Safe at Home: Yes Childhood Exposure to Second-Hand Smoke: Yes Diet: regular caffeine: Yes Dental Care, Regularly: Yes Physical Activity Frequency: Does not Exercise Seatbelt Use: always Sunscreen Use: Yes Do you think of yourself as: straight/heterosexual Assistive Devices: Glasses and Walker Review of Systems A total of 10 systems reviewed and were otherwise negative Physical Exam Vital Signs Vital Signs - 24 hr 11/29/24 21:28 11/29/24 21:32 11/29/24 23:01 Temperature 36.5 C Temperature Source Temporal Artery Scan Pulse Rate 90 67 Pulse Rate [Right Finger] Pulse Rhythm Respiratory Rate 20 Respiratory Effort / Characteristics Non-Labored Short of Breath Respiratory Depth Normal Respiratory Pattern Blood Pressure 172/78 H Blood Pressure [Right Arm] Blood Pressure Mean 109 Blood Pressure Mean [Right Arm] Blood Pressure Position [Right Arm] Pulse Oximetry 95 Oxygen Delivery Method Room Air Sepsis Recent Fever Within 48 Hours No Sepsis New/Unexplained Change in Mental Status No Sepsis Action Taken by Nursing No Action Required 11/29/24 23:48 11/29/24 23:48 11/29/24 23:48 Temperature Temperature Source Pulse Rate 65 Pulse Rate [Right Finger] 78 Pulse Rhythm Regular Respiratory Rate 18 18 Respiratory Effort / Characteristics Non-Labored Spontaneous Respiratory Depth Normal Respiratory Pattern Regular Blood Pressure Blood Pressure [Right Arm] 155/73 H Blood Pressure Mean Blood Pressure Mean [Right Arm] 100 Blood Pressure Position [Right Arm] Lying Pulse Oximetry 98 98 Oxygen Delivery Method Room Air Room Air Room Air Sepsis Recent Fever Within 48 Hours Sepsis New/Unexplained Change in Mental Status Sepsis Action Taken by Nursing VITALS: Vitals are noted on the nurse's note and reviewed by myself. Vital signs stable. GENERAL: Pleasant female coughing speaking in full sentences, in no acute distress, nondiaphoretic, well-developed well-nourished. SKIN: The skin was without rashes, erythema, edema, or bruising. There is no tenting of the skin. Capillary reflex less than 2 seconds. HEAD: Normocephalic atraumatic. EARS: External auditory canals clear EYES: Pupils equal round and reactive to light and accommodation. Conjunctivae without injection, sclerae without icterus. Extraocular movements intact. NOSE: Patent, no discharge. MOUTH: Mucous membranes moist. Pharynx without erythema or exudate. Uvula midline. Airway patent. Tongue does not deviate. NECK: Supple without nuchal rigidity. No lymphadenopathy. No thyromegaly. Cervical spine is nontender. No JVD. HEART: Regular rate and rhythm LUNGS: Mild diffuse inspiratory and end expiratory wheezes. No retractions or accessory muscle use. ABDOMEN: Positive bowel sounds x 4. Normal tympanic percussion. Soft, nontender, without masses or organomegaly. Gardner sign negative. No guarding or rebound tenderness. No CVA tenderness MUSCULOSKELETAL: No muscle atrophy, erythema, or edema noted. NEURO: Patient was alert and oriented to person place and time. Normal sensation to light and sharp touch. No focal neurological deficits. Course Administered Medications Discontinued Medications Albuterol (Albut/Ipratrop 3mg/0.5mg Neb 3 Ml Vial) 3 ml NEB NOW STA; Protocol Stop: 11/29/24 22:59 Last Admin: 11/29/24 23:52 Dose: 3 ml Documented By: GERMAINE Methylprednisolone (Methylprednisolone 125 Mg/2 Ml Vial) 125 mg IV NOW STA Stop: 11/29/24 22:59 Last Admin: 11/29/24 23:52 Dose: 125 mg Documented By: GERMAINE Medical Decision Making Medical Records Attestation: I reviewed the patient's medical records. Home Medications Current Medication List: was personally reviewed by me Laboratory Data Attestation: I reviewed the patient's lab results. 11/29/24 21:52 11/29/24 21:52 Lab Results 11/29/24 11/29/24 Range/Units 21:52 23:22 WBC 7.59 (4.8-10.8) K/ul RBC 5.27 (4.20-5.40) M/uL Hgb 15.6 (12.0-16.0) g/dl Hct 47.1 H (37.0-47.0) % MCV 89.4 (80.0-100.0) fL MCH 29.6 (25.0-34.0) pg MCHC 33.1 (32.0-36.0) g/dL RDW Std Deviation 44.9 (36.4-46.3) fL RDW Coeff of Yadira 13.8 (11.5-14.5) % Plt Count 173 (130-400) K/uL MPV 11.3 (9.4-12.4) fL Immature Gran % (Auto) 0.3 % Neut % (Auto) 93.4 % Lymph % (Auto) 3.3 % Sullivan % (Auto) 2.9 % Eos % (Auto) 0.0 % Baso % (Auto) 0.1 % Neut # (Auto) 7.09 H (1.40-6.50) K/uL Lymph # (Auto) 0.25 L (1.20-3.40) K/uL Sullivan # (Auto) 0.22 (0.11-0.59) K/uL Eos # (Auto) 0.00 (0.00-0.50) K/uL Baso # (Auto) 0.01 (0.00-0.20) K/uL Immature Gran # (Auto) 0.02 (0.01-0.20) K/uL D-Dimer Cancelled 530 H* Sodium 132 L (136-145) mmol/L Potassium 4.4 (3.5-5.1) mmol/L Chloride 97 L (98-107) mmol/L Carbon Dioxide 25 (21-32) mmol/L Anion Gap 10 (3-11) BUN 20 (6-23) mg/dl Creatinine 1.08 (0.6-1.2) mg/dl Est Cr Clr Drug Dosing 34.7 ml/min eGFR 50.02 BUN/Creatinine Ratio 18.5 (10-20) Glucose 233 H (70-99(Fasting)) mg/dl Calcium 9.6 (8.6-10.3) mg/dl Magnesium 2.1 (1.7-2.4) mg/dl Total Bilirubin 0.4 (0.2-1.0) mg/dl AST 22 (13-39) U/L ALT 24 (7-52) U/L Alkaline Phosphatase 76 (34-104) U/L Troponin I High Sens 5.0 (0-14) pg/ml B-Natriuretic Peptide 76 (0-100) pg/ml Total Protein 8.1 (6.0-8.3) gm/dl Albumin 4.9 (3.4-5.0) gm/dl Globulin 3.2 (2.5-4.0) gm/dl Albumin/Globulin Ratio 1.5 (0.9-2) Lipase 24 (11-82) U/L TSH 0.220 L (0.300-4.500) uIu/ml Free T4 0.99 (0.61-1.60) ng/dl Adenovirus (PCR) Not Detected (NotDetected) B. pertussis DNA (PCR) Not Detected (NotDetected) B.parapertussis DNA PCR Not Detected (NotDetected) C. pneumoniae DNA (PCR) Not Detected (NotDetected) Coronavirus OC43 (PCR) DETECTED A (NotDetected) Coronavirus HKU1 (PCR) Not Detected (NotDetected) Coronavirus 229E (PCR) Not Detected (NotDetected) SARS-CoV-2 (PCR) Not Detected (NotDetected) Coronavirus NL63 (PCR) Not Detected (NotDetected) Human Metapneumovir PCR Not Detected (NotDetected) Influenza Type A (PCR) Not Detected (NotDetected) Influenza Type B (PCR) Not Detected (NotDetected) M. pneumoniae (PCR) Not Detected (NotDetected) Parainfluenza 1 (PCR) Not Detected (NotDetected) Parainfluenza 2 (PCR) Not Detected (NotDetected) Parainfluenza 3 (PCR) Not Detected (NotDetected) Parainfluenza 4 (PCR) Not Detected (NotDetected) RSV (PCR) Not Detected (NotDetected) Entero/Rhino (PCR) Not Detected (NotDetected) Imaging Data Attestation: I personally reviewed and interpreted this imaging study as follows: Radiologist's Impression: Chest X-Ray 11/29/24 21:34 Exam(s): XR CXR 1 VIEW EXAM: XR Chest, 1 View CLINICAL HISTORY: Reason for exam: Chest pain, nonspecific. TECHNIQUE: Frontal view of the chest. COMPARISON: Prior chest x-ray from November 26, 2024.. FINDINGS: Lungs: Mild to moderate peribronchial thickening of the central and lower lobe bronchi with increased interstitial opacities in the right mid lung and lung base. There is a patchy opacity at the left lung base. Pleural space: Unremarkable. No pneumothorax. Heart: Unremarkable. No cardiomegaly. Mediastinum: Unremarkable. Normal mediastinal contour. Bones/joints: Unremarkable. No acute fracture. IMPRESSION: Bronchitis with left lower lobe infiltrate. No consolidation or pleural effusion. Electronically signed by: Raine Dia MD 11/30/24 00:03 AM [facility] Narrative Prior records/ancillary studies reviewed. Triage Nursing notes reviewed. Additional history obtained from the family. The patient's history was concerning for respiratory difficulties. Differential diagnosis: Etiologies such as infections, reactive airway disease, pneumonia, pneumothorax, COPD, CHF, cardiac ischemia, pulmonary embolism, musculoskeletal, gastrointestinal, as well as others were entertained. Physical examination: As above. ER treatment provided: An order was placed for continuous cardiac monitoring. The monitor shows a rate of 60-100 with a sinus rhythm per my interpretation. Solu-Medrol, nebulizer, Rocephin, Zithromax On reassessment the patient felt better. Diagnostic interpretation by me: The electrocardiogram was ordered for SOB. ECG: Normal sinus, normal intervals, no acute ST-T wave changes. Impression normal sinus rhythm independently interpreted by myself The labs Independently Interpreted by myself revealed no worrisome leukocytosis, negative troponin, positive coronavirus on [employer] Mild hyperglycemia without DKA most likely related to recent steroid use Blood cultures pending Imaging studies: Imaging was reviewed and read by radiology CURB Score: Confusion: 0 Urea (BUN > 19): 1 Respiratory Rate (>30/min): 0 Blood Pressure: Diastolic <60 or Systolic <90 0 Age (>= 65) 1 Total (0-1 low risk, 2-5 high risk): 2 Consultation: A consultation was placed with the hospitalist. The case was discussed and diagnostics were reviewed. The patient was evaluated in the ER for further treatment. This appears to be consistent with community-acquired pneumonia. Patient was started on antibiotics. Medicine was consulted and the case was discussed. Patient will be evaluated for admission. Curb score was high risk. She was not hypoxic. D-dimer was negative per the year study. Troponin was negative.. By the evaluation outlined above emergent etiologies such as CHF, cardiac ischemia, pulmonary embolism, reactive airway disease, pneumothorax, musculoskeletal, serious bacterial infections, as well as others were deemed relatively unlikely. The pt/daughter informed about the findings as listed above. All questions were answered and pleased with the treatment. The chart was completed utilizing [employer] Speech voice recognition software. Grammatical errors, random word insertions, pronoun errors, and incomplete sentences are an occassional consequence of this system due to software limitations, ambient noise, and hardware issues. Any formal questions or concerns about the content, text, or information contained within the body of this dictation should be directly addressed to the physician recovery assistant for clarification. Impression & Plan CAP (community acquired pneumonia), Coronavirus infection Discharge Plan Visit Data Chief Complaint: Chest Pain Stated Complaint: COUGH, HEADEACHE, CHEST PAIN, SOB ED Provider: Jeanne Walker ED Midlevel Provider: No Bocanegra Discharge Problem: CAP (community acquired pneumonia), Coronavirus infection Patient Disposition: Admitted As Inpatient Condition: Good Forms Stand Alone Forms: My [facility] [employer] Prescriptions Prescriptions: No Action atorvastatin 10 mg tablet 10 mg PO 3XWK Qty: 90 3RF amlodipine 2.5 mg tablet 2.5 mg PO DAILY Qty: 90 1RF escitalopram oxalate [Lexapro] 5 mg tablet 5 mg PO DAILY Qty: 30 2RF methocarbamol 500 mg tablet 500 mg PO BID Qty: 60 5RF lidocaine 5 % adhesive patch,medicated 1 patch topical .twice daily PRN (Reason: Pain, Mild) Qty: 15 0RF Rx Instructions: leave on most painful area for up to 12 hrs pantoprazole 40 mg tablet,delayed release (DR/EC) 40 mg PO BID Qty: 60 5RF clopidogrel 75 mg tablet 75 mg PO QAM Qty: 90 1RF losartan 100 mg tablet 100 mg PO QAM Qty: 90 3RF memantine 10 mg tablet 10 mg PO BID Qty: 180 3RF galantamine 4 mg tablet 4 mg PO BIDM Qty: 60 1RF Rx Instructions: administer with AM and PM meals gabapentin 100 mg capsule 100 mg PO Q8H PRN (Reason: pain) Qty: 30 2RF famotidine 40 mg tablet 40 mg PO BID Qty: 180 1RF solifenacin [Vesicare] 5 mg tablet 5 mg PO DAILY prednisone 10 mg tablet See Rx Instructions PO DAILY Qty: 24 0RF Rx Instructions: 4 tab po daily x 3 days; 3 tab po daily x 3 days; 1 tab po daily x 3 days albuterol sulfate 90 mcg/actuation HFA aerosol inhaler 2 puff inhalation Q6H PRN (Reason: shortness of breath or wheezing) Qty: 8.5 0RF benzonatate 100 mg capsule See Rx Instructions .Route .COMPLEX Qty: 30 0RF Rx Instructions: take one to two tablets three times a day for cough (may make you sleepy) metronidazole 0.75 % cream 1 applic topical BID PRN (Reason: Skin Irritation) acetaminophen [Tylenol Extra Strength] 500 mg tablet 500 mg PO BID PRN (Reason: Pain) Patient Comments: Patient states she took 4 doses yesterday Probiotic Blend 2 billion cell-50 mg Capsule 1 cap PO HS Referrals Referrals: Jess Hirsch MD [Primary Care Provider] - Discharge Problem: CAP (community acquired pneumonia) Qualifiers: Laterality: left Lung location: lower lobe of lung Qualified Code(s): J18.9 - Pneumonia, unspecified organism
[2024-11-29 23:29] LABS: Magnesium 2.1 mg/dl (1.7-2.4)
[2024-11-29 23:46] LABS: Thyroid Stimulating Hormone 0.22 uIu/ml (0.300-4.500)
[2024-11-29] MEDS: methylPREDNISolone 125 MG/2 ML VIAL IV STA (23:52)
[2024-11-29] MEDS: ALBUT/IPRATROP 3MG/0.5MG NEB 3 ML VIAL NEB STA (23:52)
--- NOTE | 2024-11-30 00:04 | XRay Report ---
Exam(s): XR CXR 1 VIEW EXAM: XR Chest, 1 View CLINICAL HISTORY: Reason for exam: Chest pain, nonspecific. TECHNIQUE: Frontal view of the chest. COMPARISON: Prior chest x-ray from November 26, 2024.. FINDINGS: Lungs: Mild to moderate peribronchial thickening of the central and lower lobe bronchi with increased interstitial opacities in the right mid lung and lung base. There is a patchy opacity at the left lung base. Pleural space: Unremarkable. No pneumothorax. Heart: Unremarkable. No cardiomegaly. Mediastinum: Unremarkable. Normal mediastinal contour. Bones/joints: Unremarkable. No acute fracture. IMPRESSION: Bronchitis with left lower lobe infiltrate. No consolidation or pleural effusion. Electronically signed by: Raine Dia MD 11/30/24 00:03 AM
[2024-11-30 00:19] LABS: D Dimer 530 ug/L FEU (0-500)
[2024-11-30 00:33] LABS: T4 Free Thyroxine 0.99 ng/dl (0.61-1.60)
--- NOTE | 2024-11-30 00:36 | History & Physical Report ---
Date of Service November 30, 2024 Assessment & Plan (1) Bronchitis: (2) Coronavirus infection: (3) Interstitial lung disease: (4) Hyponatremia: (5) Mild cognitive impairment: Plan Patient is an 84-year-old female with past medical history of interstitial lung disease, hypertension, hyperlipidemia, cognitive impairment, TIA, provoked PE after hip surgery. Patient has had a worsening cough for 1 week and failed outpatient treatment with a prednisone taper via PCP. She presented to the ED due to worsening, wet cough, along with rib pain when coughing. She is being admitted for bronchitis secondary to coronavirus OC 43. #Bronchitis/coronavirus OC 43 infection/ interstitial lung disease Bronchitis secondary to coronavirus infection afebrile, VSS, non-hypoxic on admission No leukocytosis, BNP negative d dimer essentially negative (530) - very low suspicion for PE at this time, nonhypoxic, VSS, no dyspnea, rib pain associated with coughing/musculoskeletal lactate 2.9, will trend - received iv steroids prior to lactate level CXR interpreted as bronchitis with LLL infiltrate; personally interpreted and reviewed, similar to previous, left lower lobe likely atelectasis - Do not feel patient has pneumonia at this time however procalcitonin ordered Covered with Rocephin and azithromycin in ED; will be covered for 24 hours - Defer further Rocephin use however will continue azithromycin IV for anti- inflammatory effects Given Solu-Medrol 125 IV in ED; continue Solu-Medrol 40 Mg daily, taper as tolerated DuoNeb every 2 hours as needed Tessalon Perles, Mucinex, Tylenol prn, Incentive spirometry Follow blood cultures #hyponatremia Sodium 132 on admission suspect 2/2 decreased p.o. intake Other electrolytes stable If sodium remains low, can consider adding urine osmole, serum osmole, urine NA IVF resuscitation with LR at 80 mL/hour overnight Trend BMP #mild cognitive impairment Follows with neurology higher risk for hospital acquired delirium with IV steroids - promote good sleep wake cycles, melatonin prn continue galantamine and memantine Chronic stable diagnoses: HTN continue amlodipine and losartan HLD continue statin 3 times a week Hx TIA continue Plavix GERD continue famotidine and PPI overactive bladder - continue solifenacin VTE ppx: Lovenox Diet: regular Dispo: med surg Patient's daughter, Blessing, to be updated with any additional decisions or changes in plans. Admission and Anticipated Discharge Date Admission Date: 11/30/24 History of Present Illness Chief Complaint: chest pain Primary Care Provider: Jess Hirsch MD Patient is an 84-year-old female with past medical history of interstitial lung disease, hypertension, hyperlipidemia, cognitive impairment, TIA, provoked PE after hip surgery. Patient has had a worsening cough for 1 week and failed outpatient treatment with a prednisone taper via PCP. She presented to the ED due to worsening, wet cough, along with rib pain when coughing. She is being admitted for bronchitis secondary to coronavirus OC 43. Patient seen at bedside with her daughter, Blessing present. Following history was provided by patient's daughter Blessing. She stated that the patient has a chronic cough that has been worse for approximately 1 week. Over the last weekend it became bad enough that they went to her PCP on Tuesday. The PCP prescribed a prednisone taper starting with 40 Mg daily x 3 days, transitioning to 30, etc.. Patient also had a headache prior to arrival that is now resolved. Their biggest concern was that the patient had significant rib pain when coughing and that her daughter holds her chest when coughing to help with this. The patient also endorses a runny nose. She has been taking Mucinex at home as well as using her albuterol inhaler multiple times a day. She has had a decreased p.o. intake for several days due to the sickness. Patient denies fever, chills, dizziness, lightheadedness, sore throat, sputum production, dyspnea, dyspnea on exertion, chest pain, abdominal pain, nausea, vomiting, diarrhea. She does not use nicotine products or drink alcohol. She does not use oxygen at baseline. She did take her home medications today including her evening medications. She is still on Plavix for history of TIA and PE that was provoked by hip surgery many years ago. She wishes to be DNR/DNI status. Patient's daughter, Blessing, to be updated with any additional decisions or changes in plans. Patient has cognitive impairment that is worsening and there is to have an appointment with her neurologist next week. Allergies Allergy/AdvReac Type Severity Reaction Status Date / Time Iodinated Contrast Media Allergy Intermediate hives Verified 11/26/24 15:38 latex Allergy Intermediate SKIN TEAR Verified 11/26/24 15:38 WHERE ADHESIVE WAS. PAPER TAPE OK promethazine AdvReac Intermediate DELIRIUM Verified 11/26/24 15:38 Home Medications Medication Instructions Recorded Confirmed Type acetaminophen 500 mg tablet 500 mg PO BID PRN Pain 06/17/20 11/30/24 History (Tylenol Extra Strength) L.acidophil-L.casei-B.bifid-B.longum-FOS 1 cap PO HS 02/08/22 11/30/24 History 2 billion cell-50 mg capsule (Probiotic Blend) atorvastatin 10 mg tablet 10 mg PO 3XWK #90 tabs 09/30/23 11/30/24 Rx metronidazole 0.75 % topical cream 1 applic topical BID PRN Skin 11/23/23 11/30/24 History Irritation galantamine 4 mg tablet 4 mg PO BIDM #60 tabs 05/21/24 11/30/24 Rx memantine 10 mg tablet 10 mg PO BID #180 tabs 05/21/24 11/30/24 Rx amlodipine 2.5 mg tablet 2.5 mg PO DAILY #90 tabs 06/13/24 11/30/24 Rx escitalopram oxalate 5 mg tablet 5 mg PO DAILY #30 tabs 08/14/24 11/30/24 Rx (Lexapro) methocarbamol 500 mg tablet 500 mg PO BID spasms #60 tabs 08/16/24 11/30/24 Rx lidocaine 5 % topical patch 1 patch topical .twice daily PRN 08/28/24 11/30/24 Rx Pain, Mild #15 ea pantoprazole 40 mg tablet,delayed 40 mg PO BID #60 tabs 09/24/24 11/30/24 Rx release albuterol sulfate 90 mcg/actuation 2 puff inhalation Q6H PRN 10/19/24 11/30/24 Rx aerosol inhaler shortness of breath or wheezing #8.5 grams benzonatate 100 mg capsule See Rx Instructions .Route 10/19/24 11/30/24 Rx .COMPLEX cough #30 caps famotidine 40 mg tablet 40 mg PO BID #180 tabs 10/24/24 11/30/24 Rx gabapentin 100 mg capsule 100 mg PO Q8H PRN pain #30 caps 10/24/24 11/30/24 Rx clopidogrel 75 mg tablet 75 mg PO QAM #90 tabs 10/31/24 11/30/24 Rx losartan 100 mg tablet 100 mg PO QAM #90 tabs 10/31/24 11/30/24 Rx prednisone 10 mg tablet See Rx Instructions PO DAILY #24 11/26/24 11/30/24 Rx tabs solifenacin 5 mg tablet (Vesicare) 5 mg PO DAILY 11/26/24 11/30/24 History Past Med/Surg History Problem List Hyponatremia Bronchitis Coronavirus infection (Acute) CAP (community acquired pneumonia) (Acute) Hypertension Mood disorder Cerumen impaction Interstitial lung disease Chronic coughing Benign hypertension (Chronic 02/25/13) Postmenopausal atrophic vaginitis (Acute) Mild cognitive impairment (Acute) Lumbar radiculopathy (Acute) Generalized osteoarthritis of multiple sites (Acute) Dyslipidemia (Chronic) DJD (degenerative joint disease), lumbar Arthritis of knee, left History of bilateral total hip arthroplasty Gastritis Epigastric pain GERD (gastroesophageal reflux disease) Asthma INHALER PRN Spinal stenosis Sensorineural hearing loss (SNHL) of both ears Chronic cerebral ischemia (Acute) Carotid artery stenosis (Acute) Status post laminectomy @ [facility] 02/2021 Medical History Transient ischemic attack (TIA) Respiratory crackles at both lung bases Osteoarthritis Scoliosis On anticoagulant therapy Pulmonary embolism Anxiety Memory loss of unknown cause Hyperlipidemia 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) Rotator cuff tear arthropathy (02/25/13) Surgical History History of carpal tunnel release History of cataract surgery History of esophagogastroduodenoscopy (EGD) H/O breast surgery H/O repair of right rotator cuff History of total right hip replacement History of total left hip replacement History of appendectomy History of bilateral tubal ligation History of colonoscopy History of tooth extraction History of tonsillectomy and adenoidectomy History of carotid endarterectomy Family History Mother Family history of diabetes mellitus Myocardial infarction Family/Other Family history of diabetes mellitus MATERNAL AUNTS/UNCLES (TOTAL OF 3) Father Prostate cancer Cancer liver Brother Lung disease pulmonary fibrosis Other No family history of adverse response to anesthesia Denies family history of Ovarian cancer Breast cancer Colorectal cancer Social History Smoking Status: Former smoker Tobacco Type: Cigarettes Age Started Using Tobacco: 20; Age Quit Using Tobacco: 53; packs per day: 1; Second Hand Exposure: No; Do You Dip or Chew Tobacco: No; Tobacco Cessation Education Requested by Patient: No Hx Alcohol Use: Yes Alcohol type: wine Alcohol Intake Frequency: Monthly or Less Hx Substance Use: No Preferred Language: Puerto [place]ican Communication Ability: Effective Visual Impairment: Limited Hearing Ability: Normal Rn Heart Required: No Beliefs That Will Affect Care: None marital status: Current Living Situation: Family Current Living Situation Comment: With daughter current occupational status: retired Other Information That Helps Us Care for You: No Feels Safe at Home: Yes Safety Concerns: Feels Safe At This Time Childhood Exposure to Second-Hand Smoke: Yes Diet: regular caffeine: Yes Dental Care, Regularly: Yes Physical Activity Frequency: Does not Exercise Seatbelt Use: always Sunscreen Use: Yes Do you think of yourself as: straight/heterosexual Assistive Devices: Glasses and Walker Review of Systems Review of Systems: see HPI Physical Exam Physical Exam: The patient is awake, alert and oriented 3, well developed and well nourished, normocephalic and atraumatic, in no acute distress. Non-toxic appearing. HEENT- EOMI, mucous membranes dry. Hearing grossly intact. Heart-normal S1 and S2. No murmurs, rubs or gallops. Lungs-wheezing bilaterally, no respiratory distress, no accessory muscle use. Abdomen-normal bowel sounds and soft. No ascites noted. Non-tender. Extremities- no clubbing, cyanosis, or edema. Rheumatologic-normal range of motion. Psychiatric-normal affect. Results & Data Results & Data Vital Signs (Past 12 Hours) Vital Signs Temp Pulse Pulse Resp BP BP Pulse Ox 11/29/24 23:48 65 18 98 11/29/24 23:48 78 18 155/73 H 98 11/29/24 23:48 11/29/24 23:01 67 11/29/24 21:28 36.5 C 90 20 172/78 H 95 O2 Del Method 11/29/24 23:48 Room Air 11/29/24 23:48 Room Air 11/29/24 23:48 Room Air 11/29/24 23:01 11/29/24 21:28 Room Air Laboratory Results Reviewed CBC, CMP, Pro-Carlos, mag, d dimer, trop, bnp, tsh Diagnostic Findings reviewed cxr Medications Administered ed - solu-Medrol 125 Mg IV, DuoNeb x 1, Rocephin 2G IV, Zithromax 500 Mg p.o. ECG Additional Comments: NSR rate 90 qtc 428 Code Status & VTE Plan Code Status dnr/dni VTE Prophylaxis Plan VTE Prophylaxis will be ordered: Yes Supervising Physician Co-Signing Physician Notes Attending addendum: I have physically seen this patient, have supervised the ABDON's activities, and agree with the H&P unless as otherwise noted. Assessment and Plan: The patient is an 84-year-old female with past medical history including hypertension, hyperlipidemia, mild cognitive impairment, TIA, history of provoked PE after hip surgery, COPD, mood disorder, SNHL bilaterally, carotid artery stenosis, and status post laminectomy. She presents to the emergency department with worsening wet cough, rib cage pain. She was found to be coronavirus OC 43 positive on [employer] testing, and is being evaluated for bronchitis and interstitial lung disease treatment #Bronchitis/coronavirus OC 43/interstitial lung disease- Lactate 2.9 with follow-up pending Chest x-ray with suggestion of bronchitis with left lower lobe infiltrate versus atelectasis Given ceftriaxone and azithromycin IV from the ED, which should cover patient for 24 hours until follow-up evaluation is completed Continue azithromycin 500 mg IV daily Given Solu-Medrol 125 mg IV in the ED, will continue 40 mg IV daily DuoNebs every 2 hours as needed Tessalon Perles 100 mg p.o. 3 times daily. Cough Mucinex 600 mg by mouth every 12 hours Acetaminophen 650 mg by mouth every 6 hours as needed for mild pain or fever Incentive spirometry Follow sputum and blood cultures Hyponatremia- Sodium 132 on admission LR at 80 mL/h x 1 L recheck laboratories in the a.m. Mild cognitive impairment- Following with neurology in the outpatient setting Continue galantamine and Namenda Remaining orders and medications as noted PG Care Time/CCT Total # of Minutes Spent Total Time Spent with Patient: Total time spent is greater than 50% in coordination of care (as documented) at patient's floor/unit and/or counseling patient: Coding Level of Care Code 69873 INT INP/OBS CARE 75MIN Diagnoses Bronchitis J40 Coronavirus infection B34.2 Interstitial lung disease J84.9 Hyponatremia E87.1 Mild cognitive impairment G31.84
--- NOTE | 2024-11-30 00:37 | Emergency Department Note ---
ED Visit Note I was consulted by the Advanced Practice Provider, No Bocanegra PA-C. I performed a substantive portion of the visit. This includes aspects of: History: Patient is an 84-year-old female presenting with shortness of breath and cough for the last 2 weeks. Reports that the last week in the last few days been significantly worse. Does not wear any supplemental oxygen at baseline. Denies any chest pain with or shortness of breath. MDM: - Laboratory workup interpreted myself showed normal WBC; elevated D-dimer; hyponatremia (Na 132); elevated glucose (233); normal BNP; normal troponin; normal lipase; low TSH with normal T4. - CXR image interpreted myself need for pulmonary edema, per interpretation. Radiology notes bronchitis with left lower lobe infiltrate, but state no consolidation or pleural effusion. - Viral respiratory panel positive for coronavirus type OC43 - Blood cultures ordered - Patient was given a DuoNeb treatment in the emergency department. Given 125 mg IV Solu-Medrol. Rocephin and Zithromax were ordered for pneumonia coverage. - CT PE not obtained, as with age-adjustment, patient's D-dimer is within normal limits. - Patient to be admitted to hospitalist service .
[2024-11-30] MEDS ORDERED: GABAPENTIN 100 MG CAP PO PRN (02:20)
[2024-11-30] MEDS ORDERED: DOCUSATE SODIUM 100 MG CAP PO PRN (02:20)
[2024-11-30] MEDS ORDERED: ONDANSETRON INJ 2 MG/ML 2 ML VIAL IV PRN (02:20)
[2024-11-30] MEDS: cefTRIAXone SODIUM 2,000 MG/50 ML BAG IV STA (02:31)
[2024-11-30] MEDS: ACETAMINOPHEN 325 MG TAB PO PRN (02:36)
[2024-11-30] MEDS: LACTATED RINGER'S 1,000 ML IV SCH (03:39)
[2024-11-30] MEDS: AZITHROMYCIN 250 MG TAB PO ONE ×3 (03:39→03:42)
[2024-11-30] MEDS ORDERED: methylPREDNISolone 40 MG in SYRINGE 0 ML IV SCH (09:00)
[2024-11-30] MEDS: CLOPIDOGREL BISULFATE 75 MG TAB PO SCH (09:50)
[2024-11-30] MEDS: AZITHROMYCIN 250 MG TAB PO SCH (09:50)
[2024-11-30] MEDS: PANTOprazole 40 MG TAB PO SCH (09:50)
[2024-11-30] MEDS: guaiFENesin 600 MG TABCR PO SCH (09:50)
[2024-11-30] MEDS: GALANTAMINE HYDROBROMIDE 4 MG TAB PO SCH (09:50)
[2024-11-30] MEDS: FAMOTIDINE 40 MG TABLET PO SCH (09:50)
[2024-11-30] MEDS: ESCITALOPRAM OXALATE 10 MG TAB PO SCH (09:51)
[2024-11-30] MEDS: BENZONATATE 100 MG CAPSULE PO SCH (09:51)
[2024-11-30] MEDS: ENOXAPARIN INJ 40 MG/0.4 ML SYR SQ SCH (09:52)
[2024-11-30] MEDS: LOSARTAN POTASSIUM 50 MG TAB PO SCH (09:53)
[2024-11-30] MEDS: ATORVASTATIN 10 MG TAB PO SCH (09:53)
[2024-11-30] MEDS: MEMANTINE HCL 10 MG TAB PO SCH (09:53)
[2024-11-30] MEDS: OXYBUTYNIN CHLORIDE XL 5 MG TABCR PO SCH (09:54)
[2024-11-30] MEDS: amLODIPine BESYLATE 5 MG TAB PO SCH (09:54)
[2024-11-30] MEDS: methylPREDNISolone 40 MG in SYRINGE 0 ML IV SCH (11:00)
--- NOTE | 2024-11-30 12:40 | Electrocardiogram Report ---
Test Reason : Blood Pressure : */* mmHG Vent. Rate : 90 BPM Atrial Rate : 90 BPM P-R Int : 156 ms QRS Dur : 76 ms QT Int : 350 ms P-R-T Axes : 59 -22 57 degrees QTcB Int : 428 ms Normal sinus rhythm Possible Left atrial enlargement Borderline ECG When compared with ECG of 23-Sep-2024 14:57, T wave amplitude has increased in Anterior leads Confirmed by Alfredo Gramajo ([id number]) on 11/30/2024 12:40:33 PM Referred By: REFERRED SELF Confirmed By: Alfredo Gramajo
--- NOTE | 2024-11-30 18:02 | History & Physical Bridge Note ---
Date of Service November 30, 2024 History & Physical Bridge Note I have examined the patient, reviewed the History & Physical and in the interval since the performance of the History & Physical I have noted the following changes of clinical significance: Patient reports she is feeling better and her cough is improved since admission. She is eating her dinner when I saw her. Her daughter reports the patient is still complaining of some left anterior rib pain from coughing. Patient denies nausea or diarrhea. No other concerns. Vitals reviewed Gen: AAOx2, NAD HEENT: Anicteric sclerae CV: RRR no mgr nl S1S2 Pulm: Bibasilar crackles, no wheezes or rales Abd: +BS soft NT ND no masses or hernias, positive tenderness palpation over left anterior lower rib cage Ext: No edema Skin: No rashes, warm/dry Neuro: Full strength throughout 84-year-old female here with coronavirus and bronchitis with acute respiratory failure with hypoxia. This is in the setting of interstitial lung disease. Chest x-ray with bronchitis and possible left lower lobe infiltrate but also has chronic scarring in the bases of the lungs Continue azithromycin, IV steroids Add lidocaine patch for rib pain from coughing Try to wean off oxygen and possible discharge home tomorrow, two-step walk test prior to discharge
[2024-11-30] MEDS: LIDOCAINE 5% 1 PATCH TD SCH (18:46)
[2024-12-01] MEDS: ALBUT/IPRATROP 3MG/0.5MG NEB 3 ML VIAL NEB PRN (04:48)
[2024-12-01 07:29] LABS: Basophils # (auto) 0.02 K/uL (0.00-0.20); Basophils % (auto) 0.2 %; Hematocrit (blood only) 40.7 % (37.0-47.0); Hemoglobin 13.5 g/dl (12.0-16.0); Immature Granulocytes # (auto) 0.05 K/uL (0.01-0.20); Immature Granulocytes % (auto) 0.5 %; Lymphocytes # (auto) 1.26 K/uL (1.20-3.40); Lymphocytes % (auto) 12.3 %; Mean Corpuscular Hemoglobin 29.3 pg (25.0-34.0); Mean Corpuscular Hgb Conc 33.2 g/dL (32.0-36.0); Mean Corpuscular Volume 88.3 fL (80.0-100.0); Mean Platelet Volume 11.2 fL (9.4-12.4); Monocytes # (auto) 1.31 K/uL (0.11-0.59); Monocytes % (auto) 12.8 %; Neutrophils # (auto) 7.59 K/uL (1.40-6.50); Neutrophils % (auto) 74.2 %; Platelet Count 154 K/uL (130-400); RDW Coefficient of Variation 13.9 % (11.5-14.5); RDW Standard Deviation 44.5 fL (36.4-46.3); Red Blood Count 4.61 M/uL (4.20-5.40); White Blood Count 10.23 K/ul (4.8-10.8)
[2024-12-01 07:54] LABS: Albumin Globulin Ratio 1.3 (0.9-2); Albumin Level 3.8 gm/dl (3.4-5.0); Bilirubin,Total 0.4 mg/dl (0.2-1.0); Calcium 8.9 mg/dl (8.6-10.3); Creatinine Clr Calc Pharmacy 39.1 ml/min; Globulin 2.9 gm/dl (2.5-4.0); Total Protein 6.7 gm/dl (6.0-8.3)
--- NOTE | 2024-12-01 12:48 | Hospitalist Progress Note ---
Date of Service December 01, 2024 Assessment & Plan (1) Bronchitis: (2) Coronavirus infection: (3) Interstitial lung disease: (4) Mild cognitive impairment: Plan Patient is an 84-year-old female with H/H of ILD, HTN, HLD, MCI, TIA, provoked PE after hip surgery here with worsening cough for 1 week and failed outpatient treatment with a prednisone taper via PCP. She presented to the ED due to worsening, wet cough, along with rib pain when coughing. She is being admitted for bronchitis secondary to coronavirus OC 43 and acute respiratory failure with hypoxia #Bronchitis/coronavirus OC 43 infection/interstitial lung disease/acute respiratory failure with hypoxia-continues to be requiring 2 L nasal cannula O2, with significant cough causing left sided rib pain. Lactate was elevated on admission due to hypoxia and not septic shock. CXR interpreted as bronchitis with LLL infiltrate, procalcitonin negative, but with interstitial lung disease and history of exposure to Pseudomonas (her had multiple Pseudomonas infections prior to his recently), will change azithromycin to levofloxacin -Check sputum culture -Continue DuoNebs but make scheduled rather than as needed -Discontinue Tessalon Perles and start guaifenesin DM 10 mL p.o. every 6 hours scheduled -Continue to follow blood cultures which remain no growth to date -Continue to wean off supplemental O2 and check two-step walk test prior to discharge -Lidocaine patch to ribs for pain as well as as needed Tylenol -Continue IV Solu-Medrol but increased to 40 Mg twice daily #hyponatremia-sodium 132 on admission, suspect 2/2 decreased p.o. intake. Sodium is now normalized #HTN/hyperlipidemia-blood pressures are normal -Continue home losartan, amlodipine, atorvastatin #mild cognitive impairment-Follows with neurology-higher risk for hospital acquired delirium -continue galantamine and memantine #Hx TIA continue Plavix, statin #GERD continue famotidine and PPI #Overactive bladder - continue solifenacin although this is generally contraindicated in the elderly due to fall risk VTE ppx: Lovenox Dispo: Continued stay on medical/surgical unit, possible discharge to home on 12/02. Discussed care with daughter on the phone on 12/01 Admission and Anticipated Discharge Date Admission Date: November 30, 2024 Subjective Pt still coughing quite a bit, has pain in her left ribs from cough. Remains on 2LNC O2. Physical Exam Constitutional: WD/WN, vitals as above Respiratory: normal respiratory effort and + cough Auscultation: + wheezes (Bilateral expiratory wheezes); no crackles, no rales and no rhonchi Cardiovascular: RRR, no murmur, no edema Gastrointestinal (Abdomen): normal bowel sounds, soft, nontender, no hepatosplenomegaly Psychiatric: Orientation: alert, oriented to person, oriented to place and cooperative; + not oriented to time Results & Data Results & Data Vital Signs (Past 12 Hours) Vital Signs Temp Pulse Resp BP Pulse Ox O2 Del Method O2 Flow Rate 12/01/24 10:21 70 20 94 Nasal Cannula 2.5 12/01/24 07:48 36.6 C 61 16 172/70 H 97 Nasal Cannula 2.5 12/01/24 07:10 Nasal Cannula 2 12/01/24 04:48 59 L 18 96 Nasal Cannula 2 Laboratory Results CBC, CMP, blood cultures reviewed PG Care Time/CCT Total # of Minutes Spent Total Time Spent with Patient: Total time spent is greater than 50% in coordination of care (as documented) at patient's floor/unit and/or counseling patient: Coding Level of Care Code 74017 SUB INP/OBS CARE 2/35MIN Diagnoses Bronchitis J40 Coronavirus infection B34.2 Interstitial lung disease J84.9 Mild cognitive impairment G31.84
[2024-12-01] MEDS: guaiFENesin/DEXTROM SYRUP 200MG/20MG 10ML UDC PO SCH (14:03)
[2024-12-01] MEDS: levoFLOXacin 750 MG TAB PO SCH (14:03)
[2024-12-01] MEDS: ALBUT/IPRATROP 3MG/0.5MG NEB 3 ML VIAL NEB SCH (14:46)
[2024-12-01] MEDS: METHOCARBAMOL 500 MG TABLET PO PRN (19:30)
[2024-12-01] MEDS: methylPREDNISolone 40 MG in SYRINGE 0 ML IV SCH (19:30)
[2024-12-01] MEDS: MELATONIN 3 MG TAB PO PRN (23:48)
[2024-12-02 07:43] VITALS: BP 125/69; TEMP 97.3
[2024-12-02 09:45] VITALS: RESP 18
[2024-12-02 11:38] VITALS: PULSE 91
--- NOTE | 2024-12-02 12:14 | Discharge Summary ---
Discharge Summary Date of Service December 02, 2024 Principal Dx & Hospital Course #1 = Principal Diagnosis (1) Bronchitis: (2) Coronavirus infection: (3) Interstitial lung disease: (4) Mild cognitive impairment: Plan Patient is an 84-year-old female with H/H of ILD, HTN, HLD, MCI, TIA, provoked PE after hip surgery here with worsening cough for 1 week and failed outpatient treatment with a prednisone taper via PCP. She presented to the ED due to worsening, wet cough, along with rib pain when coughing. She is being admitted for bronchitis secondary to coronavirus OC 43 and acute respiratory failure with hypoxia #Bronchitis/coronavirus OC 43 infection/interstitial lung disease/acute respiratory failure with hypoxia-initially requiring 2 L nasal cannula O2 but weaned to room air at rest and needs 1L NC supplemental O2 with exertion on discharge. With significant cough causing left sided rib pain which is now improved with scheduled guaifenesin dextromethorphan every 6 hours and scheduled bronchodilator nebulizer treatments. Lactate was elevated on admission due to hypoxia and not septic shock. CXR interpreted as bronchitis with LLL infiltrate, procalcitonin negative, but with interstitial lung disease and history of exposure to Pseudomonas (her had multiple Pseudomonas infections prior to his recently), changed azithromycin to levofloxacin Sputum culture was not collected prior to discharge She is much improved and stable for discharge -Albuterol inhaler every 6 hours scheduled x 1 week after discharge and then as needed after that -Discontinue Tessalon Perles and started guaifenesin DM 10 mL p.o. every 6 hours scheduled x 1 week and then as needed after that -Continue to follow blood cultures which remain no growth to date -Received IV Solu-Medrol while admitted and will finish out prednisone burst after discharge with prednisone 40 mg p.o. daily x 3 days then 20 mg p.o. daily x 3 days, then stop -Lidocaine patch to ribs for pain as well as as needed Tylenol #hyponatremia-sodium 132 on admission, suspect 2/2 decreased p.o. intake. Sodium is now normalized #HTN/hyperlipidemia-blood pressures are normal -Continue home losartan, amlodipine, atorvastatin #mild cognitive impairment-Follows with neurology-higher risk for hospital acquired delirium-had some mild delirium on the morning of discharge which resolved with redirection -continue galantamine and memantine #Hx TIA continue Plavix, statin #GERD continue famotidine and PPI #Overactive bladder - continue solifenacin although this is generally contraindicated in the elderly due to fall risk-defer to PCP as to whether to continue on VTE ppx: Lovenox Dispo: DC to home with supplemental O2. Discussed care with daughter at the bedside on 12/02 Notes For Next Care Provider Medication Changes From Visit Added prednisone burst Added levofloxacin 750 Mg p.o. every other day x 3 more doses Added guaifenesin with dextromethorphan every 6 hours Admission HPI Per Admitting Provider Patient is an 84-year-old female with past medical history of interstitial lung disease, hypertension, hyperlipidemia, cognitive impairment, TIA, provoked PE after hip surgery. Patient has had a worsening cough for 1 week and failed outpatient treatment with a prednisone taper via PCP. She presented to the ED due to worsening, wet cough, along with rib pain when coughing. She is being admitted for bronchitis secondary to coronavirus OC 43. Patient seen at bedside with her daughter, Blessing present. Following history was provided by patient's daughter Blessing. She stated that the patient has a chronic cough that has been worse for approximately 1 week. Over the last weekend it became bad enough that they went to her PCP on Tuesday. The PCP prescribed a prednisone taper starting with 40 Mg daily x 3 days, transitioning to 30, etc.. Patient also had a headache prior to arrival that is now resolved. Their biggest concern was that the patient had significant rib pain when coughing and that her daughter holds her chest when coughing to help with this. The patient also endorses a runny nose. She has been taking Mucinex at home as well as using her albuterol inhaler multiple times a day. She has had a decreased p.o. intake for several days due to the sickness. Patient denies fever, chills, dizziness, lightheadedness, sore throat, sputum production, dyspnea, dyspnea on exertion, chest pain, abdominal pain, nausea, vomiting, diarrhea. She does not use nicotine products or drink alcohol. She does not use oxygen at baseline. She did take her home medications today including her evening medications. She is still on Plavix for history of TIA and PE that was provoked by hip surgery many years ago. She wishes to be DNR/DNI status. Patient's daughter, Blessing, to be updated with any additional decisions or changes in plans. Patient has cognitive impairment that is worsening and there is to have an appointment with her neurologist next week. Discharge Exam Constitutional WD/WN, vitals as above Respiratory normal respiratory effort and + cough Auscultation: no crackles, no rales, no rhonchi and no wheezes Cardiovascular RRR, no murmur, no edema Gastrointestinal (Abdomen) normal bowel sounds, soft, nontender, no hepatosplenomegaly Psychiatric Orientation: alert, oriented to person, oriented to place and cooperative; + not oriented to time Discharge Plan Discharge Items Patient Disposition: Home - Self-Care Reason For Visit: BRONCHITIS,CORONAVIRUS OC 43 Discharge Diagnosis: Acute bronchitis Coronavirus Respiratory failure with hypoxia Condition on Discharge: Fair Activity: As commented below Lifting: Gradually increase as tolerated Bathing: No limitations Exercise/Sports: Gradually increase as tolerated Non-emergency contact: Primary Care Provider and Endoscopy Tech Call non-emergency contact if: you have any medication questions and your symptoms worsen Follow-up/Referrals: Jess Hirsch MD [Primary Care Provider] - (Follow-up within 1 to 2 weeks of discharge) Diet: Heart Healthy Addtl Attending Provider Instructions: Please finish out 6 more days of prednisone at 40 mg daily x 3 days, then 20 mg daily x 3 days then stop. Please finish out 3 more doses of the antibiotics called levofloxacin 1 pill every other day-your next dose will be on 12/03/2024. You will now need to use 1 L via nasal cannula of supplemental oxygen with exertion when you are at home. You should use your albuterol inhaler and the guaifenesin with dextromethorphan cough syrup 4 times a day on a scheduled basis for the next week and then as needed after that. You can take Tylenol and use [id number] lidocaine patches to your ribs at the site of pain from coughing. Pending Studies at Discharge: Yes (Final blood culture results-no growth to date) Stand-Alone Forms: My [facility] Medications and DC Order Prescriptions: New dextromethorphan-guaifenesin [Robitussin Cough-Chest Chicho DM] 5-100 mg/5 mL Liquid 10 ml PO Q6H Qty: 120 0RF Rx Instructions: [id number] levofloxacin 750 mg Tablet 750 mg PO Q48H Qty: 3 0RF prednisone 20 mg tablet 40 mg PO DAILY Qty: 9 0RF Rx Instructions: X 3 days then 20 mg p.o. daily x 3 days then stop Continued atorvastatin 10 mg tablet 10 mg PO 3XWK Qty: 90 3RF amlodipine 2.5 mg tablet 2.5 mg PO DAILY Qty: 90 1RF escitalopram oxalate [Lexapro] 5 mg tablet 5 mg PO DAILY Qty: 30 2RF methocarbamol 500 mg tablet 500 mg PO BID Qty: 60 5RF lidocaine 5 % adhesive patch,medicated 1 patch topical .twice daily PRN (Reason: Pain, Mild) Qty: 15 0RF Rx Instructions: leave on most painful area for up to 12 hrs pantoprazole 40 mg tablet,delayed release (DR/EC) 40 mg PO BID Qty: 60 5RF clopidogrel 75 mg tablet 75 mg PO QAM Qty: 90 1RF losartan 100 mg tablet 100 mg PO QAM Qty: 90 3RF memantine 10 mg tablet 10 mg PO BID Qty: 180 3RF galantamine 4 mg tablet 4 mg PO BIDM Qty: 60 1RF Rx Instructions: administer with AM and PM meals gabapentin 100 mg capsule 100 mg PO Q8H PRN (Reason: pain) Qty: 30 2RF famotidine 40 mg tablet 40 mg PO BID Qty: 180 1RF solifenacin [Vesicare] 5 mg tablet 5 mg PO DAILY albuterol sulfate 90 mcg/actuation HFA aerosol inhaler 2 puff inhalation Q6H PRN (Reason: shortness of breath or wheezing) Qty: 8.5 0RF metronidazole 0.75 % cream 1 applic topical BID PRN (Reason: Skin Irritation) acetaminophen [Tylenol Extra Strength] 500 mg tablet 500 mg PO BID PRN (Reason: Pain) Patient Comments: Patient states she took 4 doses yesterday Probiotic Blend 2 billion cell-50 mg Capsule 1 cap PO HS Discontinued prednisone 10 mg tablet See Rx Instructions PO DAILY Qty: 24 0RF Rx Instructions: 4 tab po daily x 3 days; 3 tab po daily x 3 days; 1 tab po daily x 3 days benzonatate 100 mg capsule See Rx Instructions .Route .COMPLEX Qty: 30 0RF Rx Instructions: take one to two tablets three times a day for cough (may make you sleepy) Discharge Orders: Discharge Order (Routine); Ordered 12/02/24 Ordered By: Darlene Gonzalez Admission Data Admit Date/Time: 11/30/24 01:05 Attending Provider: Darlene Gonzalez Admit Provider: Flash Cabral Primary Care Provider: Jess Hirsch Other Providers: Flash Cabral Hospital Stay Data Consultations 11/30/24 00:41 ED Decision to Admit Stat Pending Results Patient Have Any Pending Studies at Discharge: Yes (Final blood culture results- no growth to date) Discharge Instructions Given to Patient (Per Discharging Provider) Please finish out 6 more days of prednisone at 40 mg daily x 3 days, then 20 mg daily x 3 days then stop. Please finish out 3 more doses of the antibiotics called levofloxacin 1 pill every other day-your next dose will be on 12/03/2024. You will now need to use 1 L via nasal cannula of supplemental oxygen with exertion when you are at home. You should use your albuterol inhaler and the guaifenesin with dextromethorphan cough syrup 4 times a day on a scheduled basis for the next week and then as needed after that. You can take Tylenol and use [id number] lidocaine patches to your ribs at the site of pain from coughing. Total Time Total Time Spent Total Time Spent (In Minutes): 35 minutes Total Time Includes: Examination of the Patient, Discharge Planning and Medication Reconciliation Coding Level of Care Code 16311 INP/OBS DISCH >30 MIN Diagnoses Bronchitis J40 Coronavirus infection B34.2 Interstitial lung disease J84.9 Mild cognitive impairment G31.84
[2024-12-02 12:16] VITALS: O2SAT 92
== END 2024-12-02 13:41 | disposition home or self-care (01) | DRG 202 ==
LOC: ED 21:25 → EDINP 11-30 01:05 → SUATTDRO 11-30 01:05 → 3W 11-30 15:10

== ENCOUNTER 2024-12-05 14:16 | Inpatient (IN) ==
--- NOTE | 2024-12-05 15:28 | Emergency Department Note ---
Impression & Plan SOB (shortness of breath), Coronavirus infection, Wheezing, Leukocytosis, Failure of outpatient treatment ED Provider Note NAME: RADHA LITTLE AGE: 84 SEX: F : 1940 ARRIVES VIA: Walk-In INFORMANT: [Patient][family] ED PROVIDER(S): [Alex Harris MD] CHIEF COMPLAINT: Shortness of breath HISTORY OF PRESENT ILLNESS: The patient is an 84-year-old female who presents to the ER with dyspnea. She was in our hospital for coronavirus and bronchospasm. She was discharged 3 days ago. She is on prednisone and Levaquin. Patient is using 1 L of oxygen at baseline. Today, her cough was worse and she was more short of breath, she presents back for evaluation. There has been no fever, no new sick contacts. The patient does have interstitial lung disease at baseline. She has inhalers at home but does not typically use a nebulizer. PMHx/PSHx/Social Hx: See Below PHYSICAL EXAM: GENERAL: Patient is in no acute distress. HEENT: No acute trauma, normocephalic atraumatic, mucous membranes moist, no nasal congestion. NECK: No stridor, no adenopathy, no meningismus, trachea is midline. LUNGS: Wet cough noted, wheezing bilaterally, diminished breath sounds bilaterally. No respiratory distress. HEART: Without murmurs gallops or rubs, regular rate and rhythm. ABDOMEN: Soft, nontender, no peritonitis. EXTREMITIES: No cyanosis, full range of motion of all the joints without pain or difficulty. NEUROLOGIC: Oriented x 3, no acute motor or sensory deficits, no focal weakness. SKIN: No jaundice, no diaphoresis. DIFFERENTIAL DIAGNOSIS: Bronchitis or pneumonia, CHF, bronchospasm, among others. EMERGENCY DEPARTMENT PROCEDURES: MEDICAL DECISION MAKING: There is a moderate leukocytosis, this could be consistent with infection or her current steroid use. There is a normal hemoglobin and platelet count. No coagulopathy. No renal failure or significant electrolyte abnormality. No concerning liver enzyme elevation. Chest x-ray does not show pneumonia or CHF. On exam, the patient was wheezing and at times, seemed dyspneic. She had a harsh cough. Patient was given a DuoNeb, a second DuoNeb was given. She was given IV Solu- Medrol. The patient presents with cough and shortness of breath. She was just recently in the hospital. She does have underlying lung disease and is now wheezing with a known coronavirus infection. She does appear to require a repeat hospitalization. She has failed outpatient management. I spoke with the patient and the outsole caser. I spoke with her family. The on-call hospitalist was consulted. Prior/Outside records/notes reviewed: Discharge summary note from 12/02/2024 describing her presentation, hospital care and plan at discharge. ECG per my interpretation: Indication was shortness of breath. The ECG shows a normal sinus rhythm with a rate of 76. There is no acute ST elevation, no PVCs. The QTc is 387. Continuous Cardiac Monitoring per my interpretation: An order was placed for continuous cardiac monitoring. The monitor shows a rate of 78 with normal sinus rhythm. Imaging/x-ray results per my interpretation: Chest x-ray does not show CHF or pneumonia. Chronic Medical/Social conditions affecting care: Advanced age, recent hospitalization and discharge. Care/Management discussed with: Case management, the on-call hospitalist. Level of care consideration(s): After review of the information above and other included data: --I believe the patient requires escalation of care to admission DISPOSITION: Admission Past Med/Surg History Problem List Failure of outpatient treatment (Acute) Leukocytosis (Acute) Wheezing (Acute) Coronavirus infection (Acute) SOB (shortness of breath) (Acute) Acute respiratory failure with hypoxia Asthmatic bronchitis Hyponatremia Bronchitis Coronavirus infection (Acute) CAP (community acquired pneumonia) (Acute) Hypertension Mood disorder Cerumen impaction Interstitial lung disease Chronic coughing Benign hypertension (Chronic 02/25/13) Postmenopausal atrophic vaginitis (Acute) Mild cognitive impairment (Acute) Lumbar radiculopathy (Acute) Generalized osteoarthritis of multiple sites (Acute) Dyslipidemia (Chronic) DJD (degenerative joint disease), lumbar Arthritis of knee, left History of bilateral total hip arthroplasty Gastritis Epigastric pain GERD (gastroesophageal reflux disease) Asthma INHALER PRN Spinal stenosis Sensorineural hearing loss (SNHL) of both ears Chronic cerebral ischemia (Acute) Carotid artery stenosis (Acute) Status post laminectomy @ [facility] 02/2021 Medical History Transient ischemic attack (TIA) 01/2003--MEMORY LOSS--ON PLAVIX Respiratory crackles at both lung bases Osteoarthritis Scoliosis On anticoagulant therapy PLAVIX DAILY Pulmonary embolism 2013 Anxiety Memory loss of unknown cause ON MEMANTINE ? D/T TIA---FOLLOWS W DR. 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) Rotator cuff tear arthropathy (02/25/13) Surgical History History of carpal tunnel release History of cataract surgery History of esophagogastroduodenoscopy (EGD) H/O breast surgery H/O repair of right rotator cuff History of total right hip replacement History of total left hip replacement History of appendectomy History of bilateral tubal ligation History of colonoscopy History of tooth extraction History of tonsillectomy and adenoidectomy History of carotid endarterectomy Family History Mother Family history of diabetes mellitus Myocardial infarction Family/Other Family history of diabetes mellitus MATERNAL AUNTS/UNCLES (TOTAL OF 3) Father Prostate cancer Cancer liver Brother Lung disease pulmonary fibrosis Other No family history of adverse response to anesthesia Denies family history of Ovarian cancer Breast cancer Colorectal cancer Social History Smoking Status: Former smoker Tobacco Type: Cigarettes Age Started Using Tobacco: 20; Age Quit Using Tobacco: 53; packs per day: 1; Smoking End Date: 1983; Second Hand Exposure: No; Do You Dip or Chew Tobacco: No; Hx Alcohol Use: No Hx Substance Use: No Preferred Language: Icelandic Communication Ability: Effective Visual Impairment: Limited Hearing Ability: Normal Modular Set Crew Member Required: No Beliefs That Will Affect Care: None marital status: Current Living Situation: Family Current Living Situation Comment: Lives with daughter current occupational status: retired Other Information That Helps Us Care for You: No Feels Safe at Home: Yes Safety Concerns: Feels Safe At This Time Childhood Exposure to Second-Hand Smoke: Yes Diet: regular caffeine: Yes Dental Care, Regularly: Yes Physical Activity Frequency: Does not Exercise Seatbelt Use: always Sunscreen Use: Yes Do you think of yourself as: straight/heterosexual Assistive Devices: Glasses, Hearing Aid - Bilateral and Walker Allergies Allergies Allergy/AdvReac Type Severity Reaction Status Date / Time Iodinated Contrast Media Allergy Intermediate hives Verified 12/05/24 17:46 latex Allergy Intermediate SKIN TEAR Verified 12/05/24 17:46 WHERE ADHESIVE WAS. PAPER TAPE OK promethazine AdvReac Intermediate DELIRIUM Verified 12/05/24 17:46 Home Meds Home Medications Medication Instructions Recorded Confirmed acetaminophen 500 mg tablet 500 mg PO BID PRN Pain 06/17/20 12/05/24 (Tylenol Extra Strength) L.acidophil-L.casei-B.bifid-B.longum-FOS 1 cap PO HS 02/08/22 12/05/24 2 billion cell-50 mg capsule (Probiotic Blend) metronidazole 0.75 % topical cream 1 applic topical BID PRN Skin 11/23/23 12/05/24 Irritation solifenacin 5 mg tablet (Vesicare) 5 mg PO DAILY 11/26/24 12/05/24 benzonatate 100 mg capsule 100 mg PO BID PRN Cough 12/05/24 12/05/24 dextromethorphan polistirex 30 10 ml PO Q12H 12/05/24 12/05/24 mg/5 mL oral susp ext.release 12hr (Delsym 12 hour) guaifenesin 600 mg tablet, 600 mg PO BID 12/05/24 12/05/24 extended release 12 hr (Mucinex) lidocaine 5 % topical patch 1 patch topical DAILY PRN Pain, 12/05/24 12/05/24 Mild prednisone 20 mg tablet 0 mg PO DAILY 12/05/24 12/05/24 Previous Rx's Medication Instructions Recorded atorvastatin 10 mg tablet 10 mg PO 3XWK #90 tabs 09/30/23 galantamine 4 mg tablet 4 mg PO BIDM #60 tabs 05/21/24 memantine 10 mg tablet 10 mg PO BID #180 tabs 05/21/24 amlodipine 2.5 mg tablet 2.5 mg PO DAILY #90 tabs 06/13/24 escitalopram oxalate 5 mg tablet 5 mg PO DAILY #30 tabs 08/14/24 (Lexapro) methocarbamol 500 mg tablet 500 mg PO BID spasms #60 tabs 08/16/24 pantoprazole 40 mg tablet,delayed 40 mg PO BID #60 tabs 09/24/24 release albuterol sulfate 90 mcg/actuation 2 puff inhalation Q6H PRN 10/19/24 aerosol inhaler shortness of breath or wheezing #8.5 grams famotidine 40 mg tablet 40 mg PO BID #180 tabs 10/24/24 gabapentin 100 mg capsule 100 mg PO Q8H PRN pain #30 caps 10/24/24 clopidogrel 75 mg tablet 75 mg PO QAM #90 tabs 10/31/24 losartan 100 mg tablet 100 mg PO QAM #90 tabs 10/31/24 levofloxacin 750 mg tablet 750 mg PO Q48H #3 tabs 12/02/24 Results & Data (ED) Vital Signs Vital Signs - 24 hr 12/05/24 14:28 12/05/24 15:10 12/05/24 15:24 Temperature 36.9 C Temperature Source Temporal Artery Scan Pulse Rate 77 68 78 Pulse Rate [Apical] Respiratory Rate 16 21 Respiratory Effort / Characteristics Non-Labored Spontaneous Respiratory Depth Normal Blood Pressure 147/73 H Blood Pressure [Right Arm] Blood Pressure Mean 97 Blood Pressure Mean [Right Arm] Blood Pressure Position Sitting Pulse Oximetry 97 95 Oxygen Delivery Method Nasal Cannula Nasal Cannula Oxygen Flow Rate 1 1 Sepsis Recent Fever Within 48 Hours No Sepsis New/Unexplained Change in Mental Status N/A Sepsis Action Taken by Nursing No Action Required 12/05/24 17:30 Temperature Temperature Source Pulse Rate Pulse Rate [Apical] 81 Respiratory Rate 19 Respiratory Effort / Characteristics Respiratory Depth Blood Pressure Blood Pressure [Right Arm] 138/70 Blood Pressure Mean Blood Pressure Mean [Right Arm] 92 Blood Pressure Position Pulse Oximetry 95 Oxygen Delivery Method Nasal Cannula Oxygen Flow Rate 1 Sepsis Recent Fever Within 48 Hours Sepsis New/Unexplained Change in Mental Status Sepsis Action Taken by [facility] Medications Current Medication List: was personally reviewed by me Laboratory Data Attestation: I reviewed the patient's lab results. 12/05/24 14:46 12/05/24 14:46 Lab Results 12/05/24 Range/Units 14:46 WBC 14.91 H (4.8-10.8) K/ul RBC 4.90 (4.20-5.40) M/uL Hgb 14.7 (12.0-16.0) g/dl Hct 43.9 (37.0-47.0) % MCV 89.6 (80.0-100.0) fL MCH 30.0 (25.0-34.0) pg MCHC 33.5 (32.0-36.0) g/dL RDW Std Deviation 44.6 (36.4-46.3) fL RDW Coeff of Yadira 13.7 (11.5-14.5) % Plt Count 205 (130-400) K/uL MPV 10.8 (9.4-12.4) fL Immature Gran % (Auto) 1.2 % Neut % (Auto) 88.2 % Lymph % (Auto) 5.3 % Bureau % (Auto) 5.1 % Eos % (Auto) 0.1 % Baso % (Auto) 0.1 % Neut # (Auto) 13.15 H (1.40-6.50) K/uL Lymph # (Auto) 0.79 L (1.20-3.40) K/uL Bureau # (Auto) 0.76 H (0.11-0.59) K/uL Eos # (Auto) 0.02 (0.00-0.50) K/uL Baso # (Auto) 0.01 (0.00-0.20) K/uL Immature Gran # (Auto) 0.18 (0.01-0.20) K/uL PT 10.2 (9.0-12.0) Seconds INR 0.9 (0.9-1.1) APTT 25 (21-31) Seconds PTT Ratio 0.9 Sodium 133 L (136-145) mmol/L Potassium 4.3 (3.5-5.1) mmol/L Chloride 99 (98-107) mmol/L Carbon Dioxide 26 (21-32) mmol/L Anion Gap 8 (3-11) BUN 24 H (6-23) mg/dl Creatinine 0.98 (0.6-1.2) mg/dl Est Cr Clr Drug Dosing 38.3 ml/min eGFR 56.21 BUN/Creatinine Ratio 24.5 H (10-20) Glucose 118 H (70-99(Fasting)) mg/dl Calcium 8.9 (8.6-10.3) mg/dl Total Bilirubin 0.5 (0.2-1.0) mg/dl AST 20 (13-39) U/L ALT 24 (7-52) U/L Alkaline Phosphatase 62 (34-104) U/L Troponin I High Sens 7.0 (0-14) pg/ml Total Protein 6.8 (6.0-8.3) gm/dl Albumin 4.1 (3.4-5.0) gm/dl Globulin 2.7 (2.5-4.0) gm/dl Albumin/Globulin Ratio 1.5 (0.9-2) Administered Medications Acetaminophen (Acetaminophen 325 Mg Tab) 650 mg PO Q6H PRN PRN Reason: Fever or headache Stop: 01/04/25 19:55 Last Admin: 12/05/24 22:10 Dose: 650 mg Documented By: DANIELLA Albuterol (Albut/Ipratrop 3mg/0.5mg Neb 3 Ml Vial) 3 ml NEB QIDR GREGORY; Protocol Stop: 01/04/25 19:55 Last Admin: 12/05/24 20:30 Dose: 3 ml Documented By: MAX Heparin Sodium (Porcine) (Heparin Sod 5,000 Unit/0.5 Ml Vial) 5,000 units SQ Q12 GREGORY Stop: 01/04/25 20:59 Last Admin: 12/05/24 21:52 Dose: 5,000 units Documented By: DANIELLA Methylprednisolone 60 mg/ (Syringe) 0.96 mls @ 1.5 mls/min IV Q6H GREGORY Stop: 01/04/25 20:59 Last Admin: 12/05/24 21:43 Dose: 1.5 mls/min Documented By: DANIELLA Lactobacillus Acidophilus (Advanced Probiotic 625 Mg Capsule) 625 mg PO HS GREGORY Stop: 01/04/25 20:59 Last Admin: 12/05/24 21:52 Dose: 625 mg Documented By: DANIELLA Memantine (Memantine Hcl 10 Mg Tab) 10 mg PO BID GREGORY Stop: 01/04/25 20:59 Last Admin: 12/05/24 21:52 Dose: 10 mg Documented By: DANIELLA Pantoprazole Sodium (Pantoprazole 40 Mg Tab) 40 mg PO BID GREGORY Stop: 01/04/25 20:59 Last Admin: 12/05/24 21:52 Dose: 40 mg Documented By: DANIELLA Discontinued Medications Albuterol (Albut/Ipratrop 3mg/0.5mg Neb 3 Ml Vial) 3 ml NEB NOW STA; Protocol Stop: 12/05/24 15:21 Last Admin: 12/05/24 15:44 Dose: 3 ml Documented By: SANJANA Albuterol (Albut/Ipratrop 3mg/0.5mg Neb 3 Ml Vial) 3 ml NEB NOW STA; Protocol Stop: 12/05/24 16:51 Last Admin: 12/05/24 17:38 Dose: 3 ml Documented By: SANJANA Famotidine (Famotidine 40 Mg Tablet) 40 mg PO NOW ONE Stop: 12/05/24 22:46 Last Admin: 12/05/24 23:13 Dose: 40 mg Documented By: DANIELLA Galantamine Hydrobromide (Galantamine Hydrobromide 4 Mg Tab) 4 mg PO NOW STA Stop: 12/05/24 22:39 Last Admin: 12/05/24 23:12 Dose: 4 mg Documented By: DANIELLA Piperacillin Sod/Tazobactam Sod (Zosyn) 4.5 gm in 100 mls @ 200 mls/hr IV NOW STA; Protocol Stop: 12/05/24 20:46 Last Infusion: 12/05/24 22:55 Dose: Infused Documented By: Admin: 12/05/24 21:48 Dose: 200 mls/hr Documented By: DANIELLA Methocarbamol (Methocarbamol 500 Mg Tablet) 500 mg PO NOW STA Stop: 12/05/24 22:40 Last Admin: 12/05/24 23:13 Dose: 500 mg Documented By: DANIELLA Methylprednisolone (Methylprednisolone 125 Mg/2 Ml Vial) 40 mg IV NOW STA Stop: 12/05/24 16:51 Last Admin: 12/05/24 17:38 Dose: 40 mg Documented By: SANJANA Imaging Data Radiologist's Impression: Chest X-Ray 12/05/24 15:07 XR chest 1V portable CLINICAL HISTORY: Dyspnea. COMPARISON STUDY: Chest radiograph November 29, 2024. FINDINGS: Elevation of the right hemidiaphragm is again noted. There is no pneumothorax or pleural effusion. Linear bibasilar densities represent atelectasis. There is no consolidation to suggest pneumonia. Mild cardiomegaly is unchanged. There is no evidence for pulmonary edema. IMPRESSION: No acute cardiopulmonary findings. No change in appearance of the chest. ACT 112: Negative or not required by law. Electronically signed by: Kd Low M.D. 12/05/2024 3:53 PM Discharge Plan Visit Data Chief Complaint: Shortness of Breath/Dyspnea Stated Complaint: SOB, CAME BACK, COUGHING ED Provider: Alex Harris Discharge Problem: SOB (shortness of breath), Coronavirus infection, Wheezing, Leukocytosis, Failure of outpatient treatment Patient Disposition: Admitted As Inpatient Condition: Fair Discharge Instructions Interventions: ED Discharge Assessment Last Done: 12/05/24 19:43 Discharge Problem: Leukocytosis Qualifiers: Leukocytosis type: unspecified Qualified Code(s): D72.829 - Elevated white blood cell count, unspecified
[2024-12-05 15:39] LABS: Basophils # (auto) 0.01 K/uL (0.00-0.20); Basophils % (auto) 0.1 %; Eosinophils # (auto) 0.02 K/uL (0.00-0.50); Eosinophils % (auto) 0.1 %; Hematocrit (blood only) 43.9 % (37.0-47.0); Hemoglobin 14.7 g/dl (12.0-16.0); Immature Granulocytes # (auto) 0.18 K/uL (0.01-0.20); Immature Granulocytes % (auto) 1.2 %; Lymphocytes # (auto) 0.79 K/uL (1.20-3.40); Lymphocytes % (auto) 5.3 %; Mean Corpuscular Hgb Conc 33.5 g/dL (32.0-36.0); Mean Corpuscular Volume 89.6 fL (80.0-100.0); Mean Platelet Volume 10.8 fL (9.4-12.4); Monocytes # (auto) 0.76 K/uL (0.11-0.59); Monocytes % (auto) 5.1 %; Neutrophils # (auto) 13.15 K/uL (1.40-6.50); Neutrophils % (auto) 88.2 %; Platelet Count 205 K/uL (130-400); RDW Coefficient of Variation 13.7 % (11.5-14.5); RDW Standard Deviation 44.6 fL (36.4-46.3); White Blood Count 14.91 K/ul (4.8-10.8)
[2024-12-05] MEDS: ALBUT/IPRATROP 3MG/0.5MG NEB 3 ML VIAL NEB STA ×2 (15:44→17:38)
[2024-12-05 15:53] LABS: Albumin Globulin Ratio 1.5 (0.9-2); Albumin Level 4.1 gm/dl (3.4-5.0); BUN Creatinine Ratio 24.5 (10-20); Bilirubin,Total 0.5 mg/dl (0.2-1.0); Calcium 8.9 mg/dl (8.6-10.3); Creatinine Clr Calc Pharmacy 38.3 ml/min; Globulin 2.7 gm/dl (2.5-4.0); Potassium 4.3 mmol/L (3.5-5.1); Total Protein 6.8 gm/dl (6.0-8.3)
--- NOTE | 2024-12-05 15:55 | XRay Report ---
XR chest 1V portable CLINICAL HISTORY: Dyspnea. COMPARISON STUDY: Chest radiograph November 29, 2024. FINDINGS: Elevation of the right hemidiaphragm is again noted. There is no pneumothorax or pleural ef fusion. Linear bibasilar densities represent atelectasis. There is no consolidation to suggest pneumo margarita. Mild cardiomegaly is unchanged. There is no evidence for pulmonary edema. IMPRESSION: No acute cardiopulmonary findings. No change in appearance of the chest. ACT 112: Negative or not required by law. Electronically signed by: Kd Low M.D. 12/05/2024 3:53 PM
[2024-12-05 16:04] LABS: INR 0.9 (0.9-1.1); Partial Thromboplastin Ratio 0.9; Partial Thromboplastin Time 25 Seconds (21-31); Prothrombin Time 10.2 Seconds (9.0-12.0)
--- NOTE | 2024-12-05 16:38 | Electrocardiogram Report ---
Test Reason : Blood Pressure : */* mmHG Vent. Rate : 76 BPM Atrial Rate : 76 BPM P-R Int : 160 ms QRS Dur : 70 ms QT Int : 344 ms P-R-T Axes : 60 -35 70 degrees QTcB Int : 387 ms Normal sinus rhythm Left axis deviation Poor R wave progression, consider anterior VT vs. lead placement vs. LVH Abnormal ECG When compared with ECG of 29-Nov-2024 21:40, No significant change was found Confirmed by Omer Obando ([id number]) on 12/05/2024 4:38:27 PM Referred By: REFERRED SELF Confirmed By: Omer Obando
[2024-12-05] MEDS: methylPREDNISolone 125 MG/2 ML VIAL IV STA (17:38)
--- NOTE | 2024-12-05 17:40 | History & Physical Report ---
Date of Service December 05, 2024 Assessment & Plan (1) Asthmatic bronchitis: Plan: Levaquin switched to intravenous Zosyn, day 1. High-dose parenteral steroid therapy. Scheduled DuoNebs. Sputum culture if sputum is produced (2) Acute respiratory failure with hypoxia: Plan: Supplemental oxygen to maintain saturation greater than 90%. Wean off as tolerated (3) Hypertension: Plan: Stable. Continue current medical management with losartan and amlodipine (4) Interstitial lung disease: Plan: By history. She does not have chronic respiratory failure and does not usually use home oxygen Plan Intravenous Zosyn, parenteral steroid therapy, scheduled DuoNebs. Hopefully she can go home in the next 2 to 3 days. History of Present Illness Chief Complaint: Nonproductive cough, shortness of breath, wheezing Primary Care Provider: Jess Hirsch MD 84-year-old white female who was recently hospitalized with asthmatic bronchitis and hypoxia. She was treated with steroid therapy and Levaquin and has continued those medications at discharge. She did well for several days then began wheezing again today with nonproductive cough and dyspnea on exertion. She came to the ED for reevaluation. Chest x-ray does not reveal any evidence of pneumonia or CHF. She is requiring 1 L of oxygen per nasal cannula. On physical examination, she appears to have asthmatic bronchitis. She denies productive cough however. She will be treated with Zosyn, high-dose Solu- Medrol, and scheduled DuoNeb treatments. Hopefully she can go home in 2 to 3 days. She has no sputum production and denies hemoptysis. Also no fever or chills Allergies Allergy/AdvReac Type Severity Reaction Status Date / Time Iodinated Contrast Media Allergy Intermediate hives Verified 12/03/24 14:22 latex Allergy Intermediate SKIN TEAR Verified 12/03/24 14:22 WHERE ADHESIVE WAS. PAPER TAPE OK promethazine AdvReac Intermediate DELIRIUM Verified 12/03/24 14:22 Home Medications Medication Instructions Recorded Confirmed Type acetaminophen 500 mg tablet 500 mg PO BID PRN Pain 06/17/20 12/03/24 History (Tylenol Extra Strength) L.acidophil-L.casei-B.bifid-B.longum-FOS 1 cap PO HS 02/08/22 12/03/24 History 2 billion cell-50 mg capsule (Probiotic Blend) atorvastatin 10 mg tablet 10 mg PO 3XWK #90 tabs 09/30/23 12/03/24 Rx metronidazole 0.75 % topical cream 1 applic topical BID PRN Skin 11/23/23 12/03/24 History Irritation galantamine 4 mg tablet 4 mg PO BIDM #60 tabs 05/21/24 12/03/24 Rx memantine 10 mg tablet 10 mg PO BID #180 tabs 05/21/24 12/03/24 Rx amlodipine 2.5 mg tablet 2.5 mg PO DAILY #90 tabs 06/13/24 12/03/24 Rx escitalopram oxalate 5 mg tablet 5 mg PO DAILY #30 tabs 08/14/24 12/03/24 Rx (Lexapro) methocarbamol 500 mg tablet 500 mg PO BID spasms #60 tabs 08/16/24 12/03/24 Rx lidocaine 5 % topical patch 1 patch topical .twice daily PRN 08/28/24 12/03/24 Rx Pain, Mild #15 ea pantoprazole 40 mg tablet,delayed 40 mg PO BID #60 tabs 09/24/24 12/03/24 Rx release albuterol sulfate 90 mcg/actuation 2 puff inhalation Q6H PRN 10/19/24 12/03/24 Rx aerosol inhaler shortness of breath or wheezing #8.5 grams famotidine 40 mg tablet 40 mg PO BID #180 tabs 10/24/24 12/03/24 Rx gabapentin 100 mg capsule 100 mg PO Q8H PRN pain #30 caps 10/24/24 12/03/24 Rx clopidogrel 75 mg tablet 75 mg PO QAM #90 tabs 10/31/24 12/03/24 Rx losartan 100 mg tablet 100 mg PO QAM #90 tabs 10/31/24 12/03/24 Rx solifenacin 5 mg tablet (Vesicare) 5 mg PO DAILY 11/26/24 12/03/24 History dextromethorphan-guaifenesin 5 10 ml PO Q6H #120 mL 12/02/24 12/03/24 Rx mg-100 mg/5 mL oral liquid (Robitussin Cough-Chest Congestion DM) levofloxacin 750 mg tablet 750 mg PO Q48H #3 tabs 12/02/24 12/03/24 Rx prednisone 20 mg tablet 40 mg (2 x 20 mg) PO DAILY #9 tabs 12/02/24 12/03/24 Rx Past Med/Surg History Problem List Acute respiratory failure with hypoxia Asthmatic bronchitis Hyponatremia Bronchitis Coronavirus infection (Acute) CAP (community acquired pneumonia) (Acute) Hypertension Mood disorder Cerumen impaction Interstitial lung disease Chronic coughing Benign hypertension (Chronic 02/25/13) Postmenopausal atrophic vaginitis (Acute) Mild cognitive impairment (Acute) Lumbar radiculopathy (Acute) Generalized osteoarthritis of multiple sites (Acute) Dyslipidemia (Chronic) DJD (degenerative joint disease), lumbar Arthritis of knee, left History of bilateral total hip arthroplasty Gastritis Epigastric pain GERD (gastroesophageal reflux disease) Asthma INHALER PRN Spinal stenosis Sensorineural hearing loss (SNHL) of both ears Chronic cerebral ischemia (Acute) Carotid artery stenosis (Acute) Status post laminectomy @ [facility] 02/2021 Medical History Transient ischemic attack (TIA) Respiratory crackles at both lung bases Osteoarthritis Scoliosis On anticoagulant therapy Pulmonary embolism Anxiety Memory loss of unknown cause Hyperlipidemia 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) Rotator cuff tear arthropathy (02/25/13) Surgical History History of carpal tunnel release History of cataract surgery History of esophagogastroduodenoscopy (EGD) H/O breast surgery H/O repair of right rotator cuff History of total right hip replacement History of total left hip replacement History of appendectomy History of bilateral tubal ligation History of colonoscopy History of tooth extraction History of tonsillectomy and adenoidectomy History of carotid endarterectomy Family History Mother Family history of diabetes mellitus Myocardial infarction Family/Other Family history of diabetes mellitus MATERNAL AUNTS/UNCLES (TOTAL OF 3) Father Prostate cancer Cancer liver Brother Lung disease pulmonary fibrosis Other No family history of adverse response to anesthesia Denies family history of Ovarian cancer Breast cancer Colorectal cancer Social History Smoking Status: Never smoker Tobacco Type: Cigarettes Age Started Using Tobacco: 20; Age Quit Using Tobacco: 53; packs per day: 1; Second Hand Exposure: No; Do You Dip or Chew Tobacco: No; Hx Alcohol Use: Yes Alcohol type: wine Alcohol Intake Frequency: Monthly or Less Hx Substance Use: No Preferred Language: Kazakh Communication Ability: Effective Visual Impairment: Limited Hearing Ability: Normal Coat Feller Required: No Beliefs That Will Affect Care: None marital status: Current Living Situation: Family Current Living Situation Comment: With daughter current occupational status: retired Feels Safe at Home: Yes Childhood Exposure to Second-Hand Smoke: Yes Diet: regular caffeine: Yes Dental Care, Regularly: Yes Physical Activity Frequency: Does not Exercise Seatbelt Use: always Sunscreen Use: Yes Do you think of yourself as: straight/heterosexual Assistive Devices: Walker Review of Systems 2 Review of Systems: Constitutionalno fever or chills ENTno blurred vision, no double vision, no epistaxis, no sore throat Respiratorynonproductive cough. Dyspnea on exertion. Wheezing. No hemoptysis Cardiacno palpitations, no chest pain, no syncope Alison nausea, vomiting, diarrhea, melena, hematochezia GUno urinary retention, no urinary incontinence, no dysuria, no hematuria Musculoskeletalno joint pain, no muscle tenderness Skinno bruising, no rashes, no pruritus Neurono isolated weakness, no paresthesia, no weakness Psychno depression, no anxiety Physical Exam 2 Physical Exam: General-alert and oriented x3, no fever, no chills HEENT-head atraumatic and normocephalic, pupils equal and reactive to light, extraocular muscles intact Neck-no lymphadenopathy or thyromegaly, trachea midline Chest-midline rhonchi. Bilateral expiratory wheezes. No dullness to percussion. No inspiratory rales Cardiac-regular rate and rhythm, normal S1 and S2 Abdomen-normal bowel sounds, no hepatosplenomegaly Extremities-no cyanosis, clubbing, or edema Neuro-cranial nerves II through XII intact, motor and sensory function within normal limits, strength symmetrical, no focal deficits Psych-normal affect, normal mood Results & Data Results & Data Vital Signs (Past 12 Hours) Vital Signs Temp Pulse Pulse Resp BP BP Pulse Ox 12/05/24 17:30 81 19 138/70 95 12/05/24 15:24 78 12/05/24 15:10 68 21 95 12/05/24 14:28 36.9 C 77 16 147/73 H 97 O2 Del Method O2 Flow Rate 12/05/24 17:30 Nasal Cannula 1 12/05/24 15:24 12/05/24 15:10 Nasal Cannula 1 12/05/24 14:28 Nasal Cannula 1 Laboratory Results 12/05/24 14:46 12/05/24 14:46 Code Status & VTE Plan Code Status Full code VTE Prophylaxis Plan VTE Prophylaxis will be ordered: Yes PG Care Time/CCT Total # of Minutes Spent Total Time Spent with Patient: Total time spent is greater than 50% in coordination of care (as documented) at patient's floor/unit and/or counseling patient: Coding Level of Care Code 16968 INT INP/OBS CARE 375MIN Diagnoses Asthmatic bronchitis J45.909 Acute respiratory failure with hypoxia J96.01 Hypertension I10 Interstitial lung disease J84.9
[2024-12-05] MEDS ORDERED: methylPREDNISolone 10 mg/mL (For Ped Dose < 7mg) IV SCH (19:56)
[2024-12-05] MEDS ORDERED: ONDANSETRON INJ 2 MG/ML 2 ML VIAL IV PRN (19:56)
[2024-12-05] MEDS: ALBUT/IPRATROP 3MG/0.5MG NEB 3 ML VIAL NEB SCH (20:30)
[2024-12-05] MEDS: methylPREDNISolone 60 MG in SYRINGE 0 ML IV SCH (21:43)
[2024-12-05] MEDS: 4.5GM X1 IV STA (21:48)
[2024-12-05] MEDS: ADVANCED PROBIOTIC 625 MG CAPSULE PO SCH (21:52)
[2024-12-05] MEDS: HEPARIN SOD 5,000 UNIT/0.5 ML VIAL SQ SCH (21:52)
[2024-12-05] MEDS: MEMANTINE HCL 10 MG TAB PO SCH (21:52)
[2024-12-05] MEDS: PANTOprazole 40 MG TAB PO SCH (21:52)
[2024-12-05] MEDS: ACETAMINOPHEN 325 MG TAB PO PRN (22:10)
[2024-12-05] MEDS: GALANTAMINE HYDROBROMIDE 4 MG TAB PO STA (23:12)
[2024-12-05] MEDS: FAMOTIDINE 40 MG TABLET PO ONE (23:13)
[2024-12-05] MEDS: METHOCARBAMOL 500 MG TABLET PO STA (23:13)
[2024-12-06] MEDS: PIPERACILLIN/TAZOBACTAM 4.5 GM/100 ML BAG IV SCH (01:33)
[2024-12-06 07:59] LABS: Hematocrit (blood only) 41.2 % (37.0-47.0); Hemoglobin 13.8 g/dl (12.0-16.0); Mean Corpuscular Hemoglobin 29.6 pg (25.0-34.0); Mean Corpuscular Hgb Conc 33.5 g/dL (32.0-36.0); Mean Corpuscular Volume 88.2 fL (80.0-100.0); Mean Platelet Volume 10.7 fL (9.4-12.4); Platelet Count 197 K/uL (130-400); RDW Coefficient of Variation 13.9 % (11.5-14.5); RDW Standard Deviation 44.2 fL (36.4-46.3); Red Blood Count 4.67 M/uL (4.20-5.40); White Blood Count 11.05 K/ul (4.8-10.8)
[2024-12-06 08:13] LABS: BUN Creatinine Ratio 20.8 (10-20); Potassium 4.4 mmol/L (3.5-5.1)
[2024-12-06 08:21] LABS: Basophils # (auto) 0.01 K/uL (0.00-0.20); Basophils % (auto) 0.1 %; Immature Granulocytes # (auto) 0.14 K/uL (0.01-0.20); Immature Granulocytes % (auto) 1.3 %; Lymphocytes # (auto) 0.63 K/uL (1.20-3.40); Lymphocytes % (auto) 5.7 %; Monocytes # (auto) 0.29 K/uL (0.11-0.59); Monocytes % (auto) 2.6 %; Neutrophils # (auto) 9.98 K/uL (1.40-6.50); Neutrophils % (auto) 90.3 %
[2024-12-06] MEDS: GALANTAMINE HYDROBROMIDE 4 MG TAB PO SCH (08:40)
[2024-12-06] MEDS: ESCITALOPRAM OXALATE 10 MG TAB PO SCH (08:41)
[2024-12-06] MEDS: amLODIPine BESYLATE 5 MG TAB PO SCH (08:41)
[2024-12-06] MEDS: CLOPIDOGREL BISULFATE 75 MG TAB PO SCH (08:41)
[2024-12-06] MEDS: LOSARTAN POTASSIUM 50 MG TAB PO SCH (08:42)
[2024-12-06] MEDS: OXYBUTYNIN CHLORIDE XL 5 MG TABCR PO SCH (08:42)
--- NOTE | 2024-12-06 12:56 | Hospitalist Progress Note ---
Date of Service December 06, 2024 Assessment & Plan (1) Asthmatic bronchitis: Plan: Outpatient Levaquin has been switched to intravenous Zosyn, day 2. High-dose parenteral steroid therapy has helped. Continue scheduled DuoNebs. Sputum culture requested since she has occasional productive cough. (2) Acute respiratory failure with hypoxia: Plan: Resolved. She is now on room air (3) Hypertension: Plan: Stable. Continue current medical management with losartan and amlodipine (4) Interstitial lung disease: Plan: By history. She does not have chronic respiratory failure and does not usually use home oxygen Plan Hopeful discharge to home tomorrow, December 07 Admission and Anticipated Discharge Date Admission Date: December 05, 2024 Subjective Improved. No acute distress. She is now on room air. Daughters at the bedside. She is occasionally producing sputum and a culture will be obtained if collected. She remains on intravenous Zosyn, day 2 along with parenteral steroids and scheduled DuoNebs. Hopefully she can go home tomorrow, December 07 Review of Systems 2 Review of Systems: Constitutionalno fever or chills ENTno blurred vision, no double vision, no epistaxis, no sore throat Respiratoryoccasionally productive cough. No hemoptysis. Dyspnea on exertion. Wheezing has improved. Cardiacno palpitations, no chest pain, no syncope Alison nausea, vomiting, diarrhea, melena, hematochezia GUno urinary retention, no urinary incontinence, no dysuria, no hematuria Musculoskeletalno joint pain, no muscle tenderness Skinno bruising, no rashes, no pruritus Neurono isolated weakness, no paresthesia, no weakness Psychno depression, no anxiety Physical Exam 2 Physical Exam: General-alert and oriented x3, no fever, no chills HEENT-head atraumatic and normocephalic, pupils equal and reactive to light, extraocular muscles intact Neck-no lymphadenopathy or thyromegaly, trachea midline Chest-rhonchi and wheezing have improved. No dullness to percussion. No dullness to percussion. No inspiratory rales Cardiac-regular rate and rhythm, normal S1 and S2 Abdomen-normal bowel sounds, no hepatosplenomegaly Extremities-no cyanosis, clubbing, or edema Neuro-cranial nerves II through XII intact, motor and sensory function within normal limits, strength symmetrical, no focal deficits Psych-normal affect, normal mood Results & Data Results & Data Vital Signs (Past 12 Hours) Vital Signs Temp Pulse Pulse Resp BP Pulse Ox O2 Del Method 12/06/24 11:38 36.7 C 73 18 143/51 H 93 Room Air 12/06/24 10:47 76 16 97 Nasal Cannula 12/06/24 08:19 Nasal Cannula 12/06/24 07:33 36.6 C 77 18 133/72 96 Room Air 12/06/24 07:24 86 14 98 Nasal Cannula 12/06/24 07:10 74 12/06/24 05:15 36.6 C 76 20 129/67 95 Room Air O2 Flow Rate 12/06/24 11:38 12/06/24 10:47 1 12/06/24 08:19 1 12/06/24 07:33 12/06/24 07:24 1.5 12/06/24 07:10 12/06/24 05:15 Laboratory Results 12/06/24 07:33 12/06/24 07:33 PG Care Time/CCT Total # of Minutes Spent Total Time Spent with Patient: Total time spent is greater than 50% in coordination of care (as documented) at patient's floor/unit and/or counseling patient: Coding Level of Care Code 31609 SUB INP/OBS CARE 2/35MIN Diagnoses Asthmatic bronchitis J45.909 Acute respiratory failure with hypoxia J96.01 Hypertension I10 Interstitial lung disease J84.9
[2024-12-07 08:14] LABS: Basophils # (auto) 0.02 K/uL (0.00-0.20); Basophils % (auto) 0.1 %; Hematocrit (blood only) 40.6 % (37.0-47.0); Hemoglobin 13.7 g/dl (12.0-16.0); Immature Granulocytes # (auto) 0.22 K/uL (0.01-0.20); Immature Granulocytes % (auto) 1.2 %; Lymphocytes # (auto) 0.64 K/uL (1.20-3.40); Lymphocytes % (auto) 3.5 %; Mean Corpuscular Hemoglobin 29.5 pg (25.0-34.0); Mean Corpuscular Hgb Conc 33.7 g/dL (32.0-36.0); Mean Corpuscular Volume 87.5 fL (80.0-100.0); Mean Platelet Volume 10.9 fL (9.4-12.4); Monocytes # (auto) 0.97 K/uL (0.11-0.59); Monocytes % (auto) 5.3 %; Neutrophils # (auto) 16.62 K/uL (1.40-6.50); Neutrophils % (auto) 89.9 %; Platelet Count 221 K/uL (130-400); RDW Coefficient of Variation 14.2 % (11.5-14.5); RDW Standard Deviation 45.3 fL (36.4-46.3); Red Blood Count 4.64 M/uL (4.20-5.40); White Blood Count 18.47 K/ul (4.8-10.8)
[2024-12-07 08:30] LABS: BUN Creatinine Ratio 19.2 (10-20); Calcium 9.1 mg/dl (8.6-10.3); Creatinine Clr Calc Pharmacy 29.9 ml/min; Potassium 4.3 mmol/L (3.5-5.1)
[2024-12-07 10:50] VITALS: TEMP 98.2
--- NOTE | 2024-12-07 12:54 | Discharge Summary ---
Discharge Summary Date of Service December 07, 2024 Principal Dx & Hospital Course #1 = Principal Diagnosis (1) Asthmatic bronchitis: Outpatient Levaquin has been switched to intravenous Zosyn, day 2. High-dose parenteral steroid therapy has helped. Continue scheduled DuoNebs. Sputum culture requested since she has occasional productive cough. (2) Acute respiratory failure with hypoxia: Resolved. She is now on room air (3) Hypertension: Stable. Continue current medical management with losartan and amlodipine (4) Interstitial lung disease: By history. She does not have chronic respiratory failure and does not usually use home oxygen Plan Hopeful discharge to home tomorrow, December 07 Admission HPI Per Admitting Provider 84-year-old white female who was recently hospitalized with asthmatic bronchitis and hypoxia. She was treated with steroid therapy and Levaquin and has continued those medications at discharge. She did well for several days then began wheezing again today with nonproductive cough and dyspnea on exertion. She came to the ED for reevaluation. Chest x-ray does not reveal any evidence of pneumonia or CHF. She is requiring 1 L of oxygen per nasal cannula. On physical examination, she appears to have asthmatic bronchitis. She denies productive cough however. She will be treated with Zosyn, high-dose Solu- Medrol, and scheduled DuoNeb treatments. Hopefully she can go home in 2 to 3 days. She has no sputum production and denies hemoptysis. Also no fever or chills Discharge Exam GENERAL APPEARANCE NAD, activity normal for age, well developed/ well nourished, no cyanosis, pallor, or diaphoresis. EYES lids/conjunctiva normal. EARS/NOSE/THROAT Mucous membranes moist, nares normal, lips/teeth normal uvula midline without oral pharyngeal erythema, exudate or swelling TMs normal bilaterally. No lymphangitis/lymphedema. HEAD/NECK normocephalic atraumatic, no facial trauma, neck is supple. RESPIRATORY respiratory effort normal, speaks in full sentences, no tripod position, no accessory muscle use. Lungs clear to auscultation without rhonchi, wheezes, rales CARDIAC Regular rate and rhythm, no edema. ABDOMINAL Soft, ND/NT. No evidence of fluid wave. No pulsatile masses on exam, rebound tenderness, Gardner sign or pain over Mcburney's point. MUSCLES/EXTREMITIES No abnormal range of motion, no swelling. SKIN Warm, pink and dry. No rashes, dermatoses, petechiae or lesions. NEUROLOGICAL Speech is clear and appropriate. Normal level of consciousness. Gait and coordination are normal. 5/5 strength in all extremities. PSYCH Normal mood and affect. Judgement/competence is appropriate Discharge Plan Discharge Items Patient Disposition: Home - Self-Care Reason For Visit: ASTHMATIC BRONCHITIS, ACUTE HYPOXIC RESP FAILURE Discharge Diagnosis: bronchitis Condition on Discharge: Fair Activity: Resume your previous activity Non-emergency contact: Primary Care Provider Call non-emergency contact if: you have any medication questions Follow-up/Referrals: Jess Hirsch MD [Primary Care Provider] - Diet: Regular Addtl Attending Provider Instructions: Follow up with PMD in 2 weeks Pending Studies at Discharge: No Stand-Alone Forms: My [employer], Smoking Cessation Medications and DC Order Prescriptions: New amoxicillin-pot clavulanate 875-125 mg tablet 1 tab PO Q12H Qty: 10 0RF prednisone 10 mg tablet 10 mg PO DAILY Qty: 20 0RF Rx Instructions: give 4 tabs daily for 2 days then, 3 tabs daily for 2 days then, 2 tabs daily for 2 days then, 1 tab daily for 2 days. Continued atorvastatin 10 mg tablet 10 mg PO 3XWK Qty: 90 3RF escitalopram oxalate [Lexapro] 5 mg tablet 5 mg PO DAILY Qty: 30 2RF methocarbamol 500 mg tablet 500 mg PO BID Qty: 60 5RF pantoprazole 40 mg tablet,delayed release (DR/EC) 40 mg PO BID Qty: 60 5RF clopidogrel 75 mg tablet 75 mg PO QAM Qty: 90 1RF losartan 100 mg tablet 100 mg PO QAM Qty: 90 3RF amlodipine 2.5 mg tablet 2.5 mg PO DAILY Qty: 90 1RF memantine 10 mg tablet 10 mg PO BID Qty: 180 3RF galantamine 4 mg tablet 4 mg PO BIDM Qty: 60 1RF Rx Instructions: administer with AM and PM meals gabapentin 100 mg capsule 100 mg PO Q8H PRN (Reason: pain) Qty: 30 2RF famotidine 40 mg tablet 40 mg PO BID Qty: 180 1RF solifenacin [Vesicare] 5 mg tablet 5 mg PO DAILY albuterol sulfate 90 mcg/actuation HFA aerosol inhaler 2 puff inhalation Q6H PRN (Reason: shortness of breath or wheezing) Qty: 8.5 0RF metronidazole 0.75 % cream 1 applic topical BID PRN (Reason: Skin Irritation) acetaminophen [Tylenol Extra Strength] 500 mg tablet 500 mg PO BID PRN (Reason: Pain) Patient Comments: Patient states she took 4 doses yesterday Probiotic Blend 2 billion cell-50 mg Capsule 1 cap PO HS dextromethorphan polistirex [Delsym 12 hour] 30 mg/5 mL Suspension,Extended Rel 12 Hr 10 ml PO Q12H benzonatate 100 mg capsule 100 mg PO BID PRN (Reason: Cough) guaifenesin [Mucinex] 600 mg Tablet Extended Release 12hr 600 mg PO BID prednisone 20 mg tablet 0 mg PO DAILY Rx Instructions: Start Date 12/02/24 x6 day supply. Take 40mg daily x 3 days; then 20mg daily x 3 days then stop lidocaine 5 % adhesive patch,medicated 1 patch topical DAILY PRN (Reason: Pain, Mild) Rx Instructions: leave on most painful area for up to 12 hrs Discontinued levofloxacin 750 mg Tablet 750 mg PO Q48H Qty: 3 0RF Rx Instructions: Start Date 12/02/24 x6 day supply Discharge Orders: Discharge Order (Routine); Ordered 12/07/24 Ordered By: Anthony Mascorro Admission Data Admit Date/Time: 12/05/24 17:35 Attending Provider: Anthony Mascorro Admit Provider: Berto Copeland Primary Care Provider: Jess Hirsch Other Providers: Berto Copeland; [facility] Fax Hospital Stay Data Consultations 12/05/24 17:28 ED Decision to Admit Stat Pending Results Patient Have Any Pending Studies at Discharge: No Discharge Instructions Given to Patient (Per Discharging Provider) Follow up with PMD in 2 weeks Total Time Total Time Spent Total Time Spent (In Minutes): 50 Coding Level of Care Code 01151 INP/OBS DISCH >30 MIN Diagnoses Asthmatic bronchitis J45.909 Acute respiratory failure with hypoxia J96.01 Hypertension I10 Interstitial lung disease J84.9
[2024-12-07 13:08] VITALS: BP 164/76
[2024-12-07 13:18] VITALS: PULSE 88; RESP 16; O2SAT 94
== END 2024-12-07 13:46 | disposition home or self-care (01) | DRG 202 ==
LOC: ED 14:16 → 2W 17:35 → SUATTDRO 17:35 → 2W 19:43